=== PATIENT | female | born 1955 | race African-American/Black ===

== ENCOUNTER 2019-08-03 14:29 | Emergency (ER) | payer MEDICARE, OTHER ==
[~2019-08-03] VITALS: Ht 160 cm; Wt 99.8 kg
[2019-08-03] MEDS ORDERED: CARVEDILOL12.5 MG ORAL (14:48)
[2019-08-03] MEDS ORDERED: PRO-STAT LIQUID30 ML ORAL (14:48)
[2019-08-03] MEDS ORDERED: VITAMIN C500 M1 ORAL (14:48)
[2019-08-03] MEDS ORDERED: MULTIVITAMINS1 EAC2 ORAL (14:48)
[2019-08-03] MEDS ORDERED: LOSARTAN POTASS50 MG ORAL (14:48)
[2019-08-03] MEDS ORDERED: ATORVASTATIN CA40 MG ORAL (14:48)
[2019-08-03] MEDS ORDERED: CLONIDINE HCL0.2 MG PO (14:48)
[2019-08-03] MEDS ORDERED: NORCO 5-325 TA1 EACH ORAL (14:48)
[2019-08-03] MEDS ORDERED: ISOSORBIDE MONO20 MG PO (14:48)
[2019-08-03] MEDS ORDERED: ALLOPURINOL100 M1 ORAL (14:48)
[2019-08-03] MEDS ORDERED: ZINC SULFATE220 M1 ORAL (14:48)
--- NOTE | 2019-08-03 14:50 | NUR ---
ED Nurse Note: Pt JOSSELYN PEREIRA 60 from [facility] d/t [facility]. Pt awake, verbally responsive, oriented to self only. On room air, saturating 100% at this time. at bedside, states pt has history of stroke x3 months ago. Pt placed on hospital gown, manager monitoring, and cont. pulse ox. Pt vomiting, ERMD at bedside, aware. IV on left wrist and right FA noted. Blood glucose 238. EKG done.
--- NOTE | 2019-08-03 14:50 | Emergency Room Report ---
History of Present Illness General Chief Complaint: Altered Level of Consciousness Source: Family Member, Medical Record, EMS Present Illness HPI Disclaimer: Please note that this report is being documented using [employer] technology. This can lead to erroneous entry secondary to incorrect interpretation by the dictating instrument. HPI: 64-year-old female with history of multiple prior strokes, the last of which approximately 2.5 to 3 months ago, residual right-sided weakness, dementia , memory deficits, hypertension, hyperlipidemia, diabetes presents for evaluation of altered mental status. She was in her usual state of health with her family when she had sudden change in her mentation. Family says she lost consciousness and was unresponsive for several minutes. She awoke and was able to answer some questions but is not behaving normally according to family. EMS found her with systolic blood pressures in the 90s and blood sugar in the 350s. She is moving all extremities though has weakness on the right side. is here he states she had a stroke approximately 2.5 to 3 months ago but cannot recall whether he was ischemic or hemorrhagic. Does not believe she was given clot busting medications PMH: CVA, diabetes, hypertension, hyperlipidemia, memory deficits, weakness PSH: Right TMA Allergies: None listed Social Hx: None reported Allergies: Coded Allergies: No Known Allergies (Unverified , 08/03/19) Nursing Documentation-PMH Hx Hypertension: Yes Hx Diabetes: Yes - CKD Hx Cerebrovascular Accident: Yes Review of Systems All Other Systems: negative except mentioned in HPI Physical Exam Vital Signs Date Time Temp Pulse Resp B/P (MAP) Pulse Ox O2 Delivery O2 Flow Rate FiO2 08/03/19 14:29 97.9 88 18 149/60 (89) 98 Room Air General: Awake and alert, no acute distress HEENT: NC/AT. EOMI. PERRLA. Cannot assess visual sims. No nystagmus. Facial expressions are symmetrical. No facial droop. Cardiovascular: RRR. S1 and S2 normal. No murmur appreciated Resp: Normal work of breathing. No cough, wheezing or crackles appreciated Abdomen: Patient actively vomiting during exam. Abdomen is soft, nondistended. Nontender Skin: Intact. No abrasions, laceration or rash over the exposed skin MSK: Normal tone and bulk. Moving all extremities. No obvious deformity. No drift in the upper extremities. The left leg falls to the bed immediately as does the right leg. Some effort against gravity on both sides. Right TMA scar is intact, no surrounding erythema. Neuro: Awake and alert confused. Oriented to self only.. Facial expression symmetrical. No dysarthria. Cannot perform testing for ataxia. Sensation to light touch is intact over the upper and lower extremities. Fund of knowledge is very poor. Possible aphasia. NIH: 8 Procedures Critical Care Time Critical Care Time Total critical care time: Approximately 45 minutes Due to a high probability of clinically significant, life threatening deterioration, the patient required the highest level of preparedness to intervene emergently and I personally spent this critical care time directly and personally managing the patient. This critical care time included obtaining a history, examining the patient, pulse oximetry, ordering and reviewing studies , ordering treatments, evaluating response to treatment and updating management plan as needed, frequent reassessment and discussion with other providers as well as arranging for ultimate disposition. This critical to care time was performed to assess and manage the high probability of life-threatening deterioration that could result in multiorgan failure. This critical care time is separate from the separately billable procedures and treating other patients. Medical Decision Making Diagnostic Impression: Primary Impression: Altered level of consciousness Additional Impressions: Encephalopathy UTI (urinary tract infection) HEIDI (acute kidney injury) Hyperkalemia ER Course This 64-year-old female presenting with altered mental status, NIH of 8, actively vomiting with symptom onset approximately 30 minutes ago. She has a recent stroke within the past 2.5 to 3 months at [facility]. We will attempt to obtain records however at this time it appears that this would be a contraindication to thrombolytic therapy. Will send for stat CT scan of the head. Metabolic and infectious work-up initiated. Laboratory Tests Test 08/03/19 15:00 08/03/19 15:50 White Blood Count 7.1 K/UL (4.8-10.8) Red Blood Count 3.33 M/UL (4.20-5.40) L Hemoglobin 9.6 G/DL (12.0-16.0) L Hematocrit 29.1 % (37.0-47.0) L Mean Corpuscular Volume 87 FL (80-99) Mean Corpuscular Hemoglobin 28.9 PG (27.0-31.0) Mean Corpuscular Hemoglobin Concent 33.0 G/DL (32.0-36.0) Red Cell Distribution Width 17.4 % (11.6-14.8) H Platelet Count 177 K/UL (150-450) Mean Platelet Volume 9.4 FL (6.5-10.1) Neutrophils (%) (Auto) 48.9 % (45.0-75.0) Lymphocytes (%) (Auto) 39.0 % (20.0-45.0) Monocytes (%) (Auto) 7.0 % (1.0-10.0) Eosinophils (%) (Auto) 4.0 % (0.0-3.0) H Basophils (%) (Auto) 1.1 % (0.0-2.0) Prothrombin Time 10.1 SEC (9.30-11.50) Prothrombin Time INR 0.9 (0.9-1.1) PTT 23 SEC (23-33) Sodium Level 140 MMOL/L (136-145) Potassium Level 5.9 MMOL/L (3.5-5.1) H Chloride Level 106 MMOL/L (98-107) Carbon Dioxide Level 24 MMOL/L (21-32) Anion Gap 10 mmol/L (5-15) Blood Urea Nitrogen 53 mg/dL (7-18) H Creatinine 3.6 MG/DL (0.55-1.30) H Estimate Glomerular Filtration Rate 15.5 mL/min (>60) Glucose Level 237 MG/DL (74-106) H Calcium Level 10.0 MG/DL (8.5-10.1) Total Bilirubin 0.2 MG/DL (0.2-1.0) Aspartate Amino Transferase (AST) 17 U/L (15-37) Alanine Aminotransferase (ALT) 23 U/L (12-78) Alkaline Phosphatase 181 U/L (46-116) H Troponin I 0.006 ng/mL (0.000-0.056) Total Protein 8.0 G/DL (6.4-8.2) Albumin 2.3 G/DL (3.4-5.0) L Globulin 5.7 g/dL Albumin/Globulin Ratio 0.4 (1.0-2.7) L Triglycerides Level 63 MG/DL (30-150) Cholesterol Level 123 MG/DL (< 200) LDL Cholesterol 61 mg/dL (<100) HDL Cholesterol 51 MG/DL (40-60) Cholesterol/HDL Ratio 2.4 (3.3-4.4) L Lipase 1018 U/L (73-393) H Urine Color Pale yellow Urine Appearance Very cloudy Urine pH 7 (4.5-8.0) Urine Specific [place] 1.005 (1.005-1.035) Urine Protein 4+ (NEGATIVE) H Urine Glucose (UA) 2+ (NEGATIVE) H Urine Ketones Negative (NEGATIVE) Urine Blood 3+ (NEGATIVE) H Urine Nitrite Negative (NEGATIVE) Urine Bilirubin Negative (NEGATIVE) Urine Urobilinogen Normal MG/DL (0.0-1.0) Urine Leukocyte Esterase 3+ (NEGATIVE) H Urine RBC 2-4 /HPF (0 - 2) H Urine WBC Tntc /HPF (0 - 2) H Urine Squamous Epithelial Cells Few /LPF (NONE/OCC) Urine Bacteria Few /HPF (NONE) EKG Diagnostic Results EKG Time: 14:53 Rate: normal Rhythm: NSR ST Segments: no acute changes Other Impression Sinus rhythm, right axis deviation, inverted T waves in the precordial leads V3 through V6. No ST segment changes. Normal intervals. Rhythm Strip Diag. Results Rhythm Strip Time: 14:53 EP Interpretation: yes Rate: 70 Rhythm: NSR, no PVC's, no ectopy CT/MRI/US Diagnostic Results CT/MRI/US Diagnostic Results : Impression Preliminary Findings Only See Final Report For Complete Findings MRI HEAD Without Contrast: Possible 4 mm small lacunar infarct right of midline pericallosal body image 21 series 3 Chronic and involutional changes No midline shift Major intracranial flow voids appear within limits Radiologist: Larry Britt M.D. Study ready at 17:07 and initial results transmitted at 18:07 Reevaluation Time: 15:22 Last Vital Signs Date Time Temp Pulse Resp B/P (MAP) Pulse Ox O2 Delivery O2 Flow Rate FiO2 08/03/19 14:29 97.9 88 18 149/60 (89) 98 Room Air Reevaluation Impression CT scan does not show evidence of acute bleed but there is evidence of moderate brain atrophy as well as chronic small vessel disease involving white matter tracts. Patient symptoms are improving. She is now more conversant and can follow complex directions. Family states that she is near her baseline. She is no longer vomiting. Given the proximity of her last stroke and her rapidly improving symptoms we have chosen not to give thrombolytics at this time. Continue to watch closely and admit to the hospital for close monitoring. Labs are pending. 1740: Labs show mild hyperkalemia as well as an acute kidney injury with an elevated creatinine and BUN. There is also evidence of a significant urinary tract infection. The patient was given ceftriaxone. Mentation continues to improve but according to her she is still not returned to her baseline. 1914 MRI shows a questionable lacunar infarct. Unclear whether or not this is new and a final report will be dictated. Patient remained stable for transport. [facility] Condition: Stable Caleb Burgos MD Aug 03, 2019 14:50
--- NOTE | 2019-08-03 14:55 | NUR ---
ED Nurse Note: Pt picked up for CT.
[2019-08-03 15:30] VITALS: BP 142/52
--- NOTE | 2019-08-03 15:40 | Diagnostic Imaging Report ---
Indication: Altered mental status Technique: Contiguous 5 mm thick transaxial imaging of the head obtained in a Siemens Sensation [address] scanner. Soft tissue and bone windows generated. Automatic Exposure Control was utilized. Total Dose length Product (DLP): 1293.[address] Dose Index Volume (CTDIvol): 62.7 mGy Comparison: none Findings: There is moderate prominence of the ventricles, basal cisterns, and cerebral sulci consistent with atrophy. Moderate, nonspecific, white matter hypoattenuation is noted throughout the brain consistent with chronic small vessel disease. There is no midline shift, edema, acute hemorrhage, mass effect, or abnormal extra-axial fluid collections. Bones are unremarkable. Impression: No acute intracranial bleed, mass effect or edema. Moderate atrophy of the brain. Evidence of chronic small vessel disease involving white matter tracts. The CT scanner at [facility] is accredited by the [employer] and the scans are performed using dose optimization techniques as appropriate to a performed exam including Automatic Exposure control.
[2019-08-03 15:49] LABS: BASOPHILS % (AUTO) 1.1 % (0.0-2.0); HEMATOCRIT 29.1 % (37.0-47.0); HEMOGLOBIN 9.6 G/DL (12.0-16.0); MEAN CORPUSCULAR VOLUME 87 FL (80-99); NEUTROPHILS % (AUTO) 48.9 % (45.0-75.0); PLATELET COUNT 177 K/UL (150-450); RED BLOOD COUNT 3.33 M/UL (4.20-5.40); RED CELL DISTRIBUTION WIDTH 17.4 % (11.6-14.8); WHITE BLOOD COUNT 7.1 K/UL (4.8-10.8)
--- NOTE | 2019-08-03 15:50 | NUR ---
ED Nurse Note: Peña catheter inserted, 16Fr, patient tolerated procedure well. Urine sample collected and swabs for MRSA/VRE/CRE done, sent down to labs.
[2019-08-03 15:54] LABS: INR 0.9 (0.9-1.1)
--- NOTE | 2019-08-03 15:58 | NUR ---
ED Nurse Note: Patient picked up for MRI.
[2019-08-03 16:04] LABS: ANION GAP 10 mmol/L (5-15); BLOOD UREA NITROGEN 53 mg/dL (7-18); CARBON DIOXIDE 24 MMOL/L (21-32); CHLORIDE 106 MMOL/L (98-107); CREATININE 3.6 MG/DL (0.55-1.30); POTASSIUM 5.9 MMOL/L (3.5-5.1); SODIUM 140 MMOL/L (136-145)
[2019-08-03 16:10] LABS: ALANINE AMINOTRANSFERASE 23 U/L (12-78); ALBUMIN 2.3 G/DL (3.4-5.0); ALBUMIN/GLOBULIN RATIO 0.4 (1.0-2.7); ALKALINE PHOSPHATASE 181 U/L (46-116); ASPARTATE AMINO TRANSFERASE 17 U/L (15-37); BILIRUBIN,TOTAL 0.2 MG/DL (0.2-1.0); CHOLESTEROL 123 MG/DL (< 200); HDL CHOLESTEROL 51 MG/DL (40-60); TRIGLYCERIDES 63 MG/DL (30-150)
[2019-08-03 16:33] LABS: APPEARANCE,URINE VERY CLOUDY; BILIRUBIN, URINE NEGATIVE (NEGATIVE); COLOR,URINE PALE YELLOW; GLUCOSE, URINE (UA) 2+ (NEGATIVE); KETONES,URINE NEGATIVE (NEGATIVE); LEUKOCYTE ESTERASE ,URINE 3+ (NEGATIVE); NITRITE,URINE NEGATIVE (NEGATIVE); PH,URINE 7 (4.5-8.0); PROTEIN,URINE 4+ (NEGATIVE); UROBILINOGEN,URINE NORMAL MG/DL (0.0-1.0)
--- NOTE | 2019-08-03 16:42 | NUR ---
ED Nurse Note: Pt back from MRI. In stable condition
--- NOTE | 2019-08-03 17:10 | NUR ---
ED Nurse Note: Pt in bed, no c/o pain, no s/s distress. IV fluids started. Will continue to monitor.
[2019-08-03 17:45] VITALS: BP 177/76
--- NOTE | 2019-08-03 18:08 | Diagnostic Imaging Report ---
Indication: Altered mental status Technique: sagittal T1 fast spin echo, axial T1 FLAIR, axial T2 FLAIR, axial T2 FS PROPELLER, axial T2* GRE, axial diffusion weighted images. ADC and exponential ADC maps generated Comparison: none Findings: Motion artifact degrades the GRE sequence. There is small focus of restricted diffusion in the posterior right parasagittal frontal lobe just above the lateral ventricle. There is some faint abnormal diffusion signal in the left high parietal deep white matter. This is probably just T2 shine through artifact. No other abnormal foci of restricted diffusion are demonstrated.. No acute hemorrhage or edema. No mass effect nor midline shift. There is age-related enlargement of the ventricles and extra axial CSF spaces. There is fairly extensive periventricular deep white matter low-attenuation, consistent with chronic microvascular ischemic change. There is an old lacunar infarct in the left frontal deep white matter. There is asymmetric high T2 signal in the left posterior parietal deep white matter, may indicate a component of encephalomalacia. The vascular flow voids are preserved. There is evidence of prior bilateral cataract surgery.. Visualized orbits and sinuses are unremarkable. There is some high T2 signal in the bilateral mastoids, suggestive of effusion, although this is not corroborated on the earlier CT scan Impression: Positive for acute right periventricular deep white matter lacunar infarct Negative for acute intracranial bleed or mass effect Other chronic and age-related changes, as described. This agrees with the preliminary interpretation provided overnight by [facility].
--- NOTE | 2019-08-03 18:30 | NUR ---
ER DISCHARGE NOTE: Patient is cleared to be transferred per ERMD, pt is aox1, on room air. pt accompanied by 2 ambulance personnel from [facility]. No s/s pain/distres, remained in stable condition.
--- NOTE | 2019-08-03 18:30 | NUR ---
ED Nurse Note: Picked up by [facility] ambulance to transfer to [facility]. Patient in stable condition.
--- NOTE | 2019-08-03 18:36 | NUR ---
ED Nurse Note: Report given to ANDI Harding from [facility] via telephone.
[2019-08-03 18:54] VITALS: BP 170/71
--- NOTE | 2019-08-05 12:49 | Cardiology Report ---
APPROVED REPORT EKG Measurement Heart [id number] [id number] Normal sinus rhythm Right axis deviation T wave abnormality, consider anterolateral ischemia Abnormal ECG
== END 2019-08-03 18:30 | disposition short-term general hospital (02) ==
LOC: EDBD 14:29 → EMR 15:53
DX: I12.9 Hypertensive chronic kidney disease with stage 1 through stage 4 chronic kidney disease, or unspecified chronic kidney disease (principal); N18.9 Chronic kidney disease, unspecified; N17.9 Acute kidney failure, unspecified; R41.82 Altered mental status, unspecified; G93.40 Encephalopathy, unspecified; N39.0 Urinary tract infection, site not specified; E87.5 Hyperkalemia; I69.851 Hemiplegia and hemiparesis following other cerebrovascular disease affecting right dominant side; F03.90 Unspecified dementia, unspecified severity, without behavioral disturbance, psychotic disturbance, mood disturbance, and anxiety; E11.22 Type 2 diabetes mellitus with diabetic chronic kidney disease; E78.5 Hyperlipidemia, unspecified
CPT/HCPCS: 36415; 70450; 70551; 80053; 80061; 81003; 82962; 83690; 84484; 85025; 85610; 85730; 87040; 87081; 87086; 87181; 93005; 96361; 96374; J2405; Z7502; 99291; J7030

== ENCOUNTER 2019-10-29 18:02 | Inpatient (IN) | payer MEDICARE, OTHER ==
[~2019-10-29] VITALS: Ht 162.6 cm; Wt 96.2 kg
[~2019-10-29 18:02] MED LIST: ALLOPURINOL100 M1 ORAL; ATORVASTATIN CA40 MG ORAL; CARVEDILOL12.5 MG ORAL; CLONIDINE HCL0.2 MG PO; ISOSORBIDE MONO20 MG PO; LOSARTAN POTASS50 MG ORAL; MULTIVITAMINS1 EAC2 ORAL; NORCO 5-325 TA1 EACH ORAL; PRO-STAT LIQUID30 ML ORAL; VITAMIN C500 M1 ORAL; ZINC SULFATE220 M1 ORAL
[2019-10-29] MEDS ORDERED: Acetaminophen 650 MG SUPP RECTAL ONE (18:15)
[2019-10-29 20:00] VITALS: BP 173/68
--- NOTE | 2019-10-29 20:00 | NUR ---
ED Nurse Note: Pt brought into ED from [facility] by IRVIN VALLE for c/o fever and ALOC. Per IRVIN pt had a fever today at alf and at bedside states pt has been altered from baseline. Upon ED arrival pt has temp of 102F. Pt is alert and awake at this time and able to answer questions pertaining to person, place, purpose and time. Pt is breathing normal and unlabored, no cardiac distress noted. Pt placed on monitoring and evaluation advisor and into gown. 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 Will continue to monitor.
[2019-10-29 20:05] VITALS: BP 168/84
--- NOTE | 2019-10-29 20:05 | NUR ---
ED Nurse Note: Upon placing pt on child monitor, pt o2 saturation was in the high 80's. Pt placed on 2L oxygen via nc and patient maintaining oxygen sat at 97%.
[2019-10-29 20:36] LABS: HEMATOCRIT 19.1 % (37.0-47.0); INR 1.1 (0.9-1.1); MEAN CORPUSCULAR VOLUME 95 FL (80-99); PLATELET COUNT 163 K/UL (150-450); RED BLOOD COUNT 2.01 M/UL (4.20-5.40); RED CELL DISTRIBUTION WIDTH 17.9 % (11.6-14.8); WHITE BLOOD COUNT 7.5 K/UL (4.8-10.8)
[2019-10-29 20:39] LABS: HEMOGLOBIN 6.2 G/DL (12.0-16.0)
[2019-10-29 21:01] LABS: ALANINE AMINOTRANSFERASE 52 U/L (12-78); ALBUMIN 2.2 G/DL (3.4-5.0); ALBUMIN/GLOBULIN RATIO 0.4 (1.0-2.7); ALKALINE PHOSPHATASE 152 U/L (46-116); ANION GAP 13 mmol/L (5-15); ASPARTATE AMINO TRANSFERASE 86 U/L (15-37); BILIRUBIN,TOTAL 0.4 MG/DL (0.2-1.0); BLOOD UREA NITROGEN 84 mg/dL (7-18); CALCIUM 8.4 MG/DL (8.5-10.1); CARBON DIOXIDE 17 MMOL/L (21-32); CHLORIDE 111 MMOL/L (98-107); CKMB 1.5 NG/ML (0.0-3.6); CREATINE KINASE 203 U/L (26-308); SODIUM 141 MMOL/L (136-145)
--- NOTE | 2019-10-29 21:08 | Emergency Room Report ---
History of Present Illness General Chief Complaint: Altered Level of Consciousness Source: Family Member, EMS Present Illness HPI EMS was called to the patient's home by the because of altered level of consciousness. Apparently she had a fever also. The patient is unable to give medical history at this time. According to her she has had problems with her kidneys and received blood transfusions in the past. He denies vomiting or diarrhea. Patient seen July 2019. Transferred due to lacunar infarct. Reevaluation Impression CT scan does not show evidence of acute bleed but there is evidence of moderate brain atrophy as well as chronic small vessel disease involving white matter tracts. Patient symptoms are improving. She is now more conversant and can follow complex directions. Family states that she is near her baseline. She is no longer vomiting. Given the proximity of her last stroke and her rapidly improving symptoms we have chosen not to give thrombolytics at this time. Continue to watch closely and admit to the hospital for close monitoring. Labs are pending. 1740: Labs show mild hyperkalemia as well as an acute kidney injury with an elevated creatinine and BUN. There is also evidence of a significant urinary tract infection. The patient was given ceftriaxone. Mentation continues to improve but according to her she is still not returned to her baseline. 1914 MRI shows a questionable lacunar infarct. Unclear whether or not this is new and a final report will be dictated. Patient remained stable for transport. Disposition: [facility] Condition: Stable Allergies: Coded Allergies: No Known Allergies (Unverified , 08/03/19) Patient History Past Medical History: see triage record Social History: Denies: smoking, drug use Social History Narrative Reviewed Nursing Documentation: PMH: Agreed; PSxH: Agreed Nursing Documentation-PMH Hx Hypertension: Yes Hx Diabetes: Yes - CKD Hx Cerebrovascular Accident: Yes Review of Systems All Other Systems: limited Physical Exam Vital Signs Date Time Temp Pulse Resp B/P (MAP) Pulse Ox O2 Delivery O2 Flow Rate FiO2 10/29/19 17:59 102.0 96 18 173/68 (103) 98 Sp02 EP Interpretation: reviewed, normal General Appearance: no apparent distress, other - Confused but eyes open, Chronically Ill Head: normocephalic Eyes: bilateral eye normal inspection, bilateral eye PERRL, bilateral eye conjunctivae pale ENT: dry mucus membranes Neck: supple, no meningismus Respiratory: lungs clear, no respiratory distress, decreased breath sounds Cardiovascular #1: regular rate, rhythm, edema - Trace bilateral lower extremities Cardiovascular #2: 2+ radial (R) Gastrointestinal: normal inspection, non tender, no mass, non-distended, decreased bowel sounds, overweight Genitourinary: no CVA tenderness Musculoskeletal: back normal, no calf tenderness Neurologic: sensory intact, motor weakness - Diffuse, other Psychiatric: other - Lethargic Skin: no rash, pallor, other - Febrile Procedures Critical Care Time Critical Care Time Total Critical Care Time: 90 min bedside evaluation and treatment excludes procedures (EKG). Reason for critical care: Altered mentation, sepsis, renal failure, hyperkalemia , elevated troponin, hypertension, profound anemia Possible complications: hypotension, hypertension, IA, shock, arrhythmias, metabolic acidosis, end organ damage, respiratory failure. Interventions: Fluid bolus, antibiotics, repeat evaluation, blood transfusion, treatment of elevated troponin, treatment of hypertension, treatment of hyperkalemia Course: Patient presented with fever and altered mentation. Immediate evaluation for sepsis. Also sepsis resuscitation and antibiotic administration. Profound anemia with ordering of blood. Elevated troponin call. Aspirin and nitrates administered. Hyperkalemia treated. Arias evaluation with improvement. Discussed with family members. Blood transfusion consent. Hypertension treated with metoprolol. Arias evaluation and hypotension again treated with hydralazine. Patient improved but still critical. Consultations: nursing staff, EMS, family, admitting physician Performed by: Dr. Randolph Tolerated well condition = critical Medical Decision Making Diagnostic Impression: Primary Impression: Altered level of consciousness Additional Impressions: Sepsis Qualified Codes: A41.9 - Sepsis, unspecified organism; R65.20 - Severe sepsis without septic shock; N17.9 - Acute kidney failure, unspecified Renal failure Qualified Codes: N17.9 - Acute kidney failure, unspecified; N18.4 - Chronic kidney disease, stage 4 (severe) Elevated troponin Profound anemia Qualified Codes: D64.9 - Anemia, unspecified Hyperkalemia Elevated brain natriuretic peptide (BNP) level Hypertension Qualified Codes: I10 - Essential (primary) hypertension UTI (urinary tract infection) Qualified Codes: N39.0 - Urinary tract infection, site not specified ER Course Patient presents with altered level of consciousness with fever. Differential includes sepsis, acute myocardial infarction, electrolyte abnormality, hepatic encephalopathy, occult infection amongst others. Evaluation with EKG, chest x- ray and labs initial fluid bolus and Tylenol ordered. Placed on a school health assistant. SEPSIS RE-EVALUATION: Called with low hemoglobin, elevated troponin and potassium. Clinically the patient appears to be septic however this suggests that she might be in renal failure also. We need to be judicious about fluid administration. Blood transfusion ordered, treatment of hyperkalemia, aspirin and nitrates ordered. Antibiotics also will be ordered. IBk MD, Performed the Sepsis Re-evaluation at 21:07. Discussed blood transfusion with and patient. She has had blood transfusions in the past. They are in agreement. Discussed other findings also. EKG without injury. Chest x-ray with unusual color lesion right upper lobe increase foley suggesting some pulmonary hypertension No obvious pulmonary edema. White count normal with left shift. Elevated potassium. BUN and creatinine elevated prior. Patient with improved mentation. The patient initially refused rectal Tylenol however agreed after importance was explained to them. Denies pain. Blood pressure high. Metoprolol administered. Blood begun in the emergency department. This is emergent as she demonstrates cardiac injury. Blood pressure remains high. Hydralazine administered. Patient improved but still critical. Admitted to stepdown unit. Patient is oliguric she might require renal dialysis. Laboratory Tests Test 10/29/19 19:35 10/29/19 21:20 10/30/19 01:09 White Blood Count 7.5 K/UL (4.8-10.8) Red Blood Count 2.01 M/UL (4.20-5.40) L Hemoglobin 6.2 G/DL (12.0-16.0) *L Hematocrit 19.1 % (37.0-47.0) L Mean Corpuscular Volume 95 FL (80-99) Mean Corpuscular Hemoglobin 30.8 PG (27.0-31.0) Mean Corpuscular Hemoglobin Concent 32.4 G/DL (32.0-36.0) Red Cell Distribution Width 17.9 % (11.6-14.8) H Platelet Count 163 K/UL (150-450) Mean Platelet Volume 7.9 FL (6.5-10.1) Neutrophils (%) (Auto) % (45.0-75.0) Lymphocytes (%) (Auto) % (20.0-45.0) Monocytes (%) (Auto) % (1.0-10.0) Eosinophils (%) (Auto) % (0.0-3.0) Basophils (%) (Auto) % (0.0-2.0) Differential Total Cells Counted 100 Neutrophils % (Manual) 83 % (45-75) H Lymphocytes % (Manual) 12 % (20-45) L Monocytes % (Manual) 5 % (1-10) Eosinophils % (Manual) 0 % (0-3) Basophils % (Manual) 0 % (0-2) Band Neutrophils 0 % (0-8) Platelet Estimate Adequate Platelet Morphology Normal Prothrombin Time 11.6 SEC (9.30-11.50) H Prothrombin Time INR 1.1 (0.9-1.1) Activated Partial Thromboplast Time 32 SEC (23-33) Sodium Level 141 MMOL/L (136-145) Potassium Level 6.0 MMOL/L (3.5-5.1) *H Chloride Level 111 MMOL/L (98-107) H Carbon Dioxide Level 17 MMOL/L (21-32) L Anion Gap 13 mmol/L (5-15) Blood Urea Nitrogen 84 mg/dL (7-18) H Creatinine 5.0 MG/DL (0.55-1.30) H Estimate Glomerular Filtration Rate 10.7 mL/min (>60) Glucose Level 198 MG/DL (74-106) H Lactic Acid Level 1.50 mmol/L (0.4-2.0) Calcium Level 8.4 MG/DL (8.5-10.1) L Magnesium Level 1.8 MG/DL (1.8-2.4) Total Bilirubin 0.4 MG/DL (0.2-1.0) Aspartate Amino Transferase (AST) 86 U/L (15-37) H Alanine Aminotransferase (ALT) 52 U/L (12-78) Alkaline Phosphatase 152 U/L (46-116) H Ammonia 24 umol/L (11-32) Total Creatine Kinase 203 U/L (26-308) Creatine Kinase MB 1.5 NG/ML (0.0-3.6) Creatine Kinase MB Relative Index 0.7 Troponin I 3.385 ng/mL (0.000-0.056) Pro-B-Type Natriuretic Peptide > 66479 pg/mL (0-125) H Total Protein 7.2 G/DL (6.4-8.2) Albumin 2.2 G/DL (3.4-5.0) L Globulin 5.0 g/dL Albumin/Globulin Ratio 0.4 (1.0-2.7) L Lipase 243 U/L (73-393) Urine Color Pale yellow Urine Appearance Cloudy Urine pH 5 (4.5-8.0) Urine Specific [place] 1.015 (1.005-1.035) Urine Protein 4+ (NEGATIVE) H Urine Glucose (UA) 1+ (NEGATIVE) H Urine Ketones Negative (NEGATIVE) Urine Blood 4+ (NEGATIVE) H Urine Nitrite Negative (NEGATIVE) Urine Bilirubin Negative (NEGATIVE) Urine Urobilinogen Normal MG/DL (0.0-1.0) Urine Leukocyte Esterase 3+ (NEGATIVE) H Urine RBC Tntc /HPF (0 - 2) H Urine WBC Tntc /HPF (0 - 2) H Urine Squamous Epithelial Cells Moderate /LPF (NONE/OCC) H Urine Amorphous Sediment Many /LPF (NONE) H Urine Bacteria Many /HPF (NONE) H Urine Random Sodium Pending Urine Creatinine Pending Microbiology Date/Time Source Procedure Growth Status 10/29/19 19:40 Nasal Nares - Final Complete 10/29/19 19:40 Nasal Nares - Final Complete EKG Diagnostic Results Rate: normal Rhythm: NSR ST Segments: no acute changes - Nonspecific ST-T wave changes no STEMI no peak T waves Rhythm Strip Diag. Results EP Interpretation: yes Rhythm: NSR, no PVC's, no ectopy Chest X-Ray Diagnostic Results Chest X-Ray Diagnostic Results : Chest X-Ray Ordered: Yes # of Views/Limited/Complete: 1 View Indication: Other EP Interpretation: Yes Interpretation: no effusion, no pneumothorax, other - Possible right upper lobe infiltrate versus reversal of flow Impression: Other Electronically Signed by: Electronically signed by Bk Randolph MD Last Vital Signs Date Time Temp Pulse Resp B/P (MAP) Pulse Ox O2 Delivery O2 Flow Rate FiO2 10/30/19 01:15 185/61 10/29/19 23:40 98.0 67 14 10/29/19 22:35 97 Nasal Cannula 2.0 Hydralazine administered after he is vital signs. Status: improved Disposition: ADMITTED INPATIENT Condition: Critical Referrals: Jake Alvarado MD (PCP) Bk Randolph MD Oct 29, 2019 21:08
[2019-10-29] MEDS ORDERED: Aspirin Baby 81mg ORAL ONE (21:15)
[2019-10-29] MEDS ORDERED: Sodium Polystyrene Sulfonate 15gm Powder ORAL ONE (21:15)
[2019-10-29] MEDS ORDERED: Calcium Gluconate 1gm/10ml vial IVP ONE (21:15)
[2019-10-29] MEDS ORDERED: Sodium Bicarbonate 50ml Carp IV ONE (21:15)
[2019-10-29] MEDS ORDERED: Nitroglycerin 2% oint pkt TOPIC ONE (21:15)
[2019-10-29 22:01] LABS: APPEARANCE,URINE CLOUDY; BILIRUBIN, URINE NEGATIVE (NEGATIVE); COLOR,URINE PALE YELLOW; GLUCOSE, URINE (UA) 1+ (NEGATIVE); KETONES,URINE NEGATIVE (NEGATIVE); LEUKOCYTE ESTERASE ,URINE 3+ (NEGATIVE); NITRITE,URINE NEGATIVE (NEGATIVE); PH,URINE 5 (4.5-8.0); PROTEIN,URINE 4+ (NEGATIVE); UROBILINOGEN,URINE NORMAL MG/DL (0.0-1.0)
[2019-10-29 22:35] VITALS: BP 180/62
--- NOTE | 2019-10-29 22:35 | NUR ---
ED Nurse Note: EJ vega aware of pt elevated BP.
[2019-10-29] MEDS ORDERED: Metoprolol Tartrate 5mg/5ml Inj IVP STA (22:41)
[2019-10-30] VITALS (7 sets, daily range): BP systolic 145–185; BP diastolic 60–84
--- NOTE | 2019-10-30 00:30 | NUR ---
ED Nurse Note: Pt refused rectal swab for cre/vre.
--- NOTE | 2019-10-30 00:45 | NUR ---
ED Nurse Note: Report given to ANDI Senior.
--- NOTE | 2019-10-30 00:55 | NUR ---
NURSE NOTES: received report from Georgina ESCAMILLA. awaiting Pt arrival.
--- NOTE | 2019-10-30 01:30 | NUR ---
ED Nurse Note: Pt is stable for transfer to SDU unit. Charge nurse aware of pt BP of 164/66, ERMD aware as well. Pt is aaox4, no cardiac or respiratory distress noted. Pt connected to air sampling and monitoring, PRBCs infusing at this time. Pt taken to unit via gurney by RN and tech. No acute distress noted.
--- NOTE | 2019-10-30 02:00 | NUR ---
NURSE NOTES: Pt was brought up with RN Georgina and data collection technician. pt remains stable. pt is alert and oriented times 3, able to follow commands. pt is on 2 L NC sating at 99%, no resp distress noted. pt is dredge mate showing NSR, no acute cardiac distress. pt bed low, locked, armed, call light within reach, bed rails up times 3. will establish plan of care. family at bed side, pt remains stable.
--- NOTE | 2019-10-30 02:24 | NUR ---
NURSE NOTES: Spoke with MD Alvarado, reported pts current vital signs, pts condition, and all lab work. RN requested admitting orders. MD stated to continue all home meds and all ER order until further assessed. additionally, stated he wants to order regular diet. SCD and venous duplex for DVT prophylaxis. MD does not want protonics for GI.
[2019-10-30] MEDS ORDERED: HYDROcodone/Acetamin 5/325 tab ORAL PRN (02:30)
--- NOTE | 2019-10-30 03:25 | NUR ---
NURSE NOTES: Spoke with the NURSE at [facility]. asked for PT info to obtain for admission. RN stated she does not know the pt. asked family DOROTHY member about vaccinations. he stats she is up to date with all vaccinations, pt refused flu, and unk for PNEUMONIA . .
--- NOTE | 2019-10-30 04:40 | NUR ---
NURSE NOTES: Pt 1st PRBC picked up by Chrissy ESCAMILLA. Addendum: 10/30/19 at 0458 by AIDA DEAN RN NURSE NOTES: Pt 2nd unit PRBC picked up by Chrissy ESCAMILLA.
--- NOTE | 2019-10-30 04:50 | NUR ---
NURSE NOTES: Pt 1st unit PRBC returned to Lab. pt remains stable.
--- NOTE | 2019-10-30 07:30 | NUR ---
HAND-OFF: Report given to ZHEN Locke RN. Pt remains stable.
--- NOTE | 2019-10-30 07:30 | NUR ---
NURSE NOTES: report received from Parrish Desir RN.Pt awake,alert sitting up high on bed eating breakfast noted no resp distress denies any c/o pain or discomfort,S-R on the monitor,skin warm and dry IV site intact,SR up x2 call light within reach bed lock in lowest position,spouse at bedside, will continue with plans of care.
--- NOTE | 2019-10-30 07:40 | NUR ---
NURSE NOTES: Ongoing blood transfusion completed,V/S monitored,stable no transfusion reaction presented.
[2019-10-30] MEDS: Carvedilol 12.5mg tab ORAL SCH ×2 (08:38→21:02)
[2019-10-30] MEDS: Allopurinol 100mg Tab ORAL SCH (08:38)
[2019-10-30] MEDS: Zinc Sulfate 220mg cap ORAL SCH (08:38)
[2019-10-30] MEDS: cloNIDine 0.2mg Tab ORAL SCH ×2 (08:39→18:55)
[2019-10-30] MEDS: Ascorbic Acid 500mg tab ORAL SCH (08:39)
[2019-10-30] MEDS ORDERED: Losartan 50mg tab ORAL SCH (09:00)
--- NOTE | 2019-10-30 11:57 | NUR ---
NURSE NOTES: Venous Duplex done,negative for DVT.
--- NOTE | 2019-10-30 13:37 | Diagnostic Imaging Report ---
Indication: Dyspnea Comparison: None A single view chest radiograph was obtained. Findings: There is a vague somewhat nodular appearing density projected over the right upper lobe. This may be pneumonia but the follow-up is recommended as the differential includes a underlying mass. Please correlate clinically as well. The heart is enlarged. Bones are osteopenic. IMPRESSION: Infiltrate versus mass in the right upper lobe. Follow-up chest x-ray and/or CT recommended. Findings conveyed to the emergency department at 11:54 AM, 10/30/2019
--- NOTE | 2019-10-30 15:56 | NUR ---
CASE MANAGEMENT:INITIAL REVIEW 64 YR OLD FEMALE BIBA FROM [facility] CC; ALTERED LEVEL OF CONSCIOUSNESS SI;SEPSIS. ELEVATED BNP. ELEVATED TROPONIN. ALOC. RENAL FAILURE. 102.0 96 18 185/61 97% 2L NC H/H 6.2/19.1 K+ 6.0 CL 111 BUN 84 CREAT 5.0 BG 198 CA 8.4 AST 86 TROP 1 3.385 BNP >59010 IS;IVF NS X1 ACETAMINOPHEN SUPP RECTAL X1 ADMITTED TO SDU SDU STATUS DCP;FROM [facility]
--- NOTE | 2019-10-30 16:00 | NUR ---
NURSE NOTES: Dr Wood at bedside,updated re pt's status,orders given.
--- NOTE | 2019-10-30 17:07 | GI Initial Consult Note ---
History of Present Illness General Date patient seen: Oct 30, 2019 Time patient seen: 17:07 Reason for Hospitalization: Altered Level of Consciousness Referring physician: JACKIE Reason for Consultation: ANEMIA Present Illness HPI This is a 64-year-old female patient that presented from home for altered level of consciousness. At the time of evaluation, the patient is unable to provide any medical history. According to the the patient has history of kidney disease and has had blood transfusions in the past. Patient was last seen here at [facility] in July 2019 was transferred due to lacunar infarct. GI consulted for anemia with low hemoglobin of 6.2, hematocrit 19.1. Labs reviewed most notable with hyperkalemia, elevated creatinine levels, elevated troponin levels, elevated alkaline phosphatase. Noted that ammonia levels and lipase levels are within normal limits. Unknown history of endoscopic or colonoscopy. Home Meds Reported Medications Zinc Sulfate (ZINC SULFATE*) 220 Mg Capsule, 220 MG ORAL DAILY, CAP 0 Refills 08/03/19 Isosorbide Mononitrate (ISOSORBIDE MONONITRATE) 20 Mg Tablet, 20 MG PO, TAB 08/03/19 Clonidine Hcl (CLONIDINE HCL) 0.2 Mg Tablet, 0.2 MG PO, TAB 08/03/19 Carvedilol* (CARVEDILOL*) 12.5 Mg Tablet, 12.5 MG ORAL EVERY 12 HOURS, TAB 08/03/19 Atorvastatin Calcium* (ATORVASTATIN CALCIUM*) 40 Mg Tablet, 40 MG ORAL BEDTIME, TAB 08/03/19 Allopurinol* (ALLOPURINOL*) 100 Mg Tablet, 100 MG ORAL DAILY, TAB 08/03/19 Ascorbic Acid* (VITAMIN C*) 500 Mg Tablet, 500 MG ORAL DAILY, #30 TAB 0 Refills 08/03/19 Amino Acids/Protein Hydrolys (PRO-STAT LIQUID) 30 Ml Liquid.pkt, 30 ML ORAL TWICE A DAY, ML 08/03/19 Hydrocodone Bit/Acetaminophen 5-325* (NORCO 5-325*) 1 Each Tablet, 1 TAB ORAL Q6H PRN for For Pain, #10 TAB 0 Refills 08/03/19 Multivitamins* (MULTIVITAMINS*) 1 Each Tablet, 1 TAB ORAL DAILY, TAB 0 Refills 08/03/19 Losartan Potassium* (LOSARTAN POTASSIUM*) 50 Mg Tablet, 50 MG ORAL DAILY, TAB 08/03/19 Med list reviewed/reconciled: Yes Allergies: Coded Allergies: No Known Allergies (Unverified , 08/03/19) Patient History Limited by: medical condition History Provided By: Family Member, Medical Record PMH Narrative Past Medical History: see triage record Social History: Denies: smoking, drug use Social History Narrative Reviewed Nursing Documentation: PMH: Agreed; PSxH: Agreed Nursing Documentation-PMH Hx Hypertension: Yes Hx Diabetes: Yes - CKD Hx Cerebrovascular Accident: Yes Social History: Denies: smoking, alcohol use, drug use, other Review of Systems All Other Systems: limited Physical Exam Vital Signs Date Time Temp Pulse Resp B/P (MAP) Pulse Ox O2 Delivery O2 Flow Rate FiO2 10/29/19 17:59 102.0 96 18 173/68 (103) 98 10/29/19 20:00 Room Air 10/29/19 20:05 2.0 Sp02 EP Interpretation: reviewed Labs Laboratory Tests Test 10/29/19 19:35 10/29/19 21:20 10/30/19 01:09 White Blood Count 7.5 K/UL (4.8-10.8) Red Blood Count 2.01 M/UL (4.20-5.40) L Hemoglobin 6.2 G/DL (12.0-16.0) *L Hematocrit 19.1 % (37.0-47.0) L Mean Corpuscular Volume 95 FL (80-99) Mean Corpuscular Hemoglobin 30.8 PG (27.0-31.0) Mean Corpuscular Hemoglobin Concent 32.4 G/DL (32.0-36.0) Red Cell Distribution Width 17.9 % (11.6-14.8) H Platelet Count 163 K/UL (150-450) Mean Platelet Volume 7.9 FL (6.5-10.1) Neutrophils (%) (Auto) % (45.0-75.0) Lymphocytes (%) (Auto) % (20.0-45.0) Monocytes (%) (Auto) % (1.0-10.0) Eosinophils (%) (Auto) % (0.0-3.0) Basophils (%) (Auto) % (0.0-2.0) Differential Total Cells Counted 100 Neutrophils % (Manual) 83 % (45-75) H Lymphocytes % (Manual) 12 % (20-45) L Monocytes % (Manual) 5 % (1-10) Eosinophils % (Manual) 0 % (0-3) Basophils % (Manual) 0 % (0-2) Band Neutrophils 0 % (0-8) Platelet Estimate Adequate Platelet Morphology Normal Prothrombin Time 11.6 SEC (9.30-11.50) H Prothromb Time International Ratio 1.1 (0.9-1.1) Activated Partial Thromboplast Time 32 SEC (23-33) Sodium Level 141 MMOL/L (136-145) Potassium Level 6.0 MMOL/L (3.5-5.1) *H Chloride Level 111 MMOL/L (98-107) H Carbon Dioxide Level 17 MMOL/L (21-32) L Anion Gap 13 mmol/L (5-15) Blood Urea Nitrogen 84 mg/dL (7-18) H Creatinine 5.0 MG/DL (0.55-1.30) H Estimat Glomerular Filtration Rate 10.7 mL/min (>60) Glucose Level 198 MG/DL (74-106) H Lactic Acid Level 1.50 mmol/L (0.4-2.0) Calcium Level 8.4 MG/DL (8.5-10.1) L Magnesium Level 1.8 MG/DL (1.8-2.4) Total Bilirubin 0.4 MG/DL (0.2-1.0) Aspartate Amino Transf (AST/SGOT) 86 U/L (15-37) H Alanine Aminotransferase (ALT/SGPT) 52 U/L (12-78) Alkaline Phosphatase 152 U/L (46-116) H Ammonia 24 umol/L (11-32) Total Creatine Kinase 203 U/L (26-308) Creatine Kinase MB 1.5 NG/ML (0.0-3.6) Creatine Kinase MB Relative Index 0.7 Troponin I 3.385 ng/mL (0.000-0.056) Pro-B-Type Natriuretic Peptide > 61880 pg/mL (0-125) H Total Protein 7.2 G/DL (6.4-8.2) Albumin 2.2 G/DL (3.4-5.0) L Globulin 5.0 g/dL Albumin/Globulin Ratio 0.4 (1.0-2.7) L Lipase 243 U/L (73-393) Urine Color Pale yellow Urine Appearance Cloudy Urine pH 5 (4.5-8.0) Urine Specific [place] 1.015 (1.005-1.035) Urine Protein 4+ (NEGATIVE) H Urine Glucose (UA) 1+ (NEGATIVE) H Urine Ketones Negative (NEGATIVE) Urine Blood 4+ (NEGATIVE) H Urine Nitrite Negative (NEGATIVE) Urine Bilirubin Negative (NEGATIVE) Urine Urobilinogen Normal MG/DL (0.0-1.0) Urine Leukocyte Esterase 3+ (NEGATIVE) H Urine RBC Tntc /HPF (0 - 2) H Urine WBC Tntc /HPF (0 - 2) H Urine Squamous Epithelial Cells Moderate /LPF (NONE/OCC) H Urine Amorphous Sediment Many /LPF (NONE) H Urine Bacteria Many /HPF (NONE) H Urine Random Sodium 26 mmol/L (20-110) Urine Creatinine 72.3 MG/DL (30.0-125.0) General Appearance: well appearing, no apparent distress, alert Head: normocephalic EENT: normal ENT inspection Neck: supple Respiratory: normal breath sounds Gastrointestinal: soft Skin: normal inspection, normal color, no rash, warm/dry Lymphatic: normal inspection, no adenopathy Current Medications Current Medications Medications (Trade) Dose Ordered Sig/Cb Route PRN Reason Start Time Stop Time Status Last Admin Dose Admin Acetaminophen/ Hydrocodone Bitart ([place] 5/325) 1 tab Q6H PRN ORAL For Pain 10/30/19 02:30 11/06/19 02:29 Allopurinol (Zyloprim) 100 mg DAILY ORAL 10/30/19 09:00 11/29/19 08:59 10/30/19 08:38 Ascorbic Acid (Vitamin C) 500 mg DAILY ORAL 10/30/19 09:00 11/29/19 08:59 10/30/19 08:39 Atorvastatin Calcium (Lipitor) 40 mg BEDTIME ORAL 10/30/19 21:00 11/29/19 20:59 Carvedilol (Coreg) 12.5 mg EVERY 12 HOURS ORAL 10/30/19 09:00 11/29/19 08:59 10/30/19 08:38 Clonidine HCl (Catapres tab) 0.2 mg BID ORAL 10/30/19 09:00 11/29/19 08:59 10/30/19 08:39 Levetiracetam (Keppra) 500 mg Q12HR ORAL 10/30/19 21:00 11/29/19 20:59 Losartan Potassium (Cozaar) 100 mg DAILY ORAL 10/31/19 09:00 11/30/19 08:59 Multivitamins (Multivitamins) 1 tab DAILY ORAL 10/30/19 09:00 11/29/19 08:59 10/30/19 08:39 Zinc Sulfate (Zinc Sulfate) 220 mg DAILY ORAL 10/30/19 09:00 11/29/19 08:59 10/30/19 08:38 GI: Plan Problems: (1) Elevated troponin (2) Profound anemia (3) Altered level of consciousness Plan Patient will need endoscopy and colonoscopy to evaluate anemia at some point, but will require cardiac clearance given elevated troponin levels. Monitor H&H, as needed transfusions >> patient status post 2 units of packed RBCs Will need post stat CBC and BMP Occult blood stool to evaluate GI bleed Anemia work-up We will need cardiology given elevated troponin levels Nephrology consultation given elevated creatinine levels Electrolyte correction PPI we will follow along on a daily basis with any additional recommendations Discussed with Dr. Toribio. Thank you for this patient referral, we will follow. The patient was seen and examined at bedside and all new and available data was reviewed in the patients chart. I agree with the above findings, impression and plan. (Patient seen earlier today. Signature stamp does not reflect patient encounter time.). - MD Nevaeh GraceCopper Springs HospitalJoan GATES Oct 30, 2019 17:07
--- NOTE | 2019-10-30 18:15 | NUR ---
NURSE NOTES:WOUND CARE NOTES:Pt presented on admission with full thickness sacral pressure injury Base of wound is beefy red with macerated borders further extending into cleft of buttocks.Small amt sanguineous exudate.Periwound is excoriated.(L)3.5cm x (W)5cm x (D)0.2cm. Partial thickness wound noted to medial upper L thigh. Base of wound is moist and viable. Edges adherent and flat with an extended elongated black border without induration or fluctuance that extends to posterior L upper thigh(L)0.5cm x (W)2.5cm. Unstageable pressure injury R heel. Base of wound is 100% soft necrosis.(L)2cm x (W)4.3cm. Non-blanching erythema with fluctuance. TMA R foot. Open surgical incision which extends well into plantar aspect is open. Base of wound has 90% slough,10% alyssa with rolled edges.(L)2cm x (W)13.5cm. Second full thickness ulcer Plantar R foot that is in close proximity to surgical wound . Base of wound has 100% yellow slough . Borders are macerated. Small amt purulent exudate noted. Tx.Plan: Cleanse Sacral wound with Saline. Apply Moisture Barrier Paste.Cover with Optifoam drsg. Change every 3 days and prn. Please follow-up with PCP regarding wound consult and wound care orders for R foot. Reposition at least every 2hours or as tolerated. Off-load heels with pillow. APM/CHRISTELLE mattress overlay.
[2019-10-30 19:05] LABS: HEMATOCRIT 28.7 % (37.0-47.0); HEMOGLOBIN 9.5 G/DL (12.0-16.0); MEAN CORPUSCULAR VOLUME 92 FL (80-99); PLATELET COUNT 155 K/UL (150-450); RED BLOOD COUNT 3.11 M/UL (4.20-5.40); RED CELL DISTRIBUTION WIDTH 17.1 % (11.6-14.8); WHITE BLOOD COUNT 9.2 K/UL (4.8-10.8)
--- NOTE | 2019-10-30 19:30 | NUR ---
NURSE NOTES: Received pt from Raheem Krishna RN. patient is observed in bed, eyes open, able to respond to verbal commands, denies pain at this time. pt's spouse is at bedside. pt is on 4 L O2 via NC, saturating at 92%. HOB elevated. fondant cooker shows SR at this time, with HR of 82. no acute cardiac distress noted. skin alterations noted. RAC 20 g IV site is patent and intact, asymptomatic. bed in lowest position and locked, siderails up X3, call light within reach. will continue to monitor.
--- NOTE | 2019-10-30 19:30 | History and Physical Report ---
DATE OF ADMISSION: 10/29/2019 HISTORY OF PRESENT ILLNESS: This is an elderly 64-year-old female came to the emergency room for having recurrent seizure, urinary tract infection, acute renal failure, hyperkalemia, sepsis, profound anemia, hypertension, elevated troponin, altered level of consciousness. MEDICATIONS: Allopurinol, vitamin C, Lipitor, carvedilol, clonidine, hydrochlorothiazide, hydrocodone, losartan, multivitamin, and zinc. ALLERGIES: NKA. FAMILY HISTORY: Noncontributory. SOCIAL HISTORY: Generalized weakness, had a seizure before coming to hospital. REVIEW OF SYSTEMS: The patient is feeling generalized weakness, tired, fatigue. PHYSICAL EXAMINATION: VITAL SIGNS: Blood pressure 170/70, pulse 78, no fever, respirations 18. HEENT: AT/NC. EOMI. PERRLA. NECK: Supple. No JVD. CHEST: Bilaterally clear CARDIOVASCULAR: Regular rhythm. ABDOMEN: Soft. Positive bowel sounds. EXTREMITIES: CCE. NEUROLOGICAL: The patient has generalized weakness. LABORATORY DATA: White count 7.5, hemoglobin 6.3, hematocrit 19, platelets are 163. Chemistry panel sodium 141, potassium 6, BUN 84, creatinine 5, glucose 198. Urine has positive blood TNTC, leukocyte esterase and wbc's. ASSESSMENT: 1. ALTERED MENTAL STATUS: 2. Possible seizure. 3. Chronic renal failure. 4. Anemia. 5. Hypertension. PLAN: 1. We will increase the losartan. 2. Consider Nephrology consult. 3. Continue medical treatment. 4. Increase losartan. 5. PT and OT. Mike Alvarado M.D. DR: Francisco JOB#: [id number] CC:
[2019-10-30 19:32] LABS: ANION GAP 13 mmol/L (5-15); BLOOD UREA NITROGEN 82 mg/dL (7-18); CALCIUM 8.4 MG/DL (8.5-10.1); CARBON DIOXIDE 18 MMOL/L (21-32); CHLORIDE 110 MMOL/L (98-107); CREATININE 4.8 MG/DL (0.55-1.30); POTASSIUM 4.3 MMOL/L (3.5-5.1); SODIUM 141 MMOL/L (136-145)
--- NOTE | 2019-10-30 19:32 | NUR ---
HAND-OFF: Report given to Alona Sierra RN,pt stable no dsistress presented during the shift spouse at bedside..
[2019-10-30] MEDS: Albuterol/Ipratropium 3ml neb HHN PRN (20:32)
--- NOTE | 2019-10-30 20:34 | NUR ---
NURSE NOTES: left message for Dr. Alvarado regarding pt's temp of 101.0. awaiting call back.
--- NOTE | 2019-10-30 20:35 | NUR ---
NURSE NOTES: Received call back from Dr. Alvarado regarding pt's elevated temp. will carry out new orders.
--- NOTE | 2019-10-30 20:40 | NUR ---
NURSE NOTES: called and left message for Dr. Miller regarding pt's elevated temp as per Dr. Alvarado's order. awaiting call back.
--- NOTE | 2019-10-30 20:47 | NUR ---
NURSE NOTES: Received call back from Dr. Miller. will carry out new orders.
[2019-10-30] MEDS: Atorvastatin 20mg tab ORAL SCH (21:02)
[2019-10-30] MEDS ORDERED: Piperacillin/Tazobactam 3.375 GM in NS 110 ML IVPB SCH (22:00)
[2019-10-30] MEDS: Piperacillin/Tazobactam 3.375 GM in NS 110 ML IVPB SCH (22:32)
[2019-10-31] VITALS: BP 153/65
[2019-10-31] MEDS: Albuterol/Ipratropium 3ml neb HHN PRN (01:19)
[2019-10-31 04:00] VITALS: BP 160/65
[2019-10-31 05:46] LABS: HEMATOCRIT 26.7 % (37.0-47.0); HEMOGLOBIN 8.9 G/DL (12.0-16.0); MEAN CORPUSCULAR VOLUME 93 FL (80-99); PLATELET COUNT 148 K/UL (150-450); RED BLOOD COUNT 2.88 M/UL (4.20-5.40); RED CELL DISTRIBUTION WIDTH 17.4 % (11.6-14.8); WHITE BLOOD COUNT 6.6 K/UL (4.8-10.8)
[2019-10-31 05:56] LABS: INR 1.1 (0.9-1.1)
[2019-10-31 06:49] LABS: ALANINE AMINOTRANSFERASE 820 U/L (12-78); ALBUMIN 1.9 G/DL (3.4-5.0); ALBUMIN/GLOBULIN RATIO 0.4 (1.0-2.7); ALKALINE PHOSPHATASE 212 U/L (46-116); ANION GAP 13 mmol/L (5-15); ASPARTATE AMINO TRANSFERASE 1100 U/L (15-37); BILIRUBIN,TOTAL 0.3 MG/DL (0.2-1.0); BLOOD UREA NITROGEN 81 mg/dL (7-18); CARBON DIOXIDE 17 MMOL/L (21-32); CHLORIDE 112 MMOL/L (98-107); CREATININE 4.8 MG/DL (0.55-1.30); FERRITIN 662 NG/ML (8-388); PHOSPHORUS 5.2 MG/DL (2.5-4.9); POTASSIUM 4.1 MMOL/L (3.5-5.1); SODIUM 142 MMOL/L (136-145)
[2019-10-31] MEDS ORDERED: Heparin1,000 units/500ml Premix(Conc:2 units/ml) ONE (07:00)
[2019-10-31] MEDS ORDERED: Lidocaine 1% Plain 30 ml INJ ONE (07:00)
--- NOTE | 2019-10-31 07:06 | NUR ---
NURSE NOTES: Received bedside report from Alona ESCAMILLA. Pt. in bed, sleeping but arousable. On venturi mask 12LPM at 15% Fi O2. Saturation at 90%. No grimacing noted. IV at right AC #20g. in placed SL. at bedside for support. Bed in low position, locked. Call light within reach. Will cont. to monitor.
[2019-10-31 07:49] LABS: % IRON SATURATION 17 % (15-50); IRON 17 ug/dL (50-175); TOTAL IRON BINDING CAPACITY 101 ug/dL (250-450)
--- NOTE | 2019-10-31 07:50 | NUR ---
HAND-OFF: Report given to ANDI Glover. pt is in stable condition.
[2019-10-31 08:00] VITALS: BP 154/69
--- NOTE | 2019-10-31 09:17 | NUR ---
NURSE NOTES: Called and spoke with Dr. Alvarado regarding pt. low O2 sat 86% on venturi mask 12L Fi O2 15%. RT switch pt. to non-rebreather mask at 100% at 15% and O2 sat went to 96-99%. Received order for STAT CXR and MD consult for Dr. Bower (pulmo) and Dr. Alvarado told RN pt. needs HD. Informed Dr. Alvarado that Dr. Guajardo (nephro) on board. Will cont. to monitor.
[2019-10-31] MEDS: Zinc Sulfate 220mg cap ORAL SCH (10:07)
[2019-10-31] MEDS: Ascorbic Acid 500mg tab ORAL SCH (10:07)
[2019-10-31] MEDS: Allopurinol 100mg Tab ORAL SCH (10:08)
[2019-10-31] MEDS: cloNIDine 0.2mg Tab ORAL SCH ×2 (10:08→18:00)
[2019-10-31] MEDS: Carvedilol 12.5mg tab ORAL SCH ×2 (10:09→21:30)
[2019-10-31] MEDS: Losartan 50mg tab ORAL SCH (10:09)
--- NOTE | 2019-10-31 11:16 | Cardiac Electrophysiology PN ---
Subjective Subjective [id number] Objective Last 24 Hour Vital Signs Date Time Temp Pulse Resp B/P (MAP) Pulse Ox O2 Delivery O2 Flow Rate FiO2 10/31/19 10:09 154/69 10/31/19 10:09 81 154/69 10/31/19 10:08 154/69 10/31/19 04:00 Nasal Cannula 4.0 10/31/19 04:00 99.2 72 24 160/65 (96) 92 10/31/19 04:00 74 10/31/19 01:19 75 17 97 Nasal Cannula 3.0 32 71 18 87 10/31/19 00:00 Nasal Cannula 4.0 10/31/19 00:00 100.8 72 24 153/65 (94) 97 10/30/19 21:02 81 183/73 10/30/19 20:38 96 Nasal Cannula 3.0 32 10/30/19 20:38 81 21 100 Nasal Cannula 3.0 32 78 22 97 10/30/19 20:37 79 23 99 Nasal Cannula 3.0 32 10/30/19 20:00 Nasal Cannula 4.0 10/30/19 20:00 83 10/30/19 20:00 101.0 82 24 183/73 (109) 92 10/30/19 18:55 168/69 10/30/19 16:09 99.4 78 20 168/69 (102) 92 10/30/19 16:00 75 10/30/19 16:00 Nasal Cannula 3.0 10/30/19 12:00 71 10/30/19 12:00 Nasal Cannula 3.0 10/30/19 11:50 98.7 72 20 170/84 (112) 92 Intake and Output 10/30/19 10/31/19 19:00 07:00 Intake Total 720 ml 650.0000 ml Balance 720 ml 650.0000 ml Intake Oral 720 ml 240 ml IV Total 410.0000 ml # Voids 3 1 # Bowel Movements 2 Laboratory Tests Test 10/30/19 19:00 10/31/19 04:20 10/31/19 10:20 White Blood Count 9.2 K/UL (4.8-10.8) 6.6 K/UL (4.8-10.8) Red Blood Count 3.11 M/UL (4.20-5.40) L 2.88 M/UL (4.20-5.40) L Hemoglobin 9.5 G/DL (12.0-16.0) #L 8.9 G/DL (12.0-16.0) L Hematocrit 28.7 % (37.0-47.0) #L 26.7 % (37.0-47.0) L Mean Corpuscular Volume 92 FL (80-99) 93 FL (80-99) Mean Corpuscular Hemoglobin 30.6 PG (27.0-31.0) 30.9 PG (27.0-31.0) Mean Corpuscular Hemoglobin Concent 33.2 G/DL (32.0-36.0) 33.3 G/DL (32.0-36.0) Red Cell Distribution Width 17.1 % (11.6-14.8) H 17.4 % (11.6-14.8) H Platelet Count 155 K/UL (150-450) 148 K/UL (150-450) L Mean Platelet Volume 8.2 FL (6.5-10.1) 7.7 FL (6.5-10.1) Neutrophils (%) (Auto) % (45.0-75.0) % (45.0-75.0) Lymphocytes (%) (Auto) % (20.0-45.0) % (20.0-45.0) Monocytes (%) (Auto) % (1.0-10.0) % (1.0-10.0) Eosinophils (%) (Auto) % (0.0-3.0) % (0.0-3.0) Basophils (%) (Auto) % (0.0-2.0) % (0.0-2.0) Differential Total Cells Counted 100 100 Neutrophils % (Manual) 88 % (45-75) H 82 % (45-75) H Lymphocytes % (Manual) 8 % (20-45) L 10 % (20-45) L Monocytes % (Manual) 4 % (1-10) 5 % (1-10) Eosinophils % (Manual) 0 % (0-3) 3 % (0-3) Basophils % (Manual) 0 % (0-2) 0 % (0-2) Band Neutrophils 0 % (0-8) 0 % (0-8) Platelet Estimate Adequate Decreased L Platelet Morphology Normal Normal Hypochromasia 1+ 2+ Anisocytosis 1+ 1+ Sodium Level 141 MMOL/L (136-145) 142 MMOL/L (136-145) Potassium Level 4.3 MMOL/L (3.5-5.1) 4.1 MMOL/L (3.5-5.1) Chloride Level 110 MMOL/L (98-107) H 112 MMOL/L (98-107) H Carbon Dioxide Level 18 MMOL/L (21-32) L 17 MMOL/L (21-32) L Anion Gap 13 mmol/L (5-15) 13 mmol/L (5-15) Blood Urea Nitrogen 82 mg/dL (7-18) H 81 mg/dL (7-18) H Creatinine 4.8 MG/DL (0.55-1.30) H 4.8 MG/DL (0.55-1.30) H Estimat Glomerular Filtration Rate 11.2 mL/min (>60) 11.2 mL/min (>60) Glucose Level 311 MG/DL (74-106) #H 244 MG/DL (74-106) H Calcium Level 8.4 MG/DL (8.5-10.1) L 8.0 MG/DL (8.5-10.1) L Spherocytes 1+ Reticulocyte Count 2.0 % (0.5-2.0) Prothrombin Time 11.6 SEC (9.30-11.50) H Prothromb Time International Ratio 1.1 (0.9-1.1) Activated Partial Thromboplast Time 37 SEC (23-33) H Phosphorus Level 5.2 MG/DL (2.5-4.9) H Magnesium Level 1.7 MG/DL (1.8-2.4) L Iron Level 17 ug/dL (50-175) L Total Iron Binding Capacity 101 ug/dL (250-450) L Percent Iron Saturation 17 % (15-50) Unsaturated Iron Binding 84 ug/dL (112-346) L Ferritin 662 NG/ML (8-388) H Total Bilirubin 0.3 MG/DL (0.2-1.0) Aspartate Amino Transf (AST/SGOT) 1100 U/L (15-37) H Alanine Aminotransferase (ALT/SGPT) 820 U/L (12-78) H Alkaline Phosphatase 212 U/L (46-116) H Total Protein 6.7 G/DL (6.4-8.2) Albumin 1.9 G/DL (3.4-5.0) L Globulin 4.8 g/dL Albumin/Globulin Ratio 0.4 (1.0-2.7) L Vitamin B12 Level > 2000 PG/ML (193-986) H Folate 22.8 NG/ML (8.6-58.9) Thyroid Stimulating Hormone (TSH) 1.272 uiU/mL (0.358-3.740) Free Thyroxine 1.04 NG/DL (0.76-1.46) Arterial Blood pH 7.281 (7.350-7.450) Arterial Blood Partial Pressure CO2 38.8 mmHg (35.0-45.0) Arterial Blood Partial Pressure O2 75.4 mmHg (75.0-100.0) Arterial Blood HCO3 17.9 mmol/L (22.0-26.0) *L Arterial Blood Oxygen Saturation 94.1 % (95-100) L Arterial Blood Base Excess -8.2 (-2-2) L Karan Test Positive Microbiology Date/Time Source Procedure Growth Status 10/29/19 19:50 Blood Blood Culture - Preliminary NO GROWTH AFTER 24 HOURS Resulted 10/29/19 19:35 Blood Blood Culture - Preliminary NO GROWTH AFTER 24 HOURS Resulted 10/29/19 19:40 Nasal Nares - Final Complete 10/29/19 19:40 Nasal Nares - Final Complete 10/29/19 21:20 Urine,Clean Catch Urine Culture - Preliminary Gram Negative Bacillus 1 Resulted Henry Fuentes MD Oct 31, 2019 11:16
[2019-10-31] MEDS: Piperacillin/Tazobactam 3.375 GM in NS 110 ML IVPB SCH ×2 (11:40→23:07)
--- NOTE | 2019-10-31 11:42 | NUR ---
RADIOLOGY DEPT., CHEST X-RAY DONE.-P.DYE
--- NOTE | 2019-10-31 11:55 | NUR ---
NURSE NOTES: Called and left message to Dr. Fuentes regarding Troponin result of 2.227 awaiting for response.
[2019-10-31 12:00] VITALS: BP 158/71
--- NOTE | 2019-10-31 12:10 | NUR ---
NURSE NOTES: Dr. Fuentes called back with NNO since its trending down from Troponin 3.385 now at 2.227.
--- NOTE | 2019-10-31 13:12 | GI Progress Note ---
Assessment/Plan Problems: (1) Shock liver ICD Codes: K72.00 - Acute and subacute hepatic failure without coma SNOMED: 636782314 (2) Elevated troponin ICD Codes: R79.89 - Other specified abnormal findings of blood chemistry SNOMED: 272952638, 232122787, 975529795 (3) Profound anemia ICD Codes: D64.9 - Anemia, unspecified SNOMED: 434392763, 528775055, 668850678 Qualifiers: Qualified Codes: D64.9 - Anemia, unspecified Status: unchanged Status Narrative Discussed with Dr. Toribio. Assessment/Plan Patient will need endoscopy and colonoscopy to evaluate anemia at some point, but will require cardiac clearance given elevated troponin levels. Monitor H&H, as needed transfusions >> patient status post 2 units of packed RBCs sudden spike in LFTs most likely 2/2 to shock liver, trend LFTs Occult blood stool to evaluate GI bleed Anemia work-up fu cardio and nephro recommendations Electrolyte correction PPI we will follow along on a daily basis with any additional recommendations The patient was seen and examined at bedside and all new and available data was reviewed in the patients chart. I agree with the above findings, impression and plan. (Patient seen earlier today. Signature stamp does not reflect patient encounter time.). - Davi Toribio MD Subjective Subjective limited Objective Last 24 Hour Vital Signs Date Time Temp Pulse Resp B/P (MAP) Pulse Ox O2 Delivery O2 Flow Rate FiO2 10/31/19 10:09 154/69 10/31/19 10:09 81 154/69 10/31/19 10:08 154/69 10/31/19 08:00 100.4 81 23 154/69 (97) 96 10/31/19 08:00 Nasal Cannula 4.0 10/31/19 07:44 72 10/31/19 04:00 Nasal Cannula 4.0 10/31/19 04:00 99.2 72 24 160/65 (96) 92 10/31/19 04:00 74 10/31/19 01:19 75 17 97 Nasal Cannula 3.0 32 71 18 87 10/31/19 00:00 Nasal Cannula 4.0 10/31/19 00:00 100.8 72 24 153/65 (94) 97 10/30/19 21:02 81 183/73 1/27/20 20:38 96 Nasal Cannula 3.0 32 10/30/19 20:38 81 21 100 Nasal Cannula 3.0 32 78 22 97 10/30/19 20:37 79 23 99 Nasal Cannula 3.0 32 10/30/19 20:00 Nasal Cannula 4.0 10/30/19 20:00 83 10/30/19 20:00 101.0 82 24 183/73 (109) 92 10/30/19 18:55 168/69 10/30/19 16:09 99.4 78 20 168/69 (102) 92 10/30/19 16:00 75 10/30/19 16:00 Nasal Cannula 3.0 Intake and Output 10/30/19 10/31/19 19:00 07:00 Intake Total 720 ml 650.0000 ml Balance 720 ml 650.0000 ml Intake Oral 720 ml 240 ml IV Total 410.0000 ml # Voids 3 1 # Bowel Movements 2 Laboratory Tests Test 10/30/19 19:00 10/31/19 04:20 10/31/19 10:20 White Blood Count 9.2 K/UL (4.8-10.8) 6.6 K/UL (4.8-10.8) Red Blood Count 3.11 M/UL (4.20-5.40) L 2.88 M/UL (4.20-5.40) L Hemoglobin 9.5 G/DL (12.0-16.0) #L 8.9 G/DL (12.0-16.0) L Hematocrit 28.7 % (37.0-47.0) #L 26.7 % (37.0-47.0) L Mean Corpuscular Volume 92 FL (80-99) 93 FL (80-99) Mean Corpuscular Hemoglobin 30.6 PG (27.0-31.0) 30.9 PG (27.0-31.0) Mean Corpuscular Hemoglobin Concent 33.2 G/DL (32.0-36.0) 33.3 G/DL (32.0-36.0) Red Cell Distribution Width 17.1 % (11.6-14.8) H 17.4 % (11.6-14.8) H Platelet Count 155 K/UL (150-450) 148 K/UL (150-450) L Mean Platelet Volume 8.2 FL (6.5-10.1) 7.7 FL (6.5-10.1) Neutrophils (%) (Auto) % (45.0-75.0) % (45.0-75.0) Lymphocytes (%) (Auto) % (20.0-45.0) % (20.0-45.0) Monocytes (%) (Auto) % (1.0-10.0) % (1.0-10.0) Eosinophils (%) (Auto) % (0.0-3.0) % (0.0-3.0) Basophils (%) (Auto) % (0.0-2.0) % (0.0-2.0) Differential Total Cells Counted 100 100 Neutrophils % (Manual) 88 % (45-75) H 82 % (45-75) H Lymphocytes % (Manual) 8 % (20-45) L 10 % (20-45) L Monocytes % (Manual) 4 % (1-10) 5 % (1-10) Eosinophils % (Manual) 0 % (0-3) 3 % (0-3) Basophils % (Manual) 0 % (0-2) 0 % (0-2) Band Neutrophils 0 % (0-8) 0 % (0-8) Platelet Estimate Adequate Decreased L Platelet Morphology Normal Normal Hypochromasia 1+ 2+ Anisocytosis 1+ 1+ Sodium Level 141 MMOL/L (136-145) 142 MMOL/L (136-145) Potassium Level 4.3 MMOL/L (3.5-5.1) 4.1 MMOL/L (3.5-5.1) Chloride Level 110 MMOL/L (98-107) H 112 MMOL/L (98-107) H Carbon Dioxide Level 18 MMOL/L (21-32) L 17 MMOL/L (21-32) L Anion Gap 13 mmol/L (5-15) 13 mmol/L (5-15) Blood Urea Nitrogen 82 mg/dL (7-18) H 81 mg/dL (7-18) H Creatinine 4.8 MG/DL (0.55-1.30) H 4.8 MG/DL (0.55-1.30) H Estimat Glomerular Filtration Rate 11.2 mL/min (>60) 11.2 mL/min (>60) Glucose Level 311 MG/DL (74-106) #H 244 MG/DL (74-106) H Calcium Level 8.4 MG/DL (8.5-10.1) L 8.0 MG/DL (8.5-10.1) L Spherocytes 1+ Reticulocyte Count 2.0 % (0.5-2.0) Prothrombin Time 11.6 SEC (9.30-11.50) H Prothromb Time International Ratio 1.1 (0.9-1.1) Activated Partial Thromboplast Time 37 SEC (23-33) H Phosphorus Level 5.2 MG/DL (2.5-4.9) H Magnesium Level 1.7 MG/DL (1.8-2.4) L Iron Level 17 ug/dL (50-175) L Total Iron Binding Capacity 101 ug/dL (250-450) L Percent Iron Saturation 17 % (15-50) Unsaturated Iron Binding 84 ug/dL (112-346) L Ferritin 662 NG/ML (8-388) H Total Bilirubin 0.3 MG/DL (0.2-1.0) Aspartate Amino Transf (AST/SGOT) 1100 U/L (15-37) H Alanine Aminotransferase (ALT/SGPT) 820 U/L (12-78) H Alkaline Phosphatase 212 U/L (46-116) H Troponin I 2.227 ng/mL (0.000-0.056) Total Protein 6.7 G/DL (6.4-8.2) Albumin 1.9 G/DL (3.4-5.0) L Globulin 4.8 g/dL Albumin/Globulin Ratio 0.4 (1.0-2.7) L Vitamin B12 Level > 2000 PG/ML (193-986) H Folate 22.8 NG/ML (8.6-58.9) Thyroid Stimulating Hormone (TSH) 1.272 uiU/mL (0.358-3.740) Free Thyroxine 1.04 NG/DL (0.76-1.46) Arterial Blood pH 7.281 (7.350-7.450) Arterial Blood Partial Pressure CO2 38.8 mmHg (35.0-45.0) Arterial Blood Partial Pressure O2 75.4 mmHg (75.0-100.0) Arterial Blood HCO3 17.9 mmol/L (22.0-26.0) *L Arterial Blood Oxygen Saturation 94.1 % (95-100) L Arterial Blood Base Excess -8.2 (-2-2) L Karan Test Positive Height (Feet): 5 Height (Inches): 4.00 Weight (Pounds): 175 General Appearance: WD/WN, no apparent distress, alert Cardiovascular: normal rate Respiratory/Chest: normal breath sounds, no respiratory distress Abdominal Exam: normal bowel sounds, non tender, soft Extremities: non-tender Gato Herring NP Oct 31, 2019 13:12
--- NOTE | 2019-10-31 13:25 | Diagnostic Imaging Report ---
Indication: Dyspnea Technique: One view of the chest Comparison: 10/29/2019 Findings: Interim marked worsening of bilateral interstitial and mostly airspace infiltrates versus edema. There is probably some fluid within the minor fissure on the right versus perihilar atelectasis. Granulomas calcified lymph nodes are seen in the right hilum and right paratracheal region.. The heart remains enlarged. Impression: Interim marked worsening of bilateral airspace and interstitial infiltrates versus edema, over 2 days Possible fluid within the minor fissure versus perihilar atelectasis Evidence of old granulomatous disease
--- NOTE | 2019-10-31 14:10 | NUR ---
NURSE NOTES: Seen by Dr. Guajardo and order stat dialysis cath non-tunnel placement. Called radiology and spoke with Russell regarding stat order.
--- NOTE | 2019-10-31 14:26 | General Progress Note ---
Progress Note Progress Note [id number] full note dictated Waleska Pyle MD Oct 31, 2019 14:26
[2019-10-31 16:00] VITALS: BP 151/71
--- NOTE | 2019-10-31 16:06 | NUR ---
NURSE NOTES: S/P dialysis catheter placement at right side of neck. No bleeding noted at the site. Will cont. to monitor.
--- NOTE | 2019-10-31 16:18 | NUR ---
RADIOLOGY NOTE: RIJ NON-TUNNELED DIALYSIS CATHETER PLACEMENT BY DR. KULWINDER CANDELARIA. FA
--- NOTE | 2019-10-31 16:35 | Diagnostic Imaging Report ---
Indication: Acute renal failure Technique: Procedure performed at bedside. Procedural timeout performed. Total sterile technique, including sterile probe cover and sterile gel, sterile gloves, hand hygiene, hat, mask, sterile gown, large sterile drape, and preparation with 2% chlorhexidine utilized. Local anesthesia with 1% lidocaine. Under real-time ultrasound guidance, puncture right internal jugular vein using 21-gauge needle, passage 0.018 guidewire, insertion 4 Tristanian micropuncture introducer, passage 0.035 guidewire, over which was passed serial dilators and then a 13 Tristanian 15 cm triple-lumen temporary dialysis catheter. Guidewire was removed. Catheter ports were aspirated and flushed. The catheter was fixed to the skin. Patient tolerated procedure well. A chest x-ray was obtained, documents catheter tip position at the cavoatrial junction. Comparison: none Findings: As above. No postprocedure pneumothorax demonstrated Impression: Successful bedside placement of right transjugular temporary dialysis catheter, as described.
[2019-10-31] MEDS: Renvela 800mg Pkt ORAL SCH (18:00)
--- NOTE | 2019-10-31 18:00 | Consultation ---
DATE OF CONSULTATION: 10/31/2019 PULMONARY CONSULTATION CONSULTING PHYSICIAN: Faraz Bower M.D. REFERRING PHYSICIAN: Jake Alvarado M.D. HISTORY OF PRESENT ILLNESS: This is a 64-year-old female, who was brought to the hospital with a history of altered mental status. She also was running a fever, the patient history. In the ER, she was seen to have acute renal failure and metabolic acidosis. She has also been hypoxic and currently is on non-rebreather mask. The patient underwent a CT of the brain, which showed chronic small vessel disease. She was found to have hyperkalemia as well as UTI, she is on antibiotics. MRI of brain showed a questionable lacunar infarct, this was obtained previously. PAST MEDICAL HISTORY: Notable for CKD, hypertension, diabetes mellitus, previous CVA. SOCIAL HISTORY: Lives at home with family. History of alcohol and tobacco usage. REVIEW OF SYSTEMS: Unreliable. PHYSICAL EXAMINATION: GENERAL: Reveals a obese female. VITAL SIGNS: Blood pressure is 150/60, heart rate 84, respirations 20, she is afebrile, O2 saturation 92% on non-rebreather mask. HEENT: Unremarkable. CHEST: Shows bilateral rhonchi. ABDOMEN: Soft. EXTREMITIES: There is 1+ edema. LABORATORY DATA: Lab testing shows hemoglobin 8.9, platelet count is normal. Chemistry is notable for creatinine 4.8, BUN 81, bicarb of 17. AST is 1100, ALT is 820, alkaline phosphatase 212. Coags, INR 1.1. Urinalysis shows too numerous to count wbc's. IMPRESSION: 1. Pulmonary edema with infiltrate/mass in the right upper lobe. 2. UTI. 3. Acute renal failure. 4. Hypoxemia. 5. Respiratory failure. 6. Anemia. DISCUSSION: The patient is critically ill. Agree with need for dialysis. Agree with diuretics, Peña, and broad-spectrum antibiotics. Home medications to be continued. 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 on BiPAP. Faraz Bower M.D. DR: SAROJ JOB#: [id number] CC:
--- NOTE | 2019-10-31 18:00 | Consultation ---
DATE OF CONSULTATION: 10/31/2019 CARDIOLOGY CONSULTATION CONSULTING PHYSICIAN: Henry Fuentes M.D. REFERRING PHYSICIAN: Jake Alvarado M.D. REASON FOR CONSULTATION: Management of hypertension. HISTORY OF PRESENT ILLNESS: The patient is a 64-year-old lady with history of hypertension, peripheral vascular disease who was brought to the hospital from [facility] for altered level of consciousness. The patient also has had history of anemia and received blood transfusion in the past. The patient had lacunar infarct in July 2019 at [facility]. The patient also was found to have hemoglobin only 6.2 and was evaluated by GI. At the time of my evaluation, the patient denies any chest pain or shortness of breath. REVIEW OF SYSTEMS: Negative other than what is mentioned in the history of present illness. PAST MEDICAL HISTORY: As mentioned above. FAMILY HISTORY: Noncontributory. SOCIAL HISTORY: She lives in [facility]. Does not smoke or drink alcohol. MEDICATIONS: Per reconciliation. PHYSICAL EXAMINATION: VITAL SIGNS: Show blood pressure of 183/76, currently 124/69, pulse 81, respirations 18, temperature 100.8. HEAD AND NECK: Showed no JVD. LUNGS: Clear. CARDIOVASCULAR: Regular S1 and S2 with no gallop or murmur. ABDOMEN: Soft. EXTREMITIES: No pitting edema. Status post right toe amputation. LABORATORY AND DIAGNOSTIC DATA: EKG showed sinus rhythm with no acute ST-T wave abnormality. ischemia. Labs show white count of 6.6, hemoglobin was 6.2 decreased to 8.9, hematocrit of 26.7, platelet count 148. Sodium 142, potassium 4.1, BUN of 82, creatinine of 4.8, and glucose of 311. Troponin is elevated at 3.385. BNP of more than 35,000. ASSESSMENT AND PLAN: 1. Non-ST elevation myocardial infarction with elevated troponin of 3.38. The patient however has renal failure. The EKG also showed inferolateral T-wave inversion. The patient however does not have any chest pain. Continue Coreg at 12.5 mg b.i.d. and Lipitor 40 mg daily. Add Imdur 20 mg daily. Repeat the troponin and echocardiogram in the morning for further evaluation. 2. Hypertension. The patient is also on Lasix 40 mg IV daily as well as Cozaar 100 mg daily in addition to Coreg 12.5 mg b.i.d. and clonidine 0.2 b.i.d. 3. Chronic kidney disease. 4. Severe anemia with hemoglobin of 6.5. The patient will need EGD and colonoscopy; however, she should stabilize from cardiac perspective first. Repeat the EKG and echocardiogram for further evaluation. Thank you very much for allowing me to participate in the care of this patient. Please do not hesitate to contact me for any questions regarding my evaluation. Henry Fuentes M.D. DR: MERLYN JOB#: [id number] CC:
--- NOTE | 2019-10-31 19:10 | NUR ---
NURSE NOTES: Received pt from ANDI Glover. pt is observed resting in bed, currently receiving HD. pt is AO X3, denies pain at this time. F/C is patent and intact, draining to gravity. no s/sx of respiratory distress noted. engine monitor shows SR with HR of 80; no acute cardiac distress noted. skin alterations noted. RAC 20 g is patent and intact, asymptomatic. non-tunneled double lumen catheter noted for HD access. bed in lowest position and locked, siderails up X3, call light within reach. will continue to monitor.
--- NOTE | 2019-10-31 19:37 | NUR ---
HAND-OFF: Report given to Alona ESCAMILLA. Pt. remain stable.
[2019-10-31 20:00] VITALS: BP 173/54
--- NOTE | 2019-10-31 20:45 | Progress Note ---
DATE: 10/31/2019 SUBJECTIVE: This is elderly female, who came to the emergency room for UTI, fever, chills, and was found to have possible aspiration pneumonia. The patient has been short of breath since yesterday, was found to have fluid overload and BUN and creatinine went up. The patient denies any fever or chills. States she is on non-rebreathing mask 15 L. is at bedside and recommended hemodialysis, he has been talking to and going to decide in 10 to 15 minutes. OBJECTIVE: VITAL SIGNS: Blood pressure is 158/71, pulse 75, respirations 20, temp is 98.6. HEENT: Eyes are open. NECK: Supple. CHEST: Bilateral few crackles. CARDIOVASCULAR: Regular rhythm. No gallop. No murmur. ABDOMEN: Soft. Positive bowel sounds. Nontender. EXTREMITIES: Trace edema. GENITOURINARY: Deferred. LABORATORY DATA: White count 6.6, hemoglobin 8.9, hematocrit 27, platelets are 148,000. Chemistry panel, BUN 81, creatinine 4.8, glucose 244, and troponin is 2.327. ASSESSMENT: 1. Anemia, is improved after transfusion. 2. Acute renal failure. 3. Fluid overload. 4. CHF. PLAN: The patient needs dialysis. Continue to discussed with who was on bedside. Also, given dose of Lasix to increase urine output. The patient continue losartan. Continue Lipitor. Continue Keppra. Continue Zosyn. Discontinue IV fluid and continue oxygen and bronchodilator treatment. Pulmonary, Nephro is on consult. Consider Cardiology consult. Mike Alvarado M.D. DR: NICHO JOB#: [id number] CC:
[2019-10-31] MEDS ORDERED: Iron Sucrose 100 MG in NS 55 ML IV SCH (21:00)
--- NOTE | 2019-10-31 21:15 | Consultation ---
DATE OF CONSULTATION: 10/31/2019 NEPHROLOGY CONSULTATION CONSULTING PHYSICIAN: Waleska Pyle M.D. REFERRING PHYSICIAN: Jake Alvarado M.D. REASON FOR CONSULTATION: Fluid overload, end-stage renal disease, and need for dialysis. HISTORY OF PRESENT ILLNESS: The patient is an unfortunate 64-year-old female with past medical history significant for history of chronic kidney disease, diabetes, hypertension, peripheral vascular disease, history of dyslipidemia, history of hypertension who was brought in for altered mental status. Apparently, the patient had 2 episodes of seizure at intermediate. She was brought in, in the ER found to have an acute renal failure, fluid overload, acidotic, and respiratory distress. She was placed on nonrebreather mask. The patient found to have a hemoglobin of 6 and hematocrit of 19. BUN and creatinine also found to be 81 and 4.5. The patient consequently admitted in the hospital. I was called for management of renal disease and electrolyte imbalance. PAST MEDICAL HISTORY: 1. History of hypertension. 2. History of dyslipidemia. 3. History of chronic kidney disease, baseline creatinine is unknown. 4. History of gout. 5. History of dyslipidemia. 6. History of peripheral vascular disease, status post right toe amputation. HOME MEDICATIONS: Includin. Zinc sulfide 220 mg daily. 2. Clonidine 0.2 mg p.r.n. blood pressure more than 160. 3. Carvedilol 12.5 mg daily. 4. Atorvastatin 40 mg daily. 5. Allopurinol 100 mg daily. 6. Ascorbic acid 500 mg daily. 7. Vicodin 1 tablet p.o. p.r.n. 8. MVI 1 tablet p.o. daily. 9. Losartan 50 mg daily. ALLERGIES: No known drug allergies. REVIEW OF SYSTEMS: The patient is at this on non-rebreather mask and seems to be altered, but the is sitting next to the bed and basically providing all the history for me including history of chronic kidney disease, seizure, and all the other symptoms that is mentioned in history of present illness.GENERAL: He said that the patient is being more weak than her normal. There was no fever or chills. PULMONARY: Shortness of breath. No cough. No sputum. CARDIOVASCULAR: Has orthopnea, PND, and leg swelling. GASTROINTESTINAL: Has decreased appetite. GENITOURINARY: No dysuria. No frequency. No hematuria. MUSCULOSKELETAL: No weakness or numbness. SOCIAL HISTORY: There is no current history of tobacco, alcohol, or drug use. PHYSICAL EXAMINATION: VITAL SIGNS: The patient had temperature of 102, blood pressure 173/63, pulse rate of 93, respiratory rate of 18. HEAD AND NECK: No JVP. No LAD. No thyromegaly. Extraocular movements intact. Pupils are reactive to light and accommodation. LUNGS: Bilateral crackles and diffuse wheezing. CARDIAC: Regular rate and rhythm. S1-S2 tachy. No murmur. No rub. ABDOMEN: Soft, nontender, nondistended. EXTREMITIES: Status post toe amputation and has 2+ edema. No clubbing. No cyanosis. LABORATORY VALUES: The patient had WBC count of 6.6, hemoglobin of 8.9, hematocrit of 26, and platelet count of 148. Chemistry revealed sodium of 142, potassium 4.2, chloride 112, bicarb 17, BUN is 82, creatinine is 4.8, glucose of 244, calcium of 8, phosphorus of 5.2, magnesium of 1.7. Iron of 17 and saturation of 17. AST 1100, ALT of 820, alkaline phosphatase of 212. Troponin is 2.227. Total protein of 6.7, albumin of 1.7. UA revealed specific gravity of 1.015, protein 4+, glucose 1+ wbc too many to count, rbc too many to count. ASSESSMENT: 1. Acute on chronic renal failure and acute acidosis. 2. Respiratory failure. 3. Shock liver. 4. Hypomagnesemia. 5. Hyperphosphatemia. 6. Hypocalcemia. 7. Non ST-elevation [place]. 8. Fluid overload. PLAN: Plan for the patient to obtain a random urine protein creatinine ratio to calculate the proteinuria. Start the patient on Lasix, Peña catheter. Spoke to the and the family member in detail regarding the urgent need of dialysis. Rescheduled the patient for dialysis. IV iron. Start the patient on Renagel for hyperphosphatemia. Cardiology consultation. Consider GI consult for shock liver. Again, I would like to thank Dr. Alvarado for allowing me to participate in the care of this patient. Waleska Pyle M.D. DR: LIOR JOB#: [id number] CC:
[2019-10-31] MEDS: Atorvastatin 20mg tab ORAL SCH (21:31)
--- NOTE | 2019-10-31 21:50 | NUR ---
NURSE NOTES: pt began to exhibit s/sx of confusion. HD nurse stopped HD at this time. will continue to monitor pt.
--- NOTE | 2019-10-31 22:32 | Infectious Diseases Prog Note ---
Assessment/Plan Assessment/Plan Full consult dictated: A) 1) sepsis, gram neg uti/pyelonephritis, right foot wound - ? infected, ? osteomyelitis, elevated lft's, sob, renal failure, fevers 2) pmh noted 3) allergies - nkda P) 1) zosyn and zyvox 2) check cultures, x-rays, us, labs 3) consider podiatry evaluation of right foot 4) GI and pulmonary f/u 5) thank you Subjective Allergies: Coded Allergies: No Known Allergies (Unverified , 08/03/19) Objective Vital Signs Last 24 Hour Vital Signs Date Time Temp Pulse Resp B/P (MAP) Pulse Ox O2 Delivery O2 Flow Rate FiO2 10/31/19 21:30 79 173/54 10/31/19 20:14 96 Nasal Cannula 3.0 32 10/31/19 20:14 79 22 96 Nasal Cannula 3.0 32 10/31/19 20:00 99.1 78 24 173/54 (93) 96 10/31/19 20:00 76 10/31/19 18:00 151/71 10/31/19 16:00 Nasal Cannula 4.0 10/31/19 16:00 98.2 72 25 151/71 (97) 93 10/31/19 15:28 71 10/31/19 12:00 Nasal Cannula 4.0 10/31/19 12:00 98.6 75 24 158/71 (100) 96 10/31/19 11:46 74 10/31/19 10:09 154/69 10/31/19 10:09 81 154/69 10/31/19 10:08 154/69 10/31/19 08:00 100.4 81 23 154/69 (97) 96 10/31/19 08:00 Nasal Cannula 4.0 10/31/19 07:44 72 10/31/19 04:00 Nasal Cannula 4.0 10/31/19 04:00 99.2 72 24 160/65 (96) 92 10/31/19 04:00 74 10/31/19 01:19 75 17 97 Nasal Cannula 3.0 32 71 18 87 10/31/19 00:00 Nasal Cannula 4.0 10/31/19 00:00 100.8 72 24 153/65 (94) 97 Height (Feet): 5 Height (Inches): 4.00 Weight (Pounds): 175 Microbiology Date/Time Source Procedure Growth Status 10/29/19 19:50 Blood Blood Culture - Preliminary NO GROWTH AFTER 24 HOURS Resulted 10/29/19 19:35 Blood Blood Culture - Preliminary NO GROWTH AFTER 24 HOURS Resulted 10/29/19 19:40 Nasal Nares - Final Complete 10/29/19 19:40 Nasal Nares - Final Complete 10/29/19 21:20 Urine,Clean Catch Urine Culture - Preliminary Gram Negative Bacillus 1 Resulted Laboratory Tests Test 10/31/19 04:20 10/31/19 10:20 10/31/19 18:45 White Blood Count 6.6 K/UL (4.8-10.8) Red Blood Count 2.88 M/UL (4.20-5.40) L Hemoglobin 8.9 G/DL (12.0-16.0) L Hematocrit 26.7 % (37.0-47.0) L Mean Corpuscular Volume 93 FL (80-99) Mean Corpuscular Hemoglobin 30.9 PG (27.0-31.0) Mean Corpuscular Hemoglobin Concent 33.3 G/DL (32.0-36.0) Red Cell Distribution Width 17.4 % (11.6-14.8) H Platelet Count 148 K/UL (150-450) L Mean Platelet Volume 7.7 FL (6.5-10.1) Neutrophils (%) (Auto) % (45.0-75.0) Lymphocytes (%) (Auto) % (20.0-45.0) Monocytes (%) (Auto) % (1.0-10.0) Eosinophils (%) (Auto) % (0.0-3.0) Basophils (%) (Auto) % (0.0-2.0) Differential Total Cells Counted 100 Neutrophils % (Manual) 82 % (45-75) H Lymphocytes % (Manual) 10 % (20-45) L Monocytes % (Manual) 5 % (1-10) Eosinophils % (Manual) 3 % (0-3) Basophils % (Manual) 0 % (0-2) Band Neutrophils 0 % (0-8) Platelet Estimate Decreased L Platelet Morphology Normal Hypochromasia 2+ Anisocytosis 1+ Spherocytes 1+ Reticulocyte Count 2.0 % (0.5-2.0) Prothrombin Time 11.6 SEC (9.30-11.50) H Prothromb Time International Ratio 1.1 (0.9-1.1) Activated Partial Thromboplast Time 37 SEC (23-33) H Sodium Level 142 MMOL/L (136-145) Potassium Level 4.1 MMOL/L (3.5-5.1) Chloride Level 112 MMOL/L (98-107) H Carbon Dioxide Level 17 MMOL/L (21-32) L Anion Gap 13 mmol/L (5-15) Blood Urea Nitrogen 81 mg/dL (7-18) H Creatinine 4.8 MG/DL (0.55-1.30) H Estimat Glomerular Filtration Rate 11.2 mL/min (>60) Glucose Level 244 MG/DL (74-106) H Calcium Level 8.0 MG/DL (8.5-10.1) L Phosphorus Level 5.2 MG/DL (2.5-4.9) H Magnesium Level 1.7 MG/DL (1.8-2.4) L Iron Level 17 ug/dL (50-175) L Total Iron Binding Capacity 101 ug/dL (250-450) L Percent Iron Saturation 17 % (15-50) Unsaturated Iron Binding 84 ug/dL (112-346) L Ferritin 662 NG/ML (8-388) H Total Bilirubin 0.3 MG/DL (0.2-1.0) Aspartate Amino Transf (AST/SGOT) 1100 U/L (15-37) H Alanine Aminotransferase (ALT/SGPT) 820 U/L (12-78) H Alkaline Phosphatase 212 U/L (46-116) H Troponin I 2.227 ng/mL (0.000-0.056) 1.811 ng/mL (0.000-0.056) Total Protein 6.7 G/DL (6.4-8.2) Albumin 1.9 G/DL (3.4-5.0) L Globulin 4.8 g/dL Albumin/Globulin Ratio 0.4 (1.0-2.7) L Vitamin B12 Level > 2000 PG/ML (193-986) H Folate 22.8 NG/ML (8.6-58.9) Thyroid Stimulating Hormone (TSH) 1.272 uiU/mL (0.358-3.740) Free Thyroxine 1.04 NG/DL (0.76-1.46) Arterial Blood pH 7.281 (7.350-7.450) Arterial Blood Partial Pressure CO2 38.8 mmHg (35.0-45.0) Arterial Blood Partial Pressure O2 75.4 mmHg (75.0-100.0) Arterial Blood HCO3 17.9 mmol/L (22.0-26.0) *L Arterial Blood Oxygen Saturation 94.1 % (95-100) L Arterial Blood Base Excess -8.2 (-2-2) L Karan Test Positive Hepatitis B Surface Antigen Pending Current Medications Medications (Trade) Dose Ordered Sig/Cb Route PRN Reason Start Time Stop Time Status Last Admin Dose Admin Acetaminophen/ Hydrocodone Bitart ([place] 5/325) 1 tab Q6H PRN ORAL For Pain 10/30/19 02:30 11/06/19 02:29 10/30/19 23:09 Albuterol/ Ipratropium (Albuterol/ Ipratropium) 3 ml Q4HRT PRN HHN Shortness of Breath 10/30/19 18:45 11/04/19 18:44 10/31/19 01:19 Allopurinol (Zyloprim) 100 mg DAILY ORAL 10/30/19 09:00 11/29/19 08:59 10/31/19 10:08 Ascorbic Acid (Vitamin C) 500 mg DAILY ORAL 10/30/19 09:00 11/29/19 08:59 10/31/19 10:07 Atorvastatin Calcium (Lipitor) 40 mg BEDTIME ORAL 10/30/19 21:00 11/29/19 20:59 10/31/19 21:31 Carvedilol (Coreg) 12.5 mg EVERY 12 HOURS ORAL 10/30/19 09:00 11/29/19 08:59 10/31/19 21:30 Clonidine HCl (Catapres tab) 0.2 mg BID ORAL 10/30/19 09:00 11/29/19 08:59 10/31/19 10:08 Epoetin Julio (Epoetin Julio(ESRD on dialysis)) 10,000 unit WED-WED-WED SUBQ 11/01/19 21:00 12/01/19 20:59 Iron Sucrose 100 mg/Sodium Chloride 60 ml @ 240 mls/hr BEDTIME IV 10/31/19 21:00 11/04/19 21:14 10/31/19 22:14 Levetiracetam (Keppra) 500 mg Q12HR ORAL 10/30/19 21:00 11/29/19 20:59 10/31/19 21:30 Linezolid 300 ml @ 300 mls/hr Q12HR IVPB 10/30/19 21:00 11/06/19 20:59 10/31/19 22:14 Losartan Potassium (Cozaar) 100 mg DAILY ORAL 10/31/19 09:00 11/30/19 08:59 10/31/19 10:09 Multivitamins (Multivitamins) 1 tab DAILY ORAL 10/30/19 09:00 11/29/19 08:59 10/30/19 08:39 Piperacillin Sod/ Tazobactam Sod 3.375 gm/Sodium Chloride 110 ml @ 27.5 mls/hr Q12H IVPB 10/30/19 22:00 11/06/19 21:59 10/31/19 11:40 Sevelamer Carbonate (Renvela) 800 mg THREE TIMES A DAY ORAL 10/31/19 18:00 11/30/19 17:59 Zinc Sulfate (Zinc Sulfate) 220 mg DAILY ORAL 10/30/19 09:00 11/29/19 08:59 10/31/19 10:07 Brijesh Miller MD Oct 31, 2019 22:32
[2019-11-01] VITALS (21 sets, daily range): BP systolic 107–158; BP diastolic 44–108
--- NOTE | 2019-11-01 01:06 | NUR ---
NURSE NOTES: called and left message for Dr. Miller regarding pt's elevated temp of 102.9. awaiting call back. cooling bath and ice packs applied to patient. will continue to monitor.
--- NOTE | 2019-11-01 01:25 | NUR ---
NURSE NOTES: received call back from Dr. Miller. per MD, cooling measures only at this time.
--- NOTE | 2019-11-01 01:30 | NUR ---
NURSE NOTES: fan applied to pt in addition to cooling measures. will continue to monitor.
--- NOTE | 2019-11-01 02:30 | NUR ---
NURSE NOTES: pt's current temp is 100.5. will continue to monitor.
--- NOTE | 2019-11-01 04:05 | NUR ---
NURSE NOTES: pt's temp is 99.3 orally and 98.4 axillary. will continue to monitor.
--- NOTE | 2019-11-01 04:15 | Consultation ---
DATE OF CONSULTATION: 10/31/2019 INFECTIOUS DISEASE CONSULTATION CONSULTING PHYSICIAN: Brijesh Miller M.D. ATTENDING PHYSICIAN: Jake Alvarado M.D. REFERRING PHYSICIAN: Jake Alvarado M.D. REASON FOR CONSULTATION: Gram-negative UTI, pyelonephritis, sepsis, fevers. The patient also has possible right foot infected wound, possible pneumonia, shortness of breath, renal failure, elevated LFTs, sepsis. CHIEF COMPLAINT: The patient's chief complaint coming into the hospital is sepsis, shortness of breath, fevers, UTI. HISTORY OF PRESENT ILLNESS: This is a 64-year-old female who comes to [facility]. The patient is febrile at 102. The patient has renal failure, now is short of breath, likely has pulmonary edema, but also could have pneumonia. The patient has a partial amputation of the right foot and could have an infected wound, rule out osteo. Because of the Gram-negative UTI, pyelonephritis, and sepsis, Infectious Diseases consultation requested. I started the patient yesterday on Zosyn and Zyvox. Cultures have been ordered. Blood cultures negative today. Imaging was noted also. Case was discussed with the patient and the patient's and the RN at the bedside, and urine culture has Gram-negative bacilli, thus has Gram-negative UTI and pyelonephritis. We will continue Zosyn and Zyvox for now. The patient is short of breath right now and breathing mask she just had dialysis. The patient is in the [facility]. MAR was noted. Orders were noted. Notes were reviewed. REVIEW OF SYSTEMS: CONSTITUTIONAL: She has generalized fatigue. She does have a Peña. She just got hemodialysis. She came with fever and chills, temperature as high as 102. She has generalized fatigue and weakness. No new focal weakness. HEAD AND NECK: No headache, neck stiffness, dysphagia, or thrush. CARDIAC: No chest pain. GASTROINTESTINAL: No nausea, vomiting, abdominal pain, or diarrhea. GENITOURINARY: She has hemodialysis. She has a Peña. No CVA tenderness. PULMONARY: She is short of breath, cough. No secretions. SKIN: No rash. EXTREMITIES: No pain. NEUROLOGIC: No seizures. She has right foot partial amputation. Generalized fatigue. No new focal weakness. No rashes or seizure activity. PAST MEDICAL HISTORY: The patient's past medical history includes history of following. The patient has a past medical history of renal failure. The patient has a past medical history of UTI. She has a past medical history of seizures, renal failure, hyperkalemia. She has history of anemia. She has a past medical history of hypertension, elevated troponin, and altered level of consciousness. She has a past medical history of partial amputation of the right foot. She has a past medical history of chronic kidney disease as I mentioned, hypertension, looks like also history of CVA per the records, past medical history of diabetes. Other past history includes dyslipidemia, history of gout, and also peripheral vascular disease, again looks like partial foot amputation. ALLERGIES: She has no known drug allergies. No antibiotic allergies. SOCIAL HISTORY: Negative for smoking, alcohol, or drug use currently. FAMILY HISTORY: Noncontributory. Negative for exposure to tuberculosis or cancer. MEDICATIONS: Upon reviewing the MAR, she is on the following medications. She is on Epogen, Renvela, Zosyn, Zyvox, atorvastatin, Lipitor, Cozaar, Keppra, breathing treatments, allopurinol, ascorbic acid, carvedilol, clonidine, multivitamin, zinc sulfate, and hydrocodone. Outside medications were noted and reconciliated. PHYSICAL EXAMINATION: VITAL SIGNS: Temperature is 99.1, pulse rate 79, respiratory rate 22, blood pressure 173/54, saturation 93%. She is on a breathing mask when I saw her. T-max 102, pulse rate as high as 96 on admission. GENERAL: Short of breath on a breathing mask, responsive, alert. HEAD AND NECK: Oral exam, no thrush. Eye exam, no icterus. Normocephalic. Neck is supple. No JVD. HEART: Regular. No obvious gallop or murmur. No friction rub. ABDOMEN: Soft. Positive bowel sounds. Does not seem to be tender. LUNGS: Bilateral rhonchi, rales, and crackles. SKIN: No rash. MUSCULOSKELETAL: No effusion. Legs are without cellulitis. PERIPHERAL VASCULAR: Right foot amputation site, there looks like some possible wound dehiscence and drainage, no cellulitis. GENITOURINARY: She has a Peña. Urine is slightly cloudy. LINE SITES: Without phlebitis. NEUROLOGIC: Generalized weakness. Alert, responsive. Nonfocal. LABORATORY AND DIAGNOSTIC DATA: Laboratory data as follows, white count 6.6, hemoglobin 8.9, and platelet count 148. Creatinine is 4.8. LFTs, AST 1100, ALT 820, alkaline phosphatase 212. UA had too many to count white blood cells, many bacteria. Cultures, blood cultures negative. Urine culture with Gram-negative bacilli, it is preliminary. Blood cultures negative. Chest x-ray shows increased airspace disease, edema versus infiltrates. Initial chest x-ray showed infiltrate versus mass in the right upper lobe. ASSESSMENT AND PLAN: 1. The patient has Gram-negative UTI, pyelonephritis, positive UA with sepsis, fevers, SIRS criteria. It is unclear if the patient has pneumonia versus CHF. She is certainly at risk for both community-acquired and aspiration pneumonia. The patient does come from home. The patient also has a right foot wound dehiscence, possible infected wound, rule out osteo. The patient has elevated LFTs, rule out cholecystitis, viral hepatitis versus sepsis as the cause of the elevated LFTs. At this time, we will continue Zosyn and Zyvox for Gram-negative anaerobic and Gram-positive coverage including MRSA. Continue Zosyn and Zyvox for Gram-negative UTI, pyelonephritis, sepsis, possible infected right foot wound, osteo, possible pneumonia. Check cultures including sputum culture, wound culture, blood cultures, urine culture. Check followup laboratories, check x-ray of the right foot. Check abdominal ultrasound. Check viral hepatitis panel. I think this is being done by GI. Continue Zosyn and Zyvox pending cultures, labs, chest x-ray, and imaging studies. I would also consider Podiatry evaluation for the right foot. I will get an x-ray. I will also get wound culture. 2. The patient has shortness of breath. The patient is being followed by Renal Medicine for possible edema and CHF and also by Pulmonary Medicine. 3. Renal failure, on hemodialysis. 4. Anemia. 5. Diabetes. 6. Hypertension. 7. Blood sugar and blood pressure treatment for diabetes and hypertension per primary care team. 8. Dyslipidemia. 9. Gout. 10. Chronic renal failure. 11. Peripheral vascular disease. 12. Right partial foot amputation. 13. Looks like history of possible CVA. 14. Skin care protocol. 15. Continue treatment per primary consultants. 16. No known allergies. 17. Social history is negative. 18. Family history is noncontributory. 19. MAR is noted. 20. Case was discussed with RN. Case was discussed with the patient, the patient's , and the RN at bedside also. Brijesh Miller M.D. DR: LIBERTAD JOB#: [id number] CC: [place]
[2019-11-01 05:54] LABS: HEMATOCRIT 26.9 % (37.0-47.0); MEAN CORPUSCULAR VOLUME 93 FL (80-99); PLATELET COUNT 121 K/UL (150-450); RED CELL DISTRIBUTION WIDTH 17.5 % (11.6-14.8)
[2019-11-01 06:10] LABS: ANION GAP 14 mmol/L (5-15); BLOOD UREA NITROGEN 52 mg/dL (7-18); CALCIUM 8.5 MG/DL (8.5-10.1); CARBON DIOXIDE 21 MMOL/L (21-32); CHLORIDE 108 MMOL/L (98-107); CREATININE 3.8 MG/DL (0.55-1.30); POTASSIUM 4.1 MMOL/L (3.5-5.1); SODIUM 143 MMOL/L (136-145)
--- NOTE | 2019-11-01 07:45 | NUR ---
HAND-OFF: Report given to Raheem Kauffman. endorsed plan of care to incoming RN. Addendum: 11/01/19 at 0746 by QUOC GUILLORY RN RN Report given to Raheem Kauffman RN.
--- NOTE | 2019-11-01 08:44 | Nephrology Progress Note ---
Assessment/Plan Assessment 1.HEIDI 2.CKD 3.Respiratory failure 4.fever 5.NSTEMI Plan 1.DIALYSIS today 2.monitoring renal function 3.avoid NSIAD 4.HTN Subjective ROS Limited/Unobtainable: Yes Subjective she had dialysis last night 2 litter out overnight she continue to be on NRM and developed fever Objective Objective Last 24 Hour Vital Signs Date Time Temp Pulse Resp B/P (MAP) Pulse Ox O2 Delivery O2 Flow Rate FiO2 11/01/19 08:00 75 11/01/19 04:00 Non-Rebreather 11/01/19 04:00 98.4 87 24 107/69 (82) 93 11/01/19 04:00 84 11/01/19 00:00 85 11/01/19 00:00 Non-Rebreather 11/01/19 00:00 102.9 87 24 151/74 (99) 95 10/31/19 21:30 79 173/54 10/31/19 20:14 96 Nasal Cannula 3.0 32 10/31/19 20:14 79 22 96 Nasal Cannula 3.0 32 10/31/19 20:00 99.1 78 24 173/54 (93) 96 10/31/19 20:00 76 10/31/19 20:00 Non-Rebreather 10/31/19 18:00 151/71 10/31/19 16:00 Nasal Cannula 4.0 10/31/19 16:00 98.2 72 25 151/71 (97) 93 10/31/19 15:28 71 10/31/19 12:00 Nasal Cannula 4.0 10/31/19 12:00 98.6 75 24 158/71 (100) 96 10/31/19 11:46 74 10/31/19 10:09 154/69 10/31/19 10:09 81 154/69 10/31/19 10:08 154/69 Intake and Output 10/31/19 11/01/19 19:00 07:00 Intake Total 250 ml 240 ml Output Total 475 ml 2400 ml Balance -225 ml -2160 ml Intake Oral 250 ml 240 ml Output Urine Total 475 ml 400 ml Hemodialysis UF 2000 ml Laboratory Tests 10/31/19 10:20: Arterial Blood pH 7.281L, Arterial Blood Partial Pressure CO2 38.8, Arterial Blood Partial Pressure O2 75.4, Arterial Blood HCO3 17.9*L, Arterial Blood Oxygen Saturation 94.1L, Arterial Blood Base Excess -8.2L, Karan Test Positive 10/31/19 18:45: Troponin I 1.811H, Hepatitis B Surface Antigen Negative 11/01/19 03:11: Troponin I 1.583H, White Blood Count 8.0, Red Blood Count 2.90L, Hemoglobin 9.0L , Hematocrit 26.9L, Mean Corpuscular Volume 93, Mean Corpuscular Hemoglobin 31.0 , Mean Corpuscular Hemoglobin Concent 33.4, Red Cell Distribution Width 17.5H, Platelet Count 121L, Mean Platelet Volume 7.4, Neutrophils (%) (Auto) , Lymphocytes (%) (Auto) , Monocytes (%) (Auto) , Eosinophils (%) (Auto) , Basophils (%) (Auto) , Neutrophils % (Manual) [Pending], Lymphocytes % (Manual) [Pending], Platelet Estimate [Pending], Platelet Morphology [Pending], Sodium Level 143, Potassium Level 4.1, Chloride Level 108H, Carbon Dioxide Level 21, Anion Gap 14, Blood Urea Nitrogen 52H, Creatinine 3.8H, Estimat Glomerular Filtration Rate 14.5, Glucose Level 218H, Calcium Level 8.5, Pro-B-Type Natriuretic Peptide > 71111B Height (Feet): 5 Height (Inches): 4.00 Weight (Pounds): 193 Objective HEAD AND NECK: No JVP. No LAD. No thyromegaly. Extraocular movements intact. Pupils are reactive to light and accommodation. LUNGS: Bilateral crackles and diffuse wheezing. CARDIAC: Regular rate and rhythm. S1-S2 tachy. No murmur. No rub. ABDOMEN: Soft, nontender, nondistended. EXTREMITIES: Status post toe amputation and has 2+ edema. No clubbing. No cyanosis. Waleska Pyle MD Nov 01, 2019 08:44
--- NOTE | 2019-11-01 08:50 | NUR ---
NURSE NOTES: Dr. Pyle at nurse station, patient will have another hemodialysis today. Noted. Will continue to monitor patient.
[2019-11-01] MEDS: cloNIDine 0.2mg Tab ORAL SCH ×2 (08:55→18:00)
[2019-11-01] MEDS: Carvedilol 12.5mg tab ORAL SCH (08:55)
[2019-11-01] MEDS: Losartan 50mg tab ORAL SCH (08:55)
[2019-11-01] MEDS: Renvela 800mg Pkt ORAL SCH ×3 (09:13→18:00)
[2019-11-01] MEDS: Allopurinol 100mg Tab ORAL SCH (09:13)
[2019-11-01] MEDS: Ascorbic Acid 500mg tab ORAL SCH (09:14)
[2019-11-01] MEDS: Zinc Sulfate 220mg cap ORAL SCH (09:14)
--- NOTE | 2019-11-01 09:16 | Pulmonology Progress Note ---
Assessment/Plan Assessment/Plan IMPRESSION: 1. Pulmonary edema with infiltrate/mass in the right upper lobe. 2. UTI. 3. Acute renal failure. 4. Hypoxemia. 5. Respiratory failure. 6. Anemia. DISCUSSION: Agree with need for dialysis. Agree with diuretics, Peña, and broad-spectrum antibiotics. Home medications to be continued. I will follow as surgical product sales consultant. Continue NRBM; may need BiPAP. Faraz Bower M.D. Subjective Interval Events: Seen by renal; remains on NRBM Constitutional: Reports: no symptoms HEENT: Repors: no symptoms Respiratory: Reports: shortness of breath Cardiovascular: Reports: no symptoms Gastrointestinal/Abdominal: Reports: no symptoms Genitourinary: Reports: no symptoms Allergies: Coded Allergies: No Known Allergies (Unverified , 08/03/19) Objective Last 24 Hour Vital Signs Date Time Temp Pulse Resp B/P (MAP) Pulse Ox O2 Delivery O2 Flow Rate FiO2 11/01/19 08:00 75 11/01/19 04:00 Non-Rebreather 11/01/19 04:00 98.4 87 24 107/69 (82) 93 11/01/19 04:00 84 11/01/19 00:00 85 11/01/19 00:00 Non-Rebreather 11/01/19 00:00 102.9 87 24 151/74 (99) 95 10/31/19 21:30 79 173/54 10/31/19 20:14 96 Nasal Cannula 3.0 32 10/31/19 20:14 79 22 96 Nasal Cannula 3.0 32 10/31/19 20:00 99.1 78 24 173/54 (93) 96 10/31/19 20:00 76 10/31/19 20:00 Non-Rebreather 10/31/19 18:00 151/71 10/31/19 16:00 Nasal Cannula 4.0 10/31/19 16:00 98.2 72 25 151/71 (97) 93 10/31/19 15:28 71 10/31/19 12:00 Nasal Cannula 4.0 10/31/19 12:00 98.6 75 24 158/71 (100) 96 10/31/19 11:46 74 10/31/19 10:09 154/69 10/31/19 10:09 81 154/69 10/31/19 10:08 154/69 Intake and Output 10/31/19 11/01/19 19:00 07:00 Intake Total 250 ml 240 ml Output Total 475 ml 2400 ml Balance -225 ml -2160 ml Intake Oral 250 ml 240 ml Output Urine Total 475 ml 400 ml Hemodialysis UF 2000 ml General Appearance: no acute distress HEENT: normocephalic Respiratory/Chest: chest wall non-tender, decreased breath sounds, crackles/ rales Cardiovascular: normal peripheral pulses Abdomen: normal bowel sounds Microbiology Date/Time Source Procedure Growth Status 10/30/19 21:00 Blood Blood Culture - Preliminary NO GROWTH AFTER 24 HOURS Resulted 10/30/19 20:50 Blood Blood Culture - Preliminary NO GROWTH AFTER 24 HOURS Resulted 10/29/19 19:50 Blood Blood Culture - Preliminary NO GROWTH AFTER 48 HOURS Resulted 10/29/19 19:35 Blood Blood Culture - Preliminary NO GROWTH AFTER 48 HOURS Resulted 10/30/19 00:00 Nasal Nares MRSA Culture - Final NO METHICILLIN RESISTANT STAPH AUREUS... Complete 10/29/19 19:40 Nasal Nares - Final Complete 10/29/19 19:40 Nasal Nares - Final Complete 10/29/19 21:20 Urine,Clean Catch Urine Culture - Final Proteus Mirabilis Complete Laboratory Tests 10/31/19 10:20: Arterial Blood pH 7.281L, Arterial Blood Partial Pressure CO2 38.8, Arterial Blood Partial Pressure O2 75.4, Arterial Blood HCO3 17.9*L, Arterial Blood Oxygen Saturation 94.1L, Arterial Blood Base Excess -8.2L, Karan Test Positive 10/31/19 18:45: Troponin I 1.811H, Hepatitis B Surface Antigen Negative 11/01/19 03:11: Troponin I 1.583H, White Blood Count 8.0, Red Blood Count 2.90L, Hemoglobin 9.0L , Hematocrit 26.9L, Mean Corpuscular Volume 93, Mean Corpuscular Hemoglobin 31.0 , Mean Corpuscular Hemoglobin Concent 33.4, Red Cell Distribution Width 17.5H, Platelet Count 121L, Mean Platelet Volume 7.4, Neutrophils (%) (Auto) , Lymphocytes (%) (Auto) , Monocytes (%) (Auto) , Eosinophils (%) (Auto) , Basophils (%) (Auto) , Neutrophils % (Manual) [Pending], Lymphocytes % (Manual) [Pending], Platelet Estimate [Pending], Platelet Morphology [Pending], Sodium Level 143, Potassium Level 4.1, Chloride Level 108H, Carbon Dioxide Level 21, Anion Gap 14, Blood Urea Nitrogen 52H, Creatinine 3.8H, Estimat Glomerular Filtration Rate 14.5, Glucose Level 218H, Calcium Level 8.5, Pro-B-Type Natriuretic Peptide > 06883V Current Medications Medications (Trade) Dose Ordered Sig/Cb Route PRN Reason Start Time Stop Time Status Last Admin Dose Admin Acetaminophen/ Hydrocodone Bitart ([place] 5/325) 1 tab Q6H PRN ORAL For Pain 10/30/19 02:30 11/06/19 02:29 10/30/19 23:09 Albuterol/ Ipratropium (Albuterol/ Ipratropium) 3 ml Q4HRT PRN HHN Shortness of Breath 10/30/19 18:45 11/04/19 18:44 10/31/19 01:19 Allopurinol (Zyloprim) 100 mg DAILY ORAL 10/30/19 09:00 11/29/19 08:59 10/31/19 10:08 Ascorbic Acid (Vitamin C) 500 mg DAILY ORAL 10/30/19 09:00 11/29/19 08:59 10/31/19 10:07 Atorvastatin Calcium (Lipitor) 40 mg BEDTIME ORAL 10/30/19 21:00 11/29/19 20:59 10/31/19 21:31 Carvedilol (Coreg) 12.5 mg EVERY 12 HOURS ORAL 10/30/19 09:00 11/29/19 08:59 10/31/19 21:30 Clonidine HCl (Catapres tab) 0.2 mg BID ORAL 10/30/19 09:00 11/29/19 08:59 10/31/19 10:08 Epoetin Julio (Epoetin Julio(ESRD on dialysis)) 10,000 unit WED-WED-WED SUBQ 11/01/19 21:00 12/01/19 20:59 Iron Sucrose 100 mg/Sodium Chloride 60 ml @ 240 mls/hr BEDTIME IV 10/31/19 21:00 11/04/19 21:14 10/31/19 22:14 Levetiracetam (Keppra) 500 mg Q12HR ORAL 10/30/19 21:00 11/29/19 20:59 10/31/19 21:30 Linezolid 300 ml @ 300 mls/hr Q12HR IVPB 10/30/19 21:00 11/06/19 20:59 10/31/19 22:14 Losartan Potassium (Cozaar) 100 mg DAILY ORAL 10/31/19 09:00 11/30/19 08:59 10/31/19 10:09 Multivitamins (Multivitamins) 1 tab DAILY ORAL 10/30/19 09:00 11/29/19 08:59 10/30/19 08:39 Piperacillin Sod/ Tazobactam Sod 3.375 gm/Sodium Chloride 110 ml @ 27.5 mls/hr Q12H IVPB 10/30/19 22:00 11/06/19 21:59 10/31/19 23:07 Sevelamer Carbonate (Renvela) 800 mg THREE TIMES A DAY ORAL 10/31/19 18:00 11/30/19 17:59 Zinc Sulfate (Zinc Sulfate) 220 mg DAILY ORAL 10/30/19 09:00 11/29/19 08:59 10/31/19 10:07 Faraz Bower MD Nov 01, 2019 09:16
--- NOTE | 2019-11-01 09:51 | General Progress Note ---
Assessment/Plan Status: unchanged Assessment/Plan: Problems: (1) Shock liver ICD Codes: K72.00 - Acute and subacute hepatic failure without coma SNOMED: 259500196 (2) Elevated troponin ICD Codes: R79.89 - Other specified abnormal findings of blood chemistry SNOMED: 823622377, 372338695, 727676344 (3) Profound anemia (4) UTI Assessment/Plan Patient will need endoscopy and colonoscopy to evaluate anemia at some point, but will require cardiac clearance given elevated troponin levels. Monitor H&H, as needed transfusions >> patient status post 2 units of packed RBCs sudden spike in LFTs most likely 2/2 to shock liver, trend LFTs Occult blood stool to evaluate GI bleed Anemia work-up fu cardio and nephro recommendations Electrolyte correction PPI abx per ID we will follow along on a daily basis with any additional recommendations Subjective Allergies: Coded Allergies: No Known Allergies (Unverified , 08/03/19) Objective Last 24 Hour Vital Signs Date Time Temp Pulse Resp B/P (MAP) Pulse Ox O2 Delivery O2 Flow Rate FiO2 11/01/19 08:00 75 11/01/19 04:00 Non-Rebreather 11/01/19 04:00 98.4 87 24 107/69 (82) 93 11/01/19 04:00 84 11/01/19 00:00 85 11/01/19 00:00 Non-Rebreather 11/01/19 00:00 102.9 87 24 151/74 (99) 95 10/31/19 21:30 79 173/54 10/31/19 20:14 96 Nasal Cannula 3.0 32 10/31/19 20:14 79 22 96 Nasal Cannula 3.0 32 10/31/19 20:00 99.1 78 24 173/54 (93) 96 10/31/19 20:00 76 10/31/19 20:00 Non-Rebreather 10/31/19 18:00 151/71 10/31/19 16:00 Nasal Cannula 4.0 10/31/19 16:00 98.2 72 25 151/71 (97) 93 10/31/19 15:28 71 10/31/19 12:00 Nasal Cannula 4.0 10/31/19 12:00 98.6 75 24 158/71 (100) 96 10/31/19 11:46 74 10/31/19 10:09 154/69 10/31/19 10:09 81 154/69 10/31/19 10:08 154/69 Intake and Output 10/31/19 11/01/19 19:00 07:00 Intake Total 250 ml 240 ml Output Total 475 ml 2400 ml Balance -225 ml -2160 ml Intake Oral 250 ml 240 ml Output Urine Total 475 ml 400 ml Hemodialysis UF 2000 ml Laboratory Tests 10/31/19 10:20: Arterial Blood pH 7.281L, Arterial Blood Partial Pressure CO2 38.8, Arterial Blood Partial Pressure O2 75.4, Arterial Blood HCO3 17.9*L, Arterial Blood Oxygen Saturation 94.1L, Arterial Blood Base Excess -8.2L, Karan Test Positive 10/31/19 18:45: Troponin I 1.811H, Hepatitis B Surface Antigen Negative 11/01/19 03:11: Troponin I 1.583H, White Blood Count 8.0, Red Blood Count 2.90L, Hemoglobin 9.0L , Hematocrit 26.9L, Mean Corpuscular Volume 93, Mean Corpuscular Hemoglobin 31.0 , Mean Corpuscular Hemoglobin Concent 33.4, Red Cell Distribution Width 17.5H, Platelet Count 121L, Mean Platelet Volume 7.4, Neutrophils (%) (Auto) , Lymphocytes (%) (Auto) , Monocytes (%) (Auto) , Eosinophils (%) (Auto) , Basophils (%) (Auto) , Neutrophils % (Manual) [Pending], Lymphocytes % (Manual) [Pending], Platelet Estimate [Pending], Platelet Morphology [Pending], Sodium Level 143, Potassium Level 4.1, Chloride Level 108H, Carbon Dioxide Level 21, Anion Gap 14, Blood Urea Nitrogen 52H, Creatinine 3.8H, Estimat Glomerular Filtration Rate 14.5, Glucose Level 218H, Calcium Level 8.5, Pro-B-Type Natriuretic Peptide > 47691P Height (Feet): 5 Height (Inches): 4.00 Weight (Pounds): 193 General Appearance: no apparent distress EENT: normal ENT inspection Neck: supple Cardiovascular: normal rate Respiratory/Chest: decreased breath sounds Abdomen: normal bowel sounds, non tender, soft Extremities: non-tender Davi Toribio MD Nov 01, 2019 09:51
--- NOTE | 2019-11-01 10:50 | Diagnostic Imaging Report ---
Indication: Postoperative, foot pain Technique: 2 views right foot Comparison: none Findings: Patient is status post transmetatarsal amputation. Amputation margins appear clean. No radiopaque foreign body is demonstrated. There are vascular calcifications. Impression: Postoperative right foot, status post transmetatarsal amputation. No unusual features
[2019-11-01] MEDS: Piperacillin/Tazobactam 3.375 GM in NS 110 ML IVPB SCH (11:04)
--- NOTE | 2019-11-01 11:10 | NUR ---
RD ASSESSMENT & RECOMMENDATIONS SEE CARE ACTIVITY FOR COMPLETE ASSESSMENT DAILY ESTIMATED NEEDS: Needs based on HEIDI + HD, Wounds/ 62.8kg abw 25-30 kcals/kg 9492-8210 total kcals 1.25-1.8 g protein/kg 78-113 g total protein Fluids per MD NUTRITION DIAGNOSIS: * Increased kcal/prot needs R/T wound healing, on HD as evidenced by admitted w/ multiple wounds including full thickness wounds @ sacrum and plantar R foot, partial thickness wound @ medial upper L thigh, unstageable wound @ R heel, admitted w/ HEIDI, s/p urgent HD. * Altered nutrition related lab values R/T h/o DM and HEIDI as evidenced by elev BGs ([phone]), elev creat (5.0 -> 3.8), elev K (6.0 -> wnl), elev phos (5.2), elev BNP >83997. CURRENT DIET:Regular PO DIET RECOMMENDATIONS: RENAL, CCHO MED/ texture as tolerated ADDITIONAL RECOMMENDATIONS: * Calibrated bedscale wt- w/ added P200 mattress + pump * Monitor for continuity of HD (first HD on 10/31) * Rec NISS- h/o DM, w/ hyperglycemia * Wound healing: Add Denilson 1pkt BID Continue MVI / Vit C per Nephro MD * Add Nepro BID w/ continued variable PO intake (425kcal/19g prot per steve) * Monitor tolerance to current texture, need to downgrade or PIZZA DELIVERY eval
--- NOTE | 2019-11-01 12:44 | Infectious Diseases Prog Note ---
Assessment/Plan Assessment/Plan A) 1) sepsis, proteus uti/pyelonephritis, right foot wound - ? infected, ? osteomyelitis, elevated lft's, sob, renal failure, fevers 2) pmh noted 3) allergies - nkda P) 1) zosyn and zyvox 2) check cultures, x-rays, us, labs 3) consider podiatry evaluation of right foot 4) GI and pulmonary f/u 5) thank you Subjective Constitutional: Reports: fever HEENT: Reports: congestion Respiratory: Reports: shortness of breath Cardiovascular: Denies: chest pain Gastrointestinal/Abdominal: Denies: nausea, vomiting, diarrhea Allergies: Coded Allergies: No Known Allergies (Unverified , 08/03/19) Objective Vital Signs Last 24 Hour Vital Signs Date Time Temp Pulse Resp B/P (MAP) Pulse Ox O2 Delivery O2 Flow Rate FiO2 11/01/19 12:00 Non-Rebreather 11/01/19 08:00 97.4 95 20 127/64 (85) 94 11/01/19 08:00 75 11/01/19 08:00 Non-Rebreather 11/01/19 04:00 Non-Rebreather 11/01/19 04:00 98.4 87 24 107/69 (82) 93 11/01/19 04:00 84 11/01/19 00:00 85 11/01/19 00:00 Non-Rebreather 11/01/19 00:00 102.9 87 24 151/74 (99) 95 10/31/19 21:30 79 173/54 10/31/19 20:14 96 Nasal Cannula 3.0 32 10/31/19 20:14 79 22 96 Nasal Cannula 3.0 32 10/31/19 20:00 99.1 78 24 173/54 (93) 96 10/31/19 20:00 76 10/31/19 20:00 Non-Rebreather 10/31/19 18:00 151/71 10/31/19 16:00 Nasal Cannula 4.0 10/31/19 16:00 98.2 72 25 151/71 (97) 93 10/31/19 15:28 71 Height (Feet): 5 Height (Inches): 4.00 Weight (Pounds): 193 General Appearance: no acute distress HEENT: normocephalic Respiratory/Chest: crackles/rales, rhonchi - bilaterally Cardiovascular: normal rate, regular rhythm Abdomen: normal bowel sounds, soft, non tender, no organomegaly Extremities: other - right foot covered Microbiology Date/Time Source Procedure Growth Status 10/30/19 21:00 Blood Blood Culture - Preliminary NO GROWTH AFTER 24 HOURS Resulted 10/30/19 20:50 Blood Blood Culture - Preliminary NO GROWTH AFTER 24 HOURS Resulted 10/29/19 19:50 Blood Blood Culture - Preliminary NO GROWTH AFTER 48 HOURS Resulted 10/29/19 19:35 Blood Blood Culture - Preliminary NO GROWTH AFTER 48 HOURS Resulted 10/30/19 00:00 Nasal Nares MRSA Culture - Final NO METHICILLIN RESISTANT STAPH AUREUS... Complete 10/29/19 19:40 Nasal Nares - Final Complete 10/29/19 19:40 Nasal Nares - Final Complete 10/29/19 21:20 Urine,Clean Catch Urine Culture - Final Proteus Mirabilis Complete Laboratory Tests Test 10/31/19 18:45 11/01/19 03:11 Troponin I 1.811 ng/mL (0.000-0.056) 1.583 ng/mL (0.000-0.056) Hepatitis B Surface Antigen Negative (NEGATIVE) White Blood Count 8.0 K/UL (4.8-10.8) Red Blood Count 2.90 M/UL (4.20-5.40) L Hemoglobin 9.0 G/DL (12.0-16.0) L Hematocrit 26.9 % (37.0-47.0) L Mean Corpuscular Volume 93 FL (80-99) Mean Corpuscular Hemoglobin 31.0 PG (27.0-31.0) Mean Corpuscular Hemoglobin Concent 33.4 G/DL (32.0-36.0) Red Cell Distribution Width 17.5 % (11.6-14.8) H Platelet Count 121 K/UL (150-450) L Mean Platelet Volume 7.4 FL (6.5-10.1) Neutrophils (%) (Auto) % (45.0-75.0) Lymphocytes (%) (Auto) % (20.0-45.0) Monocytes (%) (Auto) % (1.0-10.0) Eosinophils (%) (Auto) % (0.0-3.0) Basophils (%) (Auto) % (0.0-2.0) Differential Total Cells Counted 100 Neutrophils % (Manual) 95 % (45-75) H Lymphocytes % (Manual) 4 % (20-45) L Monocytes % (Manual) 1 % (1-10) Eosinophils % (Manual) 0 % (0-3) Basophils % (Manual) 0 % (0-2) Band Neutrophils 0 % (0-8) Platelet Estimate Decreased L Platelet Morphology Normal Anisocytosis 1+ Sodium Level 143 MMOL/L (136-145) Potassium Level 4.1 MMOL/L (3.5-5.1) Chloride Level 108 MMOL/L (98-107) H Carbon Dioxide Level 21 MMOL/L (21-32) Anion Gap 14 mmol/L (5-15) Blood Urea Nitrogen 52 mg/dL (7-18) H Creatinine 3.8 MG/DL (0.55-1.30) H Estimat Glomerular Filtration Rate 14.5 mL/min (>60) Glucose Level 218 MG/DL (74-106) H Calcium Level 8.5 MG/DL (8.5-10.1) Pro-B-Type Natriuretic Peptide > 84069 pg/mL (0-125) H Current Medications Medications (Trade) Dose Ordered Sig/Cb Route PRN Reason Start Time Stop Time Status Last Admin Dose Admin Acetaminophen/ Hydrocodone Bitart ([place] 5/325) 1 tab Q6H PRN ORAL For Pain 10/30/19 02:30 11/06/19 02:29 10/30/19 23:09 Albuterol/ Ipratropium (Albuterol/ Ipratropium) 3 ml Q4HRT PRN HHN Shortness of Breath 10/30/19 18:45 11/04/19 18:44 10/31/19 01:19 Allopurinol (Zyloprim) 100 mg DAILY ORAL 10/30/19 09:00 11/29/19 08:59 11/01/19 09:13 Ascorbic Acid (Vitamin C) 500 mg DAILY ORAL 10/30/19 09:00 11/29/19 08:59 11/01/19 09:14 Atorvastatin Calcium (Lipitor) 40 mg BEDTIME ORAL 10/30/19 21:00 11/29/19 20:59 10/31/19 21:31 Carvedilol (Coreg) 12.5 mg EVERY 12 HOURS ORAL 10/30/19 09:00 11/29/19 08:59 10/31/19 21:30 Clonidine HCl (Catapres tab) 0.2 mg BID ORAL 10/30/19 09:00 11/29/19 08:59 10/31/19 10:08 Epoetin Julio (Epoetin Julio(ESRD on dialysis)) 10,000 unit SUBQ 11/01/19 21:00 12/01/19 20:59 Iron Sucrose 100 mg/Sodium Chloride 60 ml @ 240 mls/hr BEDTIME IV 10/31/19 21:00 11/04/19 21:14 10/31/19 22:14 Levetiracetam (Keppra) 500 mg Q12HR ORAL 10/30/19 21:00 11/29/19 20:59 11/01/19 09:13 Linezolid 300 ml @ 300 mls/hr Q12HR IVPB 10/30/19 21:00 11/06/19 20:59 11/01/19 09:13 Losartan Potassium (Cozaar) 100 mg DAILY ORAL 10/31/19 09:00 11/30/19 08:59 10/31/19 10:09 Multivitamins (Multivitamins) 1 tab DAILY ORAL 10/30/19 09:00 11/29/19 08:59 11/01/19 09:14 Piperacillin Sod/ Tazobactam Sod 3.375 gm/Sodium Chloride 110 ml @ 27.5 mls/hr Q12H IVPB 10/30/19 22:00 11/06/19 21:59 11/01/19 11:04 Sevelamer Carbonate (Renvela) 800 mg THREE TIMES A DAY ORAL 10/31/19 18:00 11/30/19 17:59 11/01/19 09:13 Zinc Sulfate (Zinc Sulfate) 220 mg DAILY ORAL 10/30/19 09:00 11/29/19 08:59 11/01/19 09:14 Brijesh Miller MD Nov 01, 2019 12:44
--- NOTE | 2019-11-01 14:11 | NUR ---
NURSE NOTES: Called patient's , Mr. Narvaez, , and informed that patient has been transferred to ICU. Noted.
[2019-11-01] MEDS ORDERED: Albuterol/Ipratropium 3ml neb HHN PRN ×3 (14:15→15:00)
--- NOTE | 2019-11-01 14:15 | NUR ---
NURSE NOTES: Report received from ANDI Senior. Pt is non-responsive to pain. Pupils fixed +3-4. Sinus rhythm on conveyor monitor. Orally intubated during code blue. ETT 7.5/24cm at mid lip line. AC 18, TV 450, P 5, FiO2 100%. O2 sat 92-93%. Temp 98.[address]ña in [address] draining scant amount of urine. IV to right AC G20 patent and asymptomatic. Right IJ Haile with pigtail for HD noted. Bed in lowest position. Side rails up x3. Will resume plan of care.
--- NOTE | 2019-11-01 14:15 | NUR ---
TRANSFER TO FLOOR: Patient transferred to ICU [id number], per Dr. Alvarado. Report given to Rosangela Bey RN. Belongings and medications given to Rosangela Bey RN. Family informed of transfer.
[2019-11-01 14:21] LABS: ANION GAP 15 mmol/L (5-15); BLOOD UREA NITROGEN 54 mg/dL (7-18); CALCIUM 7.8 MG/DL (8.5-10.1); CARBON DIOXIDE 21 MMOL/L (21-32); CHLORIDE 107 MMOL/L (98-107); CREATININE 4.3 MG/DL (0.55-1.30); POTASSIUM 3.9 MMOL/L (3.5-5.1); SODIUM 143 MMOL/L (136-145)
--- NOTE | 2019-11-01 14:32 | Cardiac Electrophysiology PN ---
Assessment/Plan Assessment/Plan 1. Non-ST elevation myocardial infarction with elevated troponin of 3.38.Down to 2 to 1. The patient however has renal failure. The EKG also showed inferolateral T-wave inversion. The patient however does not have any chest pain. DC Coreg for bradycardia.Continue Lipitor 40 mg daily and Imdur 20 mg daily. EF 65% 2. Bradycardia, likley due to respiratory failur. No further yocasta since intubation. 3. Respiratory failure, Intubated on the Vent 4. Hypertension. On Cozaar 100 mg daily, HD and clonidine 0.2 b.i.d. DC Coreg 5. Chronic kidney disease. 6. Severe anemia with hemoglobin of 6.5. S/P 3 units of PRBC. Hold off on EGD and colonoscopy DW ICU team Subjective Subjective Had rapid response for bradycardia and respiratory failure, coded and was intubated and now in ICU on the Vent. Had HD yesterday Objective Last 24 Hour Vital Signs Date Time Temp Pulse Resp B/P (MAP) Pulse Ox O2 Delivery O2 Flow Rate FiO2 11/01/19 12:00 Non-Rebreather 11/01/19 08:00 97.4 95 20 127/64 (85) 94 11/01/19 08:00 75 11/01/19 08:00 Non-Rebreather 11/01/19 04:00 Non-Rebreather 11/01/19 04:00 98.4 87 24 107/69 (82) 93 11/01/19 04:00 84 11/01/19 00:00 85 11/01/19 00:00 Non-Rebreather 11/01/19 00:00 102.9 87 24 151/74 (99) 95 10/31/19 21:30 79 173/54 10/31/19 20:14 96 Nasal Cannula 3.0 32 10/31/19 20:14 79 22 96 Nasal Cannula 3.0 32 10/31/19 20:00 99.1 78 24 173/54 (93) 96 10/31/19 20:00 76 10/31/19 20:00 Non-Rebreather 10/31/19 18:00 151/71 10/31/19 16:00 Nasal Cannula 4.0 10/31/19 16:00 98.2 72 25 151/71 (97) 93 10/31/19 15:28 71 Intake and Output 10/31/19 11/01/19 19:00 07:00 Intake Total 250 ml 240 ml Output Total 475 ml 2400 ml Balance -225 ml -2160 ml Intake Oral 250 ml 240 ml Output Urine Total 475 ml 400 ml Hemodialysis UF 2000 ml Laboratory Tests Test 10/31/19 18:45 11/01/19 03:11 11/01/19 13:50 Troponin I 1.811 ng/mL (0.000-0.056) 1.583 ng/mL (0.000-0.056) Hepatitis B Surface Antigen Negative (NEGATIVE) White Blood Count 8.0 K/UL (4.8-10.8) Red Blood Count 2.90 M/UL (4.20-5.40) L Hemoglobin 9.0 G/DL (12.0-16.0) L Hematocrit 26.9 % (37.0-47.0) L Mean Corpuscular Volume 93 FL (80-99) Mean Corpuscular Hemoglobin 31.0 PG (27.0-31.0) Mean Corpuscular Hemoglobin Concent 33.4 G/DL (32.0-36.0) Red Cell Distribution Width 17.5 % (11.6-14.8) H Platelet Count 121 K/UL (150-450) L Mean Platelet Volume 7.4 FL (6.5-10.1) Neutrophils (%) (Auto) % (45.0-75.0) Lymphocytes (%) (Auto) % (20.0-45.0) Monocytes (%) (Auto) % (1.0-10.0) Eosinophils (%) (Auto) % (0.0-3.0) Basophils (%) (Auto) % (0.0-2.0) Differential Total Cells Counted 100 Neutrophils % (Manual) 95 % (45-75) H Lymphocytes % (Manual) 4 % (20-45) L Monocytes % (Manual) 1 % (1-10) Eosinophils % (Manual) 0 % (0-3) Basophils % (Manual) 0 % (0-2) Band Neutrophils 0 % (0-8) Platelet Estimate Decreased L Platelet Morphology Normal Anisocytosis 1+ Sodium Level 143 MMOL/L (136-145) 143 MMOL/L (136-145) Potassium Level 4.1 MMOL/L (3.5-5.1) 3.9 MMOL/L (3.5-5.1) Chloride Level 108 MMOL/L (98-107) H 107 MMOL/L (98-107) Carbon Dioxide Level 21 MMOL/L (21-32) 21 MMOL/L (21-32) Anion Gap 14 mmol/L (5-15) 15 mmol/L (5-15) Blood Urea Nitrogen 52 mg/dL (7-18) H 54 mg/dL (7-18) H Creatinine 3.8 MG/DL (0.55-1.30) H 4.3 MG/DL (0.55-1.30) H Estimat Glomerular Filtration Rate 14.5 mL/min (>60) 12.7 mL/min (>60) Glucose Level 218 MG/DL (74-106) H 302 MG/DL (74-106) H Calcium Level 8.5 MG/DL (8.5-10.1) 7.8 MG/DL (8.5-10.1) L Pro-B-Type Natriuretic Peptide > 32378 pg/mL (0-125) H Microbiology Date/Time Source Procedure Growth Status 10/30/19 21:00 Blood Blood Culture - Preliminary NO GROWTH AFTER 24 HOURS Resulted 10/30/19 20:50 Blood Blood Culture - Preliminary NO GROWTH AFTER 24 HOURS Resulted 10/29/19 19:50 Blood Blood Culture - Preliminary NO GROWTH AFTER 48 HOURS Resulted 10/29/19 19:35 Blood Blood Culture - Preliminary NO GROWTH AFTER 48 HOURS Resulted 10/30/19 00:00 Nasal Nares MRSA Culture - Final NO METHICILLIN RESISTANT STAPH AUREUS... Complete 10/29/19 19:40 Nasal Nares - Final Complete 10/29/19 19:40 Nasal Nares - Final Complete 10/29/19 21:20 Urine,Clean Catch Urine Culture - Final Proteus Mirabilis Complete Objective HEAD AND NECK: No JVD.Orally intubated. Right IJ Haile in place LUNGS: Clear. CARDIOVASCULAR: Regular S1 and S2 with no gallop or murmur. ABDOMEN: Soft. EXTREMITIES: No pitting edema. Status post right toe amputation. Henry Fuentes MD Nov 01, 2019 14:32
--- NOTE | 2019-11-01 14:34 | NUR ---
PI[employer] SI; RESP FAILURE S/P CODE JJ Espinosa 102.9 HR 85 RR 24 B/P 151/74 BUN 54 CR 4.3 NRM FIO2 100% IS: ZYVOX IV ZOSYN IV PROTONIX IV TRANSFERRED TO ICU ICU STATUS
[2019-11-01] MEDS ORDERED: HYDROcodone/Acetamin 5/325 tab ORAL PRN (14:37)
--- NOTE | 2019-11-01 14:46 | NUR ---
NURSE NOTES: Called Dr Alvarado to verify Vanco order. Order to keep Vanco and discontinue Zyvox received, noted, and carried out. Notified pharmacy.
--- NOTE | 2019-11-01 15:14 | Diagnostic Imaging Report ---
Indication: Chest pain, shortness of breath, status post intubation Technique: One view of the chest Comparison: 10/31/2019 Findings: Interim endotracheal intubation, endotracheal tube tip projecting approximately 2 cm above the melvin. Interim placement of right jugular central venous catheter, tip of which projects at the level of the high right atrium. Bilateral interstitial and airspace infiltrates versus edema persists. There are overlying defibrillator paddles present. Impression: Slightly low position of endotracheal tube; per technologist this was corrected after images obtained. Satisfactory right jugular central venous catheter placement, no radiographically evident complication Other stable findings as described
--- NOTE | 2019-11-01 15:59 | Emergency Room Report ---
History of Present Illness General Chief Complaint: Altered Level of Consciousness Source: Family Member, Medical Record Present Illness Allergies: Coded Allergies: No Known Allergies (Unverified , 08/03/19) Nursing Documentation-[facility] Past Medical History: No History, Except For Hx Cardiac Problems: Yes - HTN Hx Hypertension: Yes Hx Diabetes: Yes Hx Gastrointestinal Problems: Yes - GASTROINTESTINAL HEMORRAGE, UNSP Hx Cerebrovascular Accident: Yes Physical Exam Vital Signs Date Time Temp Pulse Resp B/P (MAP) Pulse Ox O2 Delivery O2 Flow Rate FiO2 10/29/19 17:59 102.0 96 18 173/68 (103) 98 10/29/19 20:00 Room Air 10/29/19 20:05 2.0 10/30/19 20:37 32 Procedures CPR/Code Blue CPR/Code Blue Narrative See narrative and the MDM section of this note Intubation Intubation : Consent: Emergent Intubation Method: orotracheal Tube Size (cm): 7.5 Medications: Etomidate - 20mg, Rocuronium - 100mg Breath Sounds after Intubation: equal Intubation Complications: no complications Post Intubation Xray: Yes Progress/Xray Impression: Endotracheal tube tip projects above the melvin Attempts: One Patient Tolerated: Well Complications: None Medical Decision Making Diagnostic Impression: Primary Impression: Altered level of consciousness Additional Impressions: Elevated brain natriuretic peptide (BNP) level Renal failure Qualified Codes: N17.9 - Acute kidney failure, unspecified; N18.4 - Chronic kidney disease, stage 4 (severe) Elevated troponin Sepsis Qualified Codes: A41.9 - Sepsis, unspecified organism; R65.20 - Severe sepsis without septic shock; N17.9 - Acute kidney failure, unspecified UTI (urinary tract infection) Qualified Codes: N39.0 - Urinary tract infection, site not specified Profound anemia Qualified Codes: D64.9 - Anemia, unspecified Hypertension Qualified Codes: I10 - Essential (primary) hypertension Hyperkalemia ER Course Called to patient's room on a CODE BLUE. Briefly, this is a 64-year-old female with history of ESRD admitted for seizures and anemia. Reportedly the patient had been going bradycardic and then went into asystole. No palpable pulse was detected. A code was called. She was given epinephrine, bicarb and atropine prior to my arrival. On my arrival in the room compressions were ongoing. At the first pulse check the patient had palpable femoral and carotid pulses that were bounding. Pressures were adequate. She had agonal breathing and was intubated under direct visualization with a 7.5 endotracheal tube. Tip was projecting just above the melvin. Satisfactory aeration bilaterally. Confirmed by x-ray. Patient was transferred to the ICU for further monitoring and treatment. Admitting team was notified. Last Vital Signs Date Time Temp Pulse Resp B/P (MAP) Pulse Ox O2 Delivery O2 Flow Rate FiO2 11/01/19 15:00 78 18 153/53 (86) 95 11/01/19 14:44 Mechanical Ventilator 100 11/01/19 14:15 98.1 10/31/19 20:14 3.0 Disposition: ADMITTED INPATIENT Condition: Critical Referrals: Jake Alvarado MD (PCP) Caleb Burgos MD Nov 01, 2019 15:59
--- NOTE | 2019-11-01 16:02 | NUR ---
NURSE NOTES: Called and left a message to Dr Pyle regarding dialysis ordered for today. Awaiting call back for new orders.
--- NOTE | 2019-11-01 16:14 | NUR ---
NURSE NOTES: Notified Dr Bower regarding ABG result. Order for vent setting received, noted, and carried out.
--- NOTE | 2019-11-01 16:15 | NUR ---
NURSE NOTES: Dr Pyle called back and ordered to do Dilaysis today. Notified dialysis nurse.
[2019-11-01] MEDS ORDERED: NovoLOG Insulin Flexpen SUBQ SCH (16:30)
[2019-11-01 16:31] LABS: HEMOGLOBIN 8.5 G/DL (12.0-16.0); MEAN CORPUSCULAR VOLUME 92 FL (80-99); PLATELET COUNT 112 K/UL (150-450); RED BLOOD COUNT 2.82 M/UL (4.20-5.40); RED CELL DISTRIBUTION WIDTH 17.4 % (11.6-14.8); WHITE BLOOD COUNT 7.9 K/UL (4.8-10.8)
[2019-11-01 16:50] LABS: ANION GAP 16 mmol/L (5-15); BLOOD UREA NITROGEN 58 mg/dL (7-18); CARBON DIOXIDE 20 MMOL/L (21-32); CHLORIDE 107 MMOL/L (98-107); CREATININE 4.3 MG/DL (0.55-1.30); POTASSIUM 3.8 MMOL/L (3.5-5.1); SODIUM 143 MMOL/L (136-145)
[2019-11-01 16:51] LABS: CALCIUM 8.2 MG/DL (8.5-10.1)
--- NOTE | 2019-11-01 16:52 | Diagnostic Imaging Report ---
Indication: Abnormal liver function tests and abnormal renal function tests Technique: Kyle-scale and duplex images of the upper abdomen were obtained Comparison: none Findings: Gallbladder is unremarkable, without stones, wall thickening, nor pericholecystic fluid. Sonographic Kang's sign is negative. Common bile duct measures 7 mm in diameter. No intrahepatic biliary ductal dilatation. Liver demonstrates normal echogenicity, no focal abnormality. Portal vein and hepatic veins are patent. Pancreas is unremarkable. Spleen is unremarkable. Left kidney measures 10.5 cm in length. Right kidney measures 9.8 cm length. Both kidneys demonstrate slightly increased echogenicity. There are bilateral cysts in the kidneys. There is no hydronephrosis. There is trace right pleural fluid. Abdominal aorta is partially obscured by bowel gas, visualized portions are non-aneurysmal . Impression: Negative for gallstones Minimally dilated common bile duct. Downstream obstruction not completely excludable. Correlate with liver function tests, consider MRCP for further evaluation if clinically indicated Slightly increased renal echogenicity bilaterally. Negative for hydronephrosis Trace right pleural fluid Note nonvisualization of portions of the abdominal aorta
[2019-11-01 16:55] LABS: ALANINE AMINOTRANSFERASE 462 U/L (12-78); ALBUMIN 1.8 G/DL (3.4-5.0); ALBUMIN/GLOBULIN RATIO 0.4 (1.0-2.7); ALKALINE PHOSPHATASE 191 U/L (46-116); ASPARTATE AMINO TRANSFERASE 335 U/L (15-37); BILIRUBIN,TOTAL 0.7 MG/DL (0.2-1.0)
--- NOTE | 2019-11-01 17:22 | Consultation ---
History of Present Illness General Date patient seen: Nov 01, 2019 Chief Complaint: Altered Level of Consciousness Referring physician: JACKIE Reason for Consultation: lft's Present Illness HPI This is a 64-year-old female with multiple medical comorbidities who presented from home to [facility] ED for evaluation of altered level of consciousness. At the time of evaluation the patient is unable to provide any medical history and is in the ICU sedated on support. pre report, according to the the patient has history of kidney disease and has had blood transfusions in the past. Patient was last seen here at [facility] in July 2019 was transferred due to lacunar infarct. Surgery called to evaluate for abnormal LFT 's. Labs reviewed most notable with hyperkalemia, elevated creatinine levels, elevated troponin levels, elevated alkaline phosphatase. Noted that ammonia levels and lipase levels are within normal limits. Decubitus ulcers requiring care. Allergies: Coded Allergies: No Known Allergies (Unverified , 08/03/19) Medication History Scheduled Allopurinol* (Allopurinol*), 100 MG ORAL DAILY, (Reported) Amino Acids/Protein Hydrolys (Pro-Stat Liquid), 30 ML ORAL TWICE A DAY, ( Reported) Ascorbic Acid* (Vitamin C*), 500 MG ORAL DAILY, (Reported) Atorvastatin Calcium* (Atorvastatin Calcium*), 40 MG ORAL BEDTIME, (Reported) Carvedilol* (Carvedilol*), 12.5 MG ORAL EVERY 12 HOURS, (Reported) Losartan Potassium* (Losartan Potassium*), 50 MG ORAL DAILY, (Reported) Multivitamins* (Multivitamins*), 1 TAB ORAL DAILY, (Reported) Zinc Sulfate (Zinc Sulfate*), 220 MG ORAL DAILY, (Reported) Scheduled PRN Hydrocodone Bit/Acetaminophen 5-325* (Leverett 5-325*), 1 TAB ORAL Q6H PRN for For Pain, (Reported) Miscellaneous Medications Clonidine Hcl (Clonidine Hcl), 0.2 MG PO, (Reported) Isosorbide Mononitrate (Isosorbide Mononitrate), 20 MG PO, (Reported) Patient History Limited by: medical condition History Provided By: Medical Record, PMD Healthcare decision maker PT. REFER TO FACE SHEET. Resuscitation status Full Code Advanced Directive on File No Past Medical/Surgical History Past Medical/Surgical History: (1) Shock liver (2) Hyperkalemia (3) Renal failure (4) Sepsis (5) UTI (urinary tract infection) (6) Profound anemia (7) Hypertension (8) Altered level of consciousness (9) Elevated troponin (10) Elevated brain natriuretic peptide (BNP) level Review of Systems ROS Narrative cannot obtain given medical condition Physical Exam General Appearance: no apparent distress Lines, tubes and drains: peripheral HEENT: mucous membranes moist Neck: normal inspection Respiratory/Chest: on vent Cardiovascular/Chest: normal peripheral pulses, normal rate, regular rhythm Abdomen: soft, no organomegaly, no mass Extremities: normal inspection, no calf tenderness Skin Exam: warm/dry Neurologic: unresponsiveness Last 24 Hour Vital Signs Date Time Temp Pulse Resp B/P (MAP) Pulse Ox O2 Delivery O2 Flow Rate FiO2 11/01/19 17:07 70 18 100 11/01/19 16:13 100 11/01/19 15:00 78 18 153/53 (86) 95 11/01/19 14:44 94 Mechanical Ventilator 100 11/01/19 14:15 98.1 79 18 158/57 (90) 90 11/01/19 14:00 100 11/01/19 14:00 78 18 100 11/01/19 14:00 76 18 94 Mechanical Ventilator 100 11/01/19 12:00 Non-Rebreather 11/01/19 08:00 97.4 95 20 127/64 (85) 94 11/01/19 08:00 75 11/01/19 08:00 Non-Rebreather 11/01/19 04:00 Non-Rebreather 11/01/19 04:00 98.4 87 24 107/69 (82) 93 11/01/19 04:00 84 11/01/19 00:00 85 11/01/19 00:00 Non-Rebreather 11/01/19 00:00 102.9 87 24 151/74 (99) 95 10/31/19 21:30 79 173/54 10/31/19 20:14 96 Nasal Cannula 3.0 32 10/31/19 20:14 79 22 96 Nasal Cannula 3.0 32 10/31/19 20:00 99.1 78 24 173/54 (93) 96 10/31/19 20:00 76 10/31/19 20:00 Non-Rebreather 10/31/19 18:00 151/71 Intake and Output 10/31/19 11/01/19 19:00 07:00 Intake Total 250 ml 240 ml Output Total 475 ml 2400 ml Balance -225 ml -2160 ml Intake Oral 250 ml 240 ml Output Urine Total 475 ml 400 ml Hemodialysis UF 2000 ml Laboratory Tests Test 10/31/19 18:45 11/01/19 03:11 11/01/19 13:50 11/01/19 14:05 Troponin I 1.811 ng/mL (0.000-0.056) 1.583 ng/mL (0.000-0.056) Hepatitis B Surface Antigen Negative (NEGATIVE) White Blood Count 8.0 K/UL (4.8-10.8) Red Blood Count 2.90 M/UL (4.20-5.40) L Hemoglobin 9.0 G/DL (12.0-16.0) L Hematocrit 26.9 % (37.0-47.0) L Mean Corpuscular Volume 93 FL (80-99) Mean Corpuscular Hemoglobin 31.0 PG (27.0-31.0) Mean Corpuscular Hemoglobin Concent 33.4 G/DL (32.0-36.0) Red Cell Distribution Width 17.5 % (11.6-14.8) H Platelet Count 121 K/UL (150-450) L Mean Platelet Volume 7.4 FL (6.5-10.1) Neutrophils (%) (Auto) % (45.0-75.0) Lymphocytes (%) (Auto) % (20.0-45.0) Monocytes (%) (Auto) % (1.0-10.0) Eosinophils (%) (Auto) % (0.0-3.0) Basophils (%) (Auto) % (0.0-2.0) Differential Total Cells Counted 100 Neutrophils % (Manual) 95 % (45-75) H Lymphocytes % (Manual) 4 % (20-45) L Monocytes % (Manual) 1 % (1-10) Eosinophils % (Manual) 0 % (0-3) Basophils % (Manual) 0 % (0-2) Band Neutrophils 0 % (0-8) Platelet Estimate Decreased L Platelet Morphology Normal Anisocytosis 1+ Sodium Level 143 MMOL/L (136-145) 143 MMOL/L (136-145) Potassium Level 4.1 MMOL/L (3.5-5.1) 3.9 MMOL/L (3.5-5.1) Chloride Level 108 MMOL/L (98-107) H 107 MMOL/L (98-107) Carbon Dioxide Level 21 MMOL/L (21-32) 21 MMOL/L (21-32) Anion Gap 14 mmol/L (5-15) 15 mmol/L (5-15) Blood Urea Nitrogen 52 mg/dL (7-18) H 54 mg/dL (7-18) H Creatinine 3.8 MG/DL (0.55-1.30) H 4.3 MG/DL (0.55-1.30) H Estimat Glomerular Filtration Rate 14.5 mL/min (>60) 12.7 mL/min (>60) Glucose Level 218 MG/DL (74-106) H 302 MG/DL (74-106) H Calcium Level 8.5 MG/DL (8.5-10.1) 7.8 MG/DL (8.5-10.1) L Pro-B-Type Natriuretic Peptide > 75722 pg/mL (0-125) H Arterial Blood pH 7.282 (7.350-7.450) Arterial Blood Partial Pressure CO2 40.6 mmHg (35.0-45.0) Arterial Blood Partial Pressure O2 58.9 mmHg (75.0-100.0) L Arterial Blood HCO3 18.7 mmol/L (22.0-26.0) L Arterial Blood Oxygen Saturation 89.2 % (95-100) *L Arterial Blood Base Excess -7.4 (-2-2) L Karan Test Positive Test 11/01/19 15:50 White Blood Count 7.9 K/UL (4.8-10.8) Red Blood Count 2.82 M/UL (4.20-5.40) L Hemoglobin 8.5 G/DL (12.0-16.0) L Hematocrit 26.0 % (37.0-47.0) L Mean Corpuscular Volume 92 FL (80-99) Mean Corpuscular Hemoglobin 30.3 PG (27.0-31.0) Mean Corpuscular Hemoglobin Concent 32.8 G/DL (32.0-36.0) Red Cell Distribution Width 17.4 % (11.6-14.8) H Platelet Count 112 K/UL (150-450) L Mean Platelet Volume 8.9 FL (6.5-10.1) Neutrophils (%) (Auto) % (45.0-75.0) Lymphocytes (%) (Auto) % (20.0-45.0) Monocytes (%) (Auto) % (1.0-10.0) Eosinophils (%) (Auto) % (0.0-3.0) Basophils (%) (Auto) % (0.0-2.0) Neutrophils % (Manual) Pending Lymphocytes % (Manual) Pending Platelet Estimate Pending Platelet Morphology Pending Sodium Level 143 MMOL/L (136-145) Potassium Level 3.8 MMOL/L (3.5-5.1) Chloride Level 107 MMOL/L (98-107) Carbon Dioxide Level 20 MMOL/L (21-32) L Anion Gap 16 mmol/L (5-15) H Blood Urea Nitrogen 58 mg/dL (7-18) H Creatinine 4.3 MG/DL (0.55-1.30) H Estimat Glomerular Filtration Rate 12.7 mL/min (>60) Glucose Level 299 MG/DL (74-106) H Calcium Level 8.2 MG/DL (8.5-10.1) L Total Bilirubin 0.7 MG/DL (0.2-1.0) Aspartate Amino Transf (AST/SGOT) 335 U/L (15-37) H Alanine Aminotransferase (ALT/SGPT) 462 U/L (12-78) H Alkaline Phosphatase 191 U/L (46-116) H Total Protein 6.6 G/DL (6.4-8.2) Albumin 1.8 G/DL (3.4-5.0) L Globulin 4.8 g/dL Albumin/Globulin Ratio 0.4 (1.0-2.7) L Microbiology Date/Time Source Procedure Growth Status 10/31/19 22:15 Foot Right Gram Stain - Final Resulted 10/31/19 22:15 Foot Right Wound Culture Pending Resulted Height (Feet): 5 Height (Inches): 4.00 Weight (Pounds): 193 Medications Current Medications Medications (Trade) Dose Ordered Sig/Cb Route PRN Reason Start Time Stop Time Status Last Admin Dose Admin Acetaminophen/ Hydrocodone Bitart (Leverett 5/325) 1 tab Q6H PRN ORAL For Pain 11/01/19 14:37 11/08/19 14:36 Albuterol/ Ipratropium (Albuterol/ Ipratropium) 3 ml Q4H PRN HHN Shortness of Breath 11/01/19 14:36 11/06/19 14:35 Allopurinol (Zyloprim) 100 mg DAILY ORAL 11/02/19 09:00 11/29/19 08:59 Ascorbic Acid (Vitamin C) 500 mg DAILY ORAL 11/02/19 09:00 11/29/19 08:59 Atorvastatin Calcium (Lipitor) 40 mg BEDTIME ORAL 11/01/19 21:00 11/29/19 20:59 Clonidine HCl (Catapres tab) 0.2 mg BID ORAL 11/01/19 18:00 11/29/19 08:59 Dextrose (Dextrose 50%) 25 ml Q30M PRN IV Hypoglycemia 11/01/19 14:45 12/01/19 13:14 Dextrose (Dextrose 50%) 50 ml Q30M PRN IV Hypoglycemia 11/01/19 14:45 12/01/19 13:14 Epoetin Julio (Epoetin Julio(ESRD on dialysis)) 10,000 unit WED-WED-WED SUBQ 11/01/19 21:00 12/01/19 20:59 Insulin Aspart (NovoLOG) BEFORE MEALS AND HS SUBQ 11/01/19 16:30 12/01/19 16:29 Iron Sucrose 100 mg/Sodium Chloride 60 ml @ 240 mls/hr BEDTIME IV 11/01/19 21:00 11/04/19 21:14 Levetiracetam (Keppra) 500 mg Q12HR ORAL 11/01/19 21:00 11/29/19 20:59 Losartan Potassium (Cozaar) 100 mg DAILY ORAL 11/02/19 09:00 11/30/19 08:59 Multivitamins (Multivitamins) 1 tab DAILY ORAL 11/02/19 09:00 11/29/19 08:59 Norepinephrine Bitartrate 4 mg/ Dextrose 250 ml @ 0 mls/hr Q24H IV 11/01/19 14:32 12/01/19 14:31 Pantoprazole (Protonix) 40 mg DAILY IVP 11/02/19 09:00 12/02/19 08:59 Piperacillin Sod/ Tazobactam Sod 2.25 gm/Dextrose 55 ml @ 110 mls/hr Q8HR IVPB 11/01/19 22:00 11/06/19 21:59 Sevelamer Carbonate (Renvela) 800 mg THREE TIMES A DAY ORAL 11/01/19 18:00 11/30/19 17:59 Vancomycin HCl (Vanco rx to dose) 1 ea DAILY PRN MISC Per rx protocol 11/02/19 09:00 12/01/19 14:14 Vancomycin/Sodium Chloride 275 ml @ 183.333 mls/hr ONCE IVPB 11/01/19 18:00 11/01/19 20:00 Zinc Sulfate (Zinc Sulfate) 220 mg DAILY ORAL 11/02/19 09:00 11/29/19 08:59 Assessment/Plan Problem List: (1) Shock liver Assessment & Plan: Findings: Gallbladder is unremarkable, without stones, wall thickening, nor pericholecystic fluid. Sonographic Kang's sign is negative. Common bile duct measures 7 mm in diameter. No intrahepatic biliary ductal dilatation. Liver demonstrates normal echogenicity, no focal abnormality. Portal vein and hepatic veins are patent. Pancreas is unremarkable. Spleen is unremarkable. Left kidney measures 10.5 cm in length. Right kidney measures 9.8 cm length. Both kidneys demonstrate slightly increased echogenicity. There are bilateral cysts in the kidneys. There is no hydronephrosis. There is trace right pleural fluid. Abdominal aorta is partially obscured by bowel gas, visualized portions are non- aneurysmal . Impression: Negative for gallstones Minimally dilated common bile duct. Downstream obstruction not completely excludable. Correlate with liver function tests, consider MRCP for further evaluation if clinically indicated Slightly increased renal echogenicity bilaterally. Negative for hydronephrosis Trace right pleural fluid No acute surgical intervention planned resuscitate fluids trend labs ICD Codes: K72.00 - Acute and subacute hepatic failure without coma SNOMED: 003287675 (2) Sepsis Assessment & Plan: 64-year-old female multiple comorbidities altered level consciousness now in the intensive care unit on ventilator support. Liver functions noted likely related shock liver Ultrasound reviewed Abdominal exam benign Continue resuscitation HD as per nephrology KUB ordered Labs ordered Trend labs We will follow the recommendations thank you ICD Codes: A41.9 - Sepsis, unspecified organism SNOMED: 76320058, 890160552, [id number] Qualifiers: Qualified Codes: A41.9 - Sepsis, unspecified organism; R65.20 - Severe sepsis without septic shock; N17.9 - Acute kidney failure, unspecified (3) Decubitus skin ulcer Assessment & Plan: Pt presented on admission with full thickness stage 4 sacral pressure injury Base of wound is beefy red with macerated borders further extending into cleft of buttocks.Small amt sanguineous exudate.Periwound is excoriated.(L)3.5cm x (W)5cm x (D)0.2cm. Partial thickness stage 2 wound noted to medial upper L thigh. Base of wound is moist and viable. Edges adherent and flat with an extended elongated black border without induration or fluctuance that extends to posterior L upper thigh( L)0.5cm x (W)2.5cm. Unstageable pressure injury R heel. Base of wound is 100% soft necrosis.(L)2cm x (W)4.3cm. Non-blanching erythema with fluctuance. TMA R foot. Open surgical incision which extends well into plantar aspect is open. Base of wound has 90% slough,10% alyssa with rolled edges.(L)2cm x (W) 13.5cm. Second full thickness ulcer Plantar R foot that is in close proximity to surgical wound . Base of wound has 100% yellow slough . Borders are macerated. Small amt purulent exudate noted. Tx.Plan: Cleanse Sacral wound with Saline. Apply Moisture Barrier Paste.Cover with Optifoam drsg. Change every 3 days and prn. Wash Right foot with NS daily. Apply dakins 1/4 % gauze and dressings BID Reposition at least every 2hours or as tolerated. Off-load heels with pillow. APM/CHRISTELLE mattress overlay. ICD Codes: L89.90 - Pressure ulcer of unspecified site, unspecified stage SNOMED: 709303958 Thony Powers Nov 01, 2019 17:22
[2019-11-01] MEDS: NovoLOG Insulin Flexpen SUBQ SCH ×2 (17:39→21:00)
--- NOTE | 2019-11-01 17:50 | Diagnostic Imaging Report ---
Indication: Post nasogastric tube placement Technique: Supine view of the abdomen Comparison: none Findings: . There is a nasogastric tube, tip projected at the level gastric body, proximal port beyond the gastroesophageal junction. Bowel gas pattern is demonstrate prominent gas-filled small bowel loops, otherwise unremarkable. Large pelvic calcification probably represents a large old degenerated fibroid. There is a Peña catheter in place. Impression: Satisfactory nasogastric intubation Other findings as noted
[2019-11-01] MEDS ORDERED: Vancomycin 1.25gm/NS Premix q24h IVPB SCH (18:00)
--- NOTE | 2019-11-01 18:00 | NUR ---
NURSE NOTES: Husbands and friend at bedside. BS checked and Insulin given as per protocol. Pt is still not responding. No eye opening. Dr Alvarado here to see the patient. Updated him with pt's current condition. Dialysis nurse is getting ready at bedside.
--- NOTE | 2019-11-01 19:30 | NUR ---
HAND-OFF: Report given to Sharmaine Krishna RN.
--- NOTE | 2019-11-01 19:35 | NUR ---
NURSE NOTES: Report received from Alexandra ESCAMILLA.Pt resting quietly in bed,noted no resp distress or discomfort,noted starting to wake up,eyes slowly opening,orally intubated,ETT 7.5,lip line 24 cm, Vent settings :AC 18,TV 450,FIO2 100%,Peep 5,noted with clamped OGT, Peña cath in placed,with ongoing Hemodialysis,to RT IJ Haile Cath,IV site to RAC intact SR up x2 HOB elevated,bed lock in lowest position will continue with plans of care.
[2019-11-01] MEDS ORDERED: Carvedilol 12.5mg tab ORAL SCH (21:00)
[2019-11-01] MEDS ORDERED: Epoetin Alfa-EPBX(ESRD on dialysis)10,000 unit/ml vial SUBQ SCH ×2 (21:00)
--- NOTE | 2019-11-01 21:30 | NUR ---
NURSE NOTES: Ongoing Hemodialysis done,removed 2 L of fluid,HD tolerated,no distress presented,pt continue to sleep.
[2019-11-01] MEDS: Atorvastatin 20mg tab ORAL SCH (21:44)
[2019-11-01] MEDS: Iron Sucrose 100 MG in NS 55 ML IV SCH (21:44)
[2019-11-01] MEDS: Piperacillin/Tazobactam 2.25 GM in D5W 55 ML IVPB SCH (21:56)
[2019-11-01] MEDS ORDERED: Piperacillin/Tazobactam 2.25 GM in D5W 55 ML IVPB SCH (22:00)
--- NOTE | 2019-11-01 23:00 | NUR ---
NURSE NOTES: Pt asleep noted no distress stable V/S.
[2019-11-02] VITALS (42 sets, daily range): BP systolic 78–169; BP diastolic 35–136
--- NOTE | 2019-11-02 01:45 | Progress Note ---
DATE: 11/01/2019 SUBJECTIVE: This is elderly female who has cardiopulmonary arrest this morning secondary to fluid overload and acute renal failure. The patient for resuscitate was transferred to ICU. The patient currently nonverbal, intubated. Still looks swollen. OBJECTIVE: VITAL SIGNS: Blood pressure 149/46, pulse 69, respirations 18. HEENT: Eyes are closed. NECK: Supple. CHEST: Bilateral decreased breath sounds. CARDIOVASCULAR: Regular rhythm. No gallop. No murmur. ABDOMEN: Soft. Positive bowel sounds, nontender. EXTREMITIES: No edema. GENITOURINARY: Deferred. LABORATORY DATA: White count 7.9, hemoglobin 8.5, hematocrit 26, platelets are 112,000. Chemistry panel, sodium 143, potassium 3.8, BUN 58, creatinine 4.3, glucose is 299. Troponin 1.583. BNP was 95340. ASSESSMENT AND PLAN: 1. Acute cardiopulmonary arrest. 2. CHF. 3. End-stage renal disease. 4. History of hypertension. 5. Anemia. PLAN: We will currently NPO, IV fluids, vancomycin, and Zosyn. Continue bronchodilator treatment. Pulmonary, Cardiology is on consult. Discussed with the . The patient's prognosis is guarded. Mike Alvarado M.D. DR: NICHO JOB#: [id number] CC:
--- NOTE | 2019-11-02 02:00 | NUR ---
NURSE NOTES: Pt awake ,pulled out her heplock to RAC,mittens applied to Lt hand.
--- NOTE | 2019-11-02 04:35 | NUR ---
NURSE NOTES: Bed bath given,kept dry and clean, turned and repositioned
[2019-11-02 05:42] LABS: HEMATOCRIT 25.2 % (37.0-47.0); HEMOGLOBIN 8.7 G/DL (12.0-16.0); MEAN CORPUSCULAR VOLUME 91 FL (80-99); PLATELET COUNT 105 K/UL (150-450); RED BLOOD COUNT 2.76 M/UL (4.20-5.40); RED CELL DISTRIBUTION WIDTH 17.2 % (11.6-14.8); WHITE BLOOD COUNT 6.6 K/UL (4.8-10.8)
[2019-11-02] MEDS ORDERED: Rocuronium Bromide 50mg/5ml Inj IV ONE (06:20)
[2019-11-02] MEDS ORDERED: Etomidate 40mg/20ml Inj IV ONE (06:20)
[2019-11-02 06:24] LABS: ALANINE AMINOTRANSFERASE 420 U/L (12-78); ALBUMIN 1.7 G/DL (3.4-5.0); ALBUMIN/GLOBULIN RATIO 0.4 (1.0-2.7); ALKALINE PHOSPHATASE 204 U/L (46-116); ANION GAP 13 mmol/L (5-15); ASPARTATE AMINO TRANSFERASE 302 U/L (15-37); BILIRUBIN,TOTAL 0.8 MG/DL (0.2-1.0); BLOOD UREA NITROGEN 40 mg/dL (7-18); CALCIUM 8.2 MG/DL (8.5-10.1); CARBON DIOXIDE 25 MMOL/L (21-32); CHLORIDE 106 MMOL/L (98-107); CREATININE 3.6 MG/DL (0.55-1.30); POTASSIUM 3.4 MMOL/L (3.5-5.1); SODIUM 144 MMOL/L (136-145)
[2019-11-02] MEDS: NovoLOG Insulin Flexpen SUBQ SCH ×4 (06:30→21:30)
--- NOTE | 2019-11-02 06:35 | NUR ---
NURSE NOTES: Called Dr Wood to inform pt is a hard stick and okayed to use pigtail of RT LOAN villagomez.okayed also to apply wrist restraints if needed.
--- NOTE | 2019-11-02 06:41 | NUR ---
RESPIRATORY NOTE: Received pt on ETT 7.5@ 24cm lip line with vent with settings of AC 18 450ml FIO2 100% PEEP 7, saturates at 94%. Pt is resting in bed, awake, alert and able to follow commands. No SOB or resp distress noted. Breath sounds are Rhonchi bilaterally and sxn minimal to small amount of thin salazar brown secretions. Pt is desat to low 80s and yocasta down to low 40s when suction. It takes a while to bring the saturation and heart back to normal range. ANDI Bey made aware. Vent is plugged into the red outlet and alarms are on and audible. Ambu bag is at bedside. Will continue to monitor. Addendum: 11/02/19 at 1737 by Kane Perez RT saturation is 91% on 100%FiO2 peep 7. Will minimize endotracheal suction pt due to bradycardia happen when suction.
[2019-11-02] MEDS: Piperacillin/Tazobactam 2.25 GM in D5W 55 ML IVPB SCH ×2 (06:48→14:11)
--- NOTE | 2019-11-02 07:15 | NUR ---
HAND-OFF: Report given to Alexandra PEÑA.
--- NOTE | 2019-11-02 07:16 | NUR ---
NURSE NOTES: Report received from Sharmaine Krihsna RN. Pt is awake and oriented x3-4. Able to answer for questions and follow commands. Sinus rhythm on monitor technician. ETT 7.5/24cm at mid lip line. AC 18, TV 450, P 7, FiO2 100%. O2 sat 82-86%. Temp 101.8 orally. Will start cooling measures. Peña in place. Right IJ Haile with pigtail for HD noted. Bed in lowest position. Side rails up x3. Seizure precaution continued. Will resume plan of care.
--- NOTE | 2019-11-02 08:00 | NUR ---
NURSE NOTES: Temp 101.8 orally. Cooling measures initiated.
[2019-11-02] MEDS: Renvela 800mg Pkt ORAL SCH ×3 (08:48→18:00)
--- NOTE | 2019-11-02 08:55 | NUR ---
NURSE NOTES: O2 sat is still 82-86% on FiO2 100%. RT manually bagged the patient. O2 sat went up to max 94%. Will notify .
--- NOTE | 2019-11-02 08:55 | NUR ---
RESPIRATORY NOTE: Pt is desat to low 80s, bagged pt via ambu bag 15L 100% with peep valve of 10, saturation up to 91%, placed back on vent with the same settings, pt desat again to 85-86%. ANDI Bey at bedside and aware. Awaiting for Dr. Matos's order. Will continue to monitor pt closely.
[2019-11-02] MEDS ORDERED: Zinc Sulfate 220mg cap ORAL SCH (09:00)
[2019-11-02] MEDS ORDERED: Ascorbic Acid 500mg tab ORAL SCH (09:00)
[2019-11-02] MEDS ORDERED: Pantoprazole Inj IVP SCH ×2 (09:00)
[2019-11-02] MEDS ORDERED: Losartan 50mg tab ORAL SCH (09:00)
[2019-11-02] MEDS ORDERED: Vancomycin 1gm in D5W 275ml IVPB SCH (09:00)
[2019-11-02] MEDS ORDERED: Allopurinol 100mg Tab ORAL SCH (09:00)
[2019-11-02] MEDS: cloNIDine 0.2mg Tab ORAL SCH ×2 (09:00→18:00)
--- NOTE | 2019-11-02 09:07 | NUR ---
NURSE NOTES: Temp 100.[address] Alvarado here to see the patient. Updated him with pt's current condition including fever and low saturation. Order for ABG and feeding received, noted, and carried out.
--- NOTE | 2019-11-02 09:37 | NUR ---
NURSE NOTES: Called Dr Bower for ABG result. He will get there within 15 minutes.
--- NOTE | 2019-11-02 09:49 | Nephrology Progress Note ---
Assessment/Plan Assessment 1.HEIDI 2.CKD 3.Respiratory failure 4.fever 5.NSTEMI 6.s/p code blue 7.hypocalcemia 8.hypokalemia Plan 1.DIALYSIS today 2.monitoring renal function 3.avoid NSIAD 4.HTN 5.d/c lasix Subjective ROS Limited/Unobtainable: Yes Subjective s/p code blue intubation and transferring t icu she had dialysis and removed 2 litter she is alert and awake open her eyes and fallows command Objective Objective Last 24 Hour Vital Signs Date Time Temp Pulse Resp B/P (MAP) Pulse Ox O2 Delivery O2 Flow Rate FiO2 11/02/19 08:00 101.8 81 23 150/60 (90) 84 11/02/19 07:00 83 22 168/48 (88) 93 11/02/19 06:41 79 25 100 11/02/19 06:00 81 24 156/62 (93) 92 11/02/19 05:30 80 24 100 11/02/19 05:00 79 22 128/75 (92) 93 11/02/19 04:00 78 11/02/19 04:00 99.7 81 152/62 (92) 11/02/19 03:52 82 18 97 Mechanical Ventilator 100 80 18 92 11/02/19 03:30 72 20 100 11/02/19 03:00 77 22 130/100 (110) 93 11/02/19 02:00 75 21 151/49 (83) 95 11/02/19 01:30 76 22 100 11/02/19 01:00 72 19 144/50 (81) 97 11/02/19 00:00 98.6 74 19 140/56 (84) 97 11/02/19 00:00 72 11/01/19 23:23 71 22 100 11/01/19 22:45 71 22 143/79 (100) 99 11/01/19 22:30 72 21 145/65 (91) 97 11/01/19 22:15 70 21 149/48 (81) 100 11/01/19 22:00 71 20 144/84 (104) 98 11/01/19 21:45 70 21 152/64 (93) 100 11/01/19 21:30 71 23 145/44 (77) 96 11/01/19 21:30 60 21 100 11/01/19 21:15 72 19 144/61 (88) 96 11/01/19 21:00 71 21 143/48 (79) 95 11/01/19 20:45 66 21 131/103 (112) 93 11/01/19 20:31 71 19 99 Mechanical Ventilator 100 11/01/19 20:31 93 Mechanical Ventilator 100 11/01/19 20:30 66 20 134/108 (117) 94 11/01/19 20:15 65 20 148/49 (82) 95 11/01/19 20:00 98.9 67 19 144/53 (83) 96 11/01/19 20:00 67 11/01/19 20:00 Mechanical Ventilator 11/01/19 19:30 66 23 100 11/01/19 19:00 66 13 150/50 (83) 100 11/01/19 18:00 69 18 149/46 (80) 100 11/01/19 18:00 69 18 149/46 (80) 100 11/01/19 17:07 70 18 100 11/01/19 17:00 69 14 152/49 (83) 100 11/01/19 16:13 100 11/01/19 16:00 69 11/01/19 16:00 70 16 150/51 (84) 100 11/01/19 16:00 Mechanical Ventilator 11/01/19 15:00 78 18 153/53 (86) 95 11/01/19 14:44 94 Mechanical Ventilator 100 11/01/19 14:15 Mechanical Ventilator 11/01/19 14:15 98.1 79 18 158/57 (90) 90 11/01/19 14:00 70 11/01/19 14:00 100 11/01/19 14:00 78 18 100 11/01/19 14:00 76 18 94 Mechanical Ventilator 100 11/01/19 12:00 Non-Rebreather Intake and Output 11/01/19 11/02/19 19:00 07:00 Intake Total 2275.000 ml Output Total 30 ml 70 ml Balance -30 ml 2205.000 ml IV Total 275.000 ml Hemodialysis 2000 ml Output Urine Total 30 ml 70 ml Laboratory Tests 11/01/19 13:50: Sodium Level 143, Potassium Level 3.9, Chloride Level 107, Carbon Dioxide Level 21, Anion Gap 15, Blood Urea Nitrogen 54H, Creatinine 4.3H, Estimat Glomerular Filtration Rate 12.7, Glucose Level 302H, Calcium Level 7.8L 11/01/19 14:05: Arterial Blood pH 7.282L, Arterial Blood Partial Pressure CO2 40.6, Arterial Blood Partial Pressure O2 58.9L, Arterial Blood HCO3 18.7L, Arterial Blood Oxygen Saturation 89.2*L, Arterial Blood Base Excess -7.4L, Karan Test Positive 11/01/19 15:50: Sodium Level 143, Potassium Level 3.8, Chloride Level 107, Carbon Dioxide Level 20L, Anion Gap 16H, Blood Urea Nitrogen 58H, Creatinine 4.3H, Estimat Glomerular Filtration Rate 12.7, Glucose Level 299H, Calcium Level 8.2L, White Blood Count 7.9, Red Blood Count 2.82L, Hemoglobin 8.5L, Hematocrit 26.0L, Mean Corpuscular Volume 92, Mean Corpuscular Hemoglobin 30.3, Mean Corpuscular Hemoglobin Concent 32.8, Red Cell Distribution Width 17.4H, Platelet Count 112L , Mean Platelet Volume 8.9, Neutrophils (%) (Auto) , Lymphocytes (%) (Auto) , Monocytes (%) (Auto) , Eosinophils (%) (Auto) , Basophils (%) (Auto) , Differential Total Cells Counted 100, Neutrophils % (Manual) 97H, Lymphocytes % (Manual) 2L, Monocytes % (Manual) 1, Eosinophils % (Manual) 0, Basophils % ( Manual) 0, Band Neutrophils 0, Platelet Estimate DecreasedL, Platelet Morphology Normal, Anisocytosis 1+, Total Bilirubin 0.7, Aspartate Amino Transf (AST/SGOT) 335H, Alanine Aminotransferase (ALT/SGPT) 462H, Alkaline Phosphatase 191H, Total Protein 6.6, Albumin 1.8L, Globulin 4.8, Albumin/Globulin Ratio 0.4L 11/02/19 03:25: Sodium Level 144, Potassium Level 3.4L, Chloride Level 106, Carbon Dioxide Level 25, Anion Gap 13, Blood Urea Nitrogen 40H, Creatinine 3.6H, Estimat Glomerular Filtration Rate 15.5, Glucose Level 177#H, Calcium Level 8.2L, White Blood Count 6.6, Red Blood Count 2.76L, Hemoglobin 8.7L, Hematocrit 25.2L, Mean Corpuscular Volume 91, Mean Corpuscular Hemoglobin 31.4H, Mean Corpuscular Hemoglobin Concent 34.4, Red Cell Distribution Width 17.2H, Platelet Count 105L , Mean Platelet Volume 7.6, Neutrophils (%) (Auto) , Lymphocytes (%) (Auto) , Monocytes (%) (Auto) , Eosinophils (%) (Auto) , Basophils (%) (Auto) , Total Bilirubin 0.8, Aspartate Amino Transf (AST/SGOT) 302H, Alanine Aminotransferase (ALT/SGPT) 420H, Alkaline Phosphatase 204H, Total Protein 6.5, Albumin 1.7L, Globulin 4.8, Albumin/Globulin Ratio 0.4L, Hemoglobin A1c 8.0H, Random Vancomycin Level 9.7 11/02/19 09:15: Arterial Blood pH 7.381, Arterial Blood Partial Pressure CO2 43.3, Arterial Blood Partial Pressure O2 45.3*L, Arterial Blood HCO3 25.1, Arterial Blood Oxygen Saturation 78.7*L, Arterial Blood Base Excess -0.1, Karan Test Positive Height (Feet): 5 Height (Inches): 4.00 Weight (Pounds): 193 Objective HEAD AND NECK: No JVP. No LAD. No thyromegaly. Extraocular movements intact. Pupils are reactive to light and accommodation. LUNGS: Bilateral crackles and diffuse wheezing. CARDIAC: Regular rate and rhythm. S1-S2 tachy. No murmur. No rub. ABDOMEN: Soft, nontender, nondistended. EXTREMITIES: Status post toe amputation and has 2+ edema. No clubbing. No cyanosis. Waleska Pyle MD Nov 02, 2019 09:49
--- NOTE | 2019-11-02 09:55 | NUR ---
NURSE NOTES: Dr Pyle and Aguila here to see the patient. Order for dialysis for today noted. Called [facility] for HD today. Notified Dr Bower regarding ABG result and low O2 sat. Order to change peep to 10 received, noted, and carried out. Notified RT.
--- NOTE | 2019-11-02 09:55 | NUR ---
RESPIRATORY NOTE: Increase Peep to [address] Bower's order due to low saturation. Pt still saturates at 85-86% on 100% FiO2 peep 10. Dr. Bower at bedside and aware of the low saturation. RN Rosangela Bey and RACHEL Leiva also aware. Will continue to monitor.
--- NOTE | 2019-11-02 10:38 | NUR ---
CLIENT ADVISORFUEL VERIFICATION TECHNICIAN SI: S/P CODE BLUE ETT/VENT SUPPORT T. 101.8 HR 81 RR 23 B/P 150/60 AC 18 TV 450 FIO2 100% PEEP 7 ABD US= NEGATIVE FOR GALLSTONES IS: VANCO IV ZOSYN IV IRON IV ICU STATUS
--- NOTE | 2019-11-02 11:09 | NUR ---
RD ASSESSMENT & RECOMMENDATIONS SEE CARE ACTIVITY FOR COMPLETE ASSESSMENT DAILY ESTIMATED NEEDS: Needs based on HEIDI + HD, Wounds, now critical care/ 62.8kg abw 25-30 kcals/kg 9153-2866 total kcals 1.25-1.8 g protein/kg 78-113 g total protein Fluids per MD NUTRITION DIAGNOSIS: * Increased kcal/prot needs R/T wound healing, on HD as evidenced by admitted w/ multiple wounds including full thickness wounds @ sacrum and plantar R foot, partial thickness wound @ medial upper L thigh, unstageable wound @ R heel, admitted w/ HEIDI, s/p urgent HD. * Altered nutrition related lab values R/T h/o DM and HEIDI as evidenced by elev BGs ([phone]), elev creat (5.0 -> 3.8), elev K (6.0 -> wnl), elev phos (5.2), elev BNP >10576. CURRENT TF: Nepro @20ml/hr ENTERAL NUTRITION RECOMMENDATIONS: As medically able, rec goal of NEPRO @40ml/hr x24 hrs + Prosource qd to provide 960ml, 1728 kcal, 78g + 11g pro, 698ml ree H2O - As medically able, rec to advance TF by 10ml/hr q4-6 hrs to goal of 40ml/hr x24 hrs - Add Prosource qdaily via OGT to better meet est pro needs for HD and wound care - Flush per MD, HOB over 30 degrees for feeds. ADDITIONAL RECOMMENDATIONS: * Calibrated bedscale wt- w/ added P200 mattress + pump * Monitor for continuity of HD (first HD on 10/31) * Rec NISS- h/o DM, w/ hyperglycemia * Wound healing: Add Denilson 1pkt BID Continue MVI / Vit C per Nephro MD * TF recs as above as medically able .
--- NOTE | 2019-11-02 11:25 | NUR ---
NURSE NOTES: Dr Toribio here to see the patient. Updated him with pt's current condition. Order to change tube feeding rate to 35cc/hr. Order noted and carried out.
--- NOTE | 2019-11-02 11:27 | General Progress Note ---
Assessment/Plan Status: unchanged Assessment/Plan: Problems: (1) Shock liver ICD Codes: K72.00 - Acute and subacute hepatic failure without coma SNOMED: 509106601 (2) Elevated troponin ICD Codes: R79.89 - Other specified abnormal findings of blood chemistry SNOMED: 965228180, [id number], [id number] (3) Profound anemia (4) UTI Assessment/Plan Patient will need endoscopy and colonoscopy to evaluate anemia at some point, but will require cardiac clearance given elevated troponin levels. Monitor H&H, as needed transfusions >> patient status post 2 units of packed RBCs sudden spike in LFTs most likely 2/2 to shock liver, trend LFTs Occult blood stool to evaluate GI bleed Anemia work-up fu cardio and nephro recommendations Electrolyte correction PPI abx per ID will start ngtf today we will follow along on a daily basis with any additional recommendations Subjective ROS Limited/Unobtainable: No Allergies: Coded Allergies: No Known Allergies (Unverified , 08/03/19) Objective Last 24 Hour Vital Signs Date Time Temp Pulse Resp B/P (MAP) Pulse Ox O2 Delivery O2 Flow Rate FiO2 11/02/19 11:00 75 20 124/59 (80) 85 11/02/19 11:00 75 22 143/48 (79) 84 11/02/19 10:51 75 26 100 11/02/19 10:00 75 22 143/48 (79) 84 11/02/19 09:55 100 11/02/19 09:00 100.1 79 24 137/49 (78) 86 11/02/19 08:55 82 26 100 11/02/19 08:00 101.8 81 23 150/60 (90) 84 11/02/19 07:00 83 22 168/48 (88) 93 11/02/19 06:41 79 25 100 11/02/19 06:00 81 24 156/62 (93) 92 11/02/19 05:30 80 24 100 11/02/19 05:00 79 22 128/75 (92) 93 11/02/19 04:00 78 11/02/19 04:00 99.7 81 152/62 (92) 11/02/19 03:52 82 18 97 Mechanical Ventilator 100 80 18 92 11/02/19 03:30 72 20 100 11/02/19 03:00 77 22 130/100 (110) 93 1/30/20 02:00 75 21 151/49 (83) 95 11/02/19 01:30 76 22 100 11/02/19 01:00 72 19 144/50 (81) 97 11/02/19 00:00 98.6 74 19 140/56 (84) 97 11/02/19 00:00 72 11/01/19 23:23 71 22 100 11/01/19 22:45 71 22 143/79 (100) 99 11/01/19 22:30 72 21 145/65 (91) 97 11/01/19 22:15 70 21 149/48 (81) 100 11/01/19 22:00 71 20 144/84 (104) 98 11/01/19 21:45 70 21 152/64 (93) 100 11/01/19 21:30 71 23 145/44 (77) 96 11/01/19 21:30 60 21 100 11/01/19 21:15 72 19 144/61 (88) 96 11/01/19 21:00 71 21 143/48 (79) 95 11/01/19 20:45 66 21 131/103 (112) 93 11/01/19 20:31 71 19 99 Mechanical Ventilator 100 11/01/19 20:31 93 Mechanical Ventilator 100 11/01/19 20:30 66 20 134/108 (117) 94 11/01/19 20:15 65 20 148/49 (82) 95 11/01/19 20:00 98.9 67 19 144/53 (83) 96 11/01/19 20:00 67 11/01/19 20:00 Mechanical Ventilator 11/01/19 19:30 66 23 100 11/01/19 19:00 66 13 150/50 (83) 100 11/01/19 18:00 69 18 149/46 (80) 100 11/01/19 18:00 69 18 149/46 (80) 100 11/01/19 17:07 70 18 100 11/01/19 17:00 69 14 152/49 (83) 100 11/01/19 16:13 100 11/01/19 16:00 69 11/01/19 16:00 70 16 150/51 (84) 100 11/01/19 16:00 Mechanical Ventilator 11/01/19 15:00 78 18 153/53 (86) 95 11/01/19 14:44 94 Mechanical Ventilator 100 11/01/19 14:15 Mechanical Ventilator 11/01/19 14:15 98.1 79 18 158/57 (90) 90 11/01/19 14:00 70 11/01/19 14:00 100 11/01/19 14:00 78 18 100 11/01/19 14:00 76 18 94 Mechanical Ventilator 100 11/01/19 12:00 Non-Rebreather Intake and Output 11/01/19 11/02/19 19:00 07:00 Intake Total 2275.000 ml Output Total 30 ml 70 ml Balance -30 ml 2205.000 ml IV Total 275.000 ml Hemodialysis 2000 ml Output Urine Total 30 ml 70 ml Laboratory Tests 11/01/19 13:50: Sodium Level 143, Potassium Level 3.9, Chloride Level 107, Carbon Dioxide Level 21, Anion Gap 15, Blood Urea Nitrogen 54H, Creatinine 4.3H, Estimat Glomerular Filtration Rate 12.7, Glucose Level 302H, Calcium Level 7.8L 11/01/19 14:05: Arterial Blood pH 7.282L, Arterial Blood Partial Pressure CO2 40.6, Arterial Blood Partial Pressure O2 58.9L, Arterial Blood HCO3 18.7L, Arterial Blood Oxygen Saturation 89.2*L, Arterial Blood Base Excess -7.4L, Karan Test Positive 11/01/19 15:50: Sodium Level 143, Potassium Level 3.8, Chloride Level 107, Carbon Dioxide Level 20L, Anion Gap 16H, Blood Urea Nitrogen 58H, Creatinine 4.3H, Estimat Glomerular Filtration Rate 12.7, Glucose Level 299H, Calcium Level 8.2L, White Blood Count 7.9, Red Blood Count 2.82L, Hemoglobin 8.5L, Hematocrit 26.0L, Mean Corpuscular Volume 92, Mean Corpuscular Hemoglobin 30.3, Mean Corpuscular Hemoglobin Concent 32.8, Red Cell Distribution Width 17.4H, Platelet Count 112L , Mean Platelet Volume 8.9, Neutrophils (%) (Auto) , Lymphocytes (%) (Auto) , Monocytes (%) (Auto) , Eosinophils (%) (Auto) , Basophils (%) (Auto) , Differential Total Cells Counted 100, Neutrophils % (Manual) 97H, Lymphocytes % (Manual) 2L, Monocytes % (Manual) 1, Eosinophils % (Manual) 0, Basophils % ( Manual) 0, Band Neutrophils 0, Platelet Estimate DecreasedL, Platelet Morphology Normal, Anisocytosis 1+, Total Bilirubin 0.7, Aspartate Amino Transf (AST/SGOT) 335H, Alanine Aminotransferase (ALT/SGPT) 462H, Alkaline Phosphatase 191H, Total Protein 6.6, Albumin 1.8L, Globulin 4.8, Albumin/Globulin Ratio 0.4L 11/02/19 03:25: Sodium Level 144, Potassium Level 3.4L, Chloride Level 106, Carbon Dioxide Level 25, Anion Gap 13, Blood Urea Nitrogen 40H, Creatinine 3.6H, Estimat Glomerular Filtration Rate 15.5, Glucose Level 177#H, Calcium Level 8.2L, White Blood Count 6.6, Red Blood Count 2.76L, Hemoglobin 8.7L, Hematocrit 25.2L, Mean Corpuscular Volume 91, Mean Corpuscular Hemoglobin 31.4H, Mean Corpuscular Hemoglobin Concent 34.4, Red Cell Distribution Width 17.2H, Platelet Count 105L , Mean Platelet Volume 7.6, Neutrophils (%) (Auto) , Lymphocytes (%) (Auto) , Monocytes (%) (Auto) , Eosinophils (%) (Auto) , Basophils (%) (Auto) , Total Bilirubin 0.8, Aspartate Amino Transf (AST/SGOT) 302H, Alanine Aminotransferase (ALT/SGPT) 420H, Alkaline Phosphatase 204H, Total Protein 6.5, Albumin 1.7L, Globulin 4.8, Albumin/Globulin Ratio 0.4L, Hemoglobin A1c 8.0H, Random Vancomycin Level 9.7 11/02/19 09:15: Arterial Blood pH 7.381, Arterial Blood Partial Pressure CO2 43.3, Arterial Blood Partial Pressure O2 45.3*L, Arterial Blood HCO3 25.1, Arterial Blood Oxygen Saturation 78.7*L, Arterial Blood Base Excess -0.1, Karan Test Positive 11/02/19 10:35: D-Dimer [Pending] Height (Feet): 5 Height (Inches): 4.00 Weight (Pounds): 193 General Appearance: lethargic EENT: normal ENT inspection Neck: supple Cardiovascular: normal rate Respiratory/Chest: decreased breath sounds Abdomen: normal bowel sounds, non tender, soft Extremities: other - right toe amputation Davi Toribio MD Nov 02, 2019 11:26
--- NOTE | 2019-11-02 11:35 | Diagnostic Imaging Report ---
Indication: Dyspnea Technique: One view of the chest Comparison: 11/01/2019 Findings: Bilateral interstitial and airspace infiltrates versus edema appears slightly increased, with some shifting of consolidation. Interim placement of a nasogastric tube, tip of which projects beyond the edge of the image, demonstrated to be in good position on recent abdominal radiograph. Other tube and line positions are stable, satisfactory. Impression: Over one day, slight worsening of bilateral interstitial and airspace infiltrates versus edema. Stable cardiomegaly Satisfactory nasogastric intubation
--- NOTE | 2019-11-02 11:51 | Podiatric Progress Note ---
Assessment/Plan Patient Christal Concepcion is a 64 year old female who was admitted on Oct 29, 2019 at 19:21 with Problems: (1) Peripheral angiopathy (2) Peripheral vascular disease (3) Ulcer of amputation stump of foot (4) Foot ulceration (5) UTI (urinary tract infection) (6) Renal failure (7) Elevated troponin Assessment/Plan R foot ulceration surgical debridement of distal and plantar ulceration utilizing sharp instrument to the level of subq. order was written for Xeroform to distal and planar ulcers and Santyl to R Heel. Patient will be followed Subjective Reason for consult R foot ulcer Allergies: Coded Allergies: No Known Allergies (Unverified , 08/03/19) Subjective Patient seen in ICU for R foot ulcer. Patient is s/p R foot TMA which has dehisced. Objective Exam Last 24 Hour Vital Signs Date Time Temp Pulse Resp B/P (MAP) Pulse Ox O2 Delivery O2 Flow Rate FiO2 11/02/19 11:00 75 20 124/59 (80) 85 11/02/19 11:00 75 22 143/48 (79) 84 11/02/19 10:51 75 26 100 11/02/19 10:00 75 22 143/48 (79) 84 11/02/19 09:55 100 11/02/19 09:00 100.1 79 24 137/49 (78) 86 11/02/19 08:55 82 26 100 11/02/19 08:00 101.8 81 23 150/60 (90) 84 11/02/19 07:00 83 22 168/48 (88) 93 11/02/19 06:41 79 25 100 11/02/19 06:00 81 24 156/62 (93) 92 11/02/19 05:30 80 24 100 11/02/19 05:00 79 22 128/75 (92) 93 11/02/19 04:00 78 11/02/19 04:00 99.7 81 152/62 (92) 11/02/19 03:52 82 18 97 Mechanical Ventilator 100 80 18 92 11/02/19 03:30 72 20 100 11/02/19 03:00 77 22 130/100 (110) 93 11/02/19 02:00 75 21 151/49 (83) 95 11/02/19 01:30 76 22 100 11/02/19 01:00 72 19 144/50 (81) 97 11/02/19 00:00 98.6 74 19 140/56 (84) 97 11/02/19 00:00 72 11/01/19 23:23 71 22 100 11/01/19 22:45 71 22 143/79 (100) 99 11/01/19 22:30 72 21 145/65 (91) 97 11/01/19 22:15 70 21 149/48 (81) 100 11/01/19 22:00 71 20 144/84 (104) 98 11/01/19 21:45 70 21 152/64 (93) 100 11/01/19 21:30 71 23 145/44 (77) 96 11/01/19 21:30 60 21 100 11/01/19 21:15 72 19 144/61 (88) 96 11/01/19 21:00 71 21 143/48 (79) 95 11/01/19 20:45 66 21 131/103 (112) 93 11/01/19 20:31 71 19 99 Mechanical Ventilator 100 11/01/19 20:31 93 Mechanical Ventilator 100 11/01/19 20:30 66 20 134/108 (117) 94 11/01/19 20:15 65 20 148/49 (82) 95 11/01/19 20:00 98.9 67 19 144/53 (83) 96 11/01/19 20:00 67 11/01/19 20:00 Mechanical Ventilator 11/01/19 19:30 66 23 100 11/01/19 19:00 66 13 150/50 (83) 100 11/01/19 18:00 69 18 149/46 (80) 100 11/01/19 18:00 69 18 149/46 (80) 100 11/01/19 17:07 70 18 100 11/01/19 17:00 69 14 152/49 (83) 100 11/01/19 16:13 100 11/01/19 16:00 69 11/01/19 16:00 70 16 150/51 (84) 100 11/01/19 16:00 Mechanical Ventilator 11/01/19 15:00 78 18 153/53 (86) 95 11/01/19 14:44 94 Mechanical Ventilator 100 11/01/19 14:15 Mechanical Ventilator 11/01/19 14:15 98.1 79 18 158/57 (90) 90 11/01/19 14:00 70 11/01/19 14:00 100 11/01/19 14:00 78 18 100 11/01/19 14:00 76 18 94 Mechanical Ventilator 100 11/01/19 12:00 Non-Rebreather Laboratory Tests Test 11/01/19 13:50 11/01/19 14:05 11/01/19 15:50 11/02/19 03:25 Sodium Level 143 MMOL/L (136-145) 143 MMOL/L (136-145) 144 MMOL/L (136-145) Potassium Level 3.9 MMOL/L (3.5-5.1) 3.8 MMOL/L (3.5-5.1) 3.4 MMOL/L (3.5-5.1) L Chloride Level 107 MMOL/L (98-107) 107 MMOL/L (98-107) 106 MMOL/L (98-107) Carbon Dioxide Level 21 MMOL/L (21-32) 20 MMOL/L (21-32) L 25 MMOL/L (21-32) Anion Gap 15 mmol/L (5-15) 16 mmol/L (5-15) H 13 mmol/L (5-15) Blood Urea Nitrogen 54 mg/dL (7-18) H 58 mg/dL (7-18) H 40 mg/dL (7-18) H Creatinine 4.3 MG/DL (0.55-1.30) H 4.3 MG/DL (0.55-1.30) H 3.6 MG/DL (0.55-1.30) H Estimat Glomerular Filtration Rate 12.7 mL/min (>60) 12.7 mL/min (>60) 15.5 mL/min (>60) Glucose Level 302 MG/DL (74-106) H 299 MG/DL (74-106) H 177 MG/DL (74-106) #H Calcium Level 7.8 MG/DL (8.5-10.1) L 8.2 MG/DL (8.5-10.1) L 8.2 MG/DL (8.5-10.1) L Arterial Blood pH 7.282 (7.350-7.450) Arterial Blood Partial Pressure CO2 40.6 mmHg (35.0-45.0) Arterial Blood Partial Pressure O2 58.9 mmHg (75.0-100.0) L Arterial Blood HCO3 18.7 mmol/L (22.0-26.0) L Arterial Blood Oxygen Saturation 89.2 % (95-100) *L Arterial Blood Base Excess -7.4 (-2-2) L Karan Test Positive White Blood Count 7.9 K/UL (4.8-10.8) 6.6 K/UL (4.8-10.8) Red Blood Count 2.82 M/UL (4.20-5.40) L 2.76 M/UL (4.20-5.40) L Hemoglobin 8.5 G/DL (12.0-16.0) L 8.7 G/DL (12.0-16.0) L Hematocrit 26.0 % (37.0-47.0) L 25.2 % (37.0-47.0) L Mean Corpuscular Volume 92 FL (80-99) 91 FL (80-99) Mean Corpuscular Hemoglobin 30.3 PG (27.0-31.0) 31.4 PG (27.0-31.0) H Mean Corpuscular Hemoglobin Concent 32.8 G/DL (32.0-36.0) 34.4 G/DL (32.0-36.0) Red Cell Distribution Width 17.4 % (11.6-14.8) H 17.2 % (11.6-14.8) H Platelet Count 112 K/UL (150-450) L 105 K/UL (150-450) L Mean Platelet Volume 8.9 FL (6.5-10.1) 7.6 FL (6.5-10.1) Neutrophils (%) (Auto) % (45.0-75.0) % (45.0-75.0) Lymphocytes (%) (Auto) % (20.0-45.0) % (20.0-45.0) Monocytes (%) (Auto) % (1.0-10.0) % (1.0-10.0) Eosinophils (%) (Auto) % (0.0-3.0) % (0.0-3.0) Basophils (%) (Auto) % (0.0-2.0) % (0.0-2.0) Differential Total Cells Counted 100 Neutrophils % (Manual) 97 % (45-75) H Lymphocytes % (Manual) 2 % (20-45) L Monocytes % (Manual) 1 % (1-10) Eosinophils % (Manual) 0 % (0-3) Basophils % (Manual) 0 % (0-2) Band Neutrophils 0 % (0-8) Platelet Estimate Decreased L Platelet Morphology Normal Anisocytosis 1+ Total Bilirubin 0.7 MG/DL (0.2-1.0) 0.8 MG/DL (0.2-1.0) Aspartate Amino Transf (AST/SGOT) 335 U/L (15-37) H 302 U/L (15-37) H Alanine Aminotransferase (ALT/SGPT) 462 U/L (12-78) H 420 U/L (12-78) H Alkaline Phosphatase 191 U/L (46-116) H 204 U/L (46-116) H Total Protein 6.6 G/DL (6.4-8.2) 6.5 G/DL (6.4-8.2) Albumin 1.8 G/DL (3.4-5.0) L 1.7 G/DL (3.4-5.0) L Globulin 4.8 g/dL 4.8 g/dL Albumin/Globulin Ratio 0.4 (1.0-2.7) L 0.4 (1.0-2.7) L Hemoglobin A1c 8.0 % (4.3-6.0) H Random Vancomycin Level 9.7 ug/mL Test 11/02/19 09:15 11/02/19 10:35 Arterial Blood pH 7.381 (7.350-7.450) Arterial Blood Partial Pressure CO2 43.3 mmHg (35.0-45.0) Arterial Blood Partial Pressure O2 45.3 mmHg (75.0-100.0) Arterial Blood HCO3 25.1 mmol/L (22.0-26.0) Arterial Blood Oxygen Saturation 78.7 % (95-100) *L Arterial Blood Base Excess -0.1 (-2-2) Karan Test Positive D-Dimer Pending Microbiology Date/Time Source Procedure Growth Status 10/30/19 21:00 Blood Blood Culture - Preliminary NO GROWTH AFTER 48 HOURS Resulted 10/30/19 00:00 Nasal Nares MRSA Culture - Final NO METHICILLIN RESISTANT STAPH AUREUS... Complete 10/29/19 21:20 Urine,Clean Catch Urine Culture - Final Proteus Mirabilis Complete 10/31/19 22:15 Foot Right Gram Stain - Final Resulted 10/31/19 22:15 Foot Right Wound Culture - Preliminary Resulted Musculoskeletal Muscle strength grading: grade 3 - muscle strength of Assistive devices: other Vascular Pulses: 0 dorsalis pedis (R), 0 dorsalis pedis (L), 0 posterior tibial (R), 0 posterior tibial (L) Edema: 1+ (<2mm) foot (L), 1+ (<2mm) ankle (L) Temperature: within normal limits Dermatological Dermatological Narrative R foot s/p TMA noted ulceration at the stump probing to subq. no drainage or discharge is seen no pus. no erythema or cellulitis seen stable., no mal odor. beefy granulating tissue seen after debridement. Ulceration is identified plantar mid foot 1 x .8 cm in diameter probing to sub q. no drainage or discharge no cellulites;. Ulceration to the posterior R heel noted. dry eschar is seen no pus no drainage or discharge no cellulitis Bk Cole DPM Nov 02, 2019 11:51
--- NOTE | 2019-11-02 12:51 | NUR ---
NURSE NOTES: Called and left a message to Dr Bower regarding elevated D-dimer level. Awaiting call back for new orders.
--- NOTE | 2019-11-02 13:00 | Surgery Progress Note ---
Surgery Progress Note Subjective Additional Comments more awake today labs noted slight improvement exam stable Objective Last 24 Hour Vital Signs Date Time Temp Pulse Resp B/P (MAP) Pulse Ox O2 Delivery O2 Flow Rate FiO2 11/02/19 12:00 99.5 74 24 112/45 (67) 76 11/02/19 12:00 74 11/02/19 11:00 75 20 124/59 (80) 85 11/02/19 11:00 75 22 143/48 (79) 84 11/02/19 10:51 75 26 100 11/02/19 10:00 75 22 143/48 (79) 84 11/02/19 09:55 100 11/02/19 09:00 100.1 79 24 137/49 (78) 86 11/02/19 08:55 82 26 100 11/02/19 08:00 80 11/02/19 08:00 101.8 81 23 150/60 (90) 84 11/02/19 07:00 83 22 168/48 (88) 93 11/02/19 06:41 79 25 100 11/02/19 06:00 81 24 156/62 (93) 92 11/02/19 05:30 80 24 100 11/02/19 05:00 79 22 128/75 (92) 93 11/02/19 04:00 78 11/02/19 04:00 99.7 81 152/62 (92) 11/02/19 03:52 82 18 97 Mechanical Ventilator 100 80 18 92 11/02/19 03:30 72 20 100 11/02/19 03:00 77 22 130/100 (110) 93 11/02/19 02:00 75 21 151/49 (83) 95 11/02/19 01:30 76 22 100 11/02/19 01:00 72 19 144/50 (81) 97 11/02/19 00:00 98.6 74 19 140/56 (84) 97 11/02/19 00:00 72 11/01/19 23:23 71 22 100 11/01/19 22:45 71 22 143/79 (100) 99 11/01/19 22:30 72 21 145/65 (91) 97 11/01/19 22:15 70 21 149/48 (81) 100 11/01/19 22:00 71 20 144/84 (104) 98 11/01/19 21:45 70 21 152/64 (93) 100 11/01/19 21:30 71 23 145/44 (77) 96 11/01/19 21:30 60 21 100 11/01/19 21:15 72 19 144/61 (88) 96 11/01/19 21:00 71 21 143/48 (79) 95 11/01/19 20:45 66 21 131/103 (112) 93 11/01/19 20:31 71 19 99 Mechanical Ventilator 100 11/01/19 20:31 93 Mechanical Ventilator 100 11/01/19 20:30 66 20 134/108 (117) 94 11/01/19 20:15 65 20 148/49 (82) 95 11/01/19 20:00 98.9 67 19 144/53 (83) 96 11/01/19 20:00 67 11/01/19 20:00 Mechanical Ventilator 11/01/19 19:30 66 23 100 11/01/19 19:00 66 13 150/50 (83) 100 11/01/19 18:00 69 18 149/46 (80) 100 11/01/19 18:00 69 18 149/46 (80) 100 11/01/19 17:07 70 18 100 11/01/19 17:00 69 14 152/49 (83) 100 11/01/19 16:13 100 11/01/19 16:00 69 11/01/19 16:00 70 16 150/51 (84) 100 11/01/19 16:00 Mechanical Ventilator 11/01/19 15:00 78 18 153/53 (86) 95 11/01/19 14:44 94 Mechanical Ventilator 100 11/01/19 14:15 Mechanical Ventilator 11/01/19 14:15 98.1 79 18 158/57 (90) 90 11/01/19 14:00 70 11/01/19 14:00 100 11/01/19 14:00 78 18 100 11/01/19 14:00 76 18 94 Mechanical Ventilator 100 I&O Intake and Output 11/01/19 11/02/19 19:00 07:00 Intake Total 2275.000 ml Output Total 30 ml 70 ml Balance -30 ml 2205.000 ml IV Total 275.000 ml Hemodialysis 2000 ml Output Urine Total 30 ml 70 ml Dressing: other Wound: other Drains: other Cardiovascular: RSR Respiratory: decreased breath sounds Abdomen: soft, present bowel sounds Extremities: no cyanosis Laboratory Tests Test 11/01/19 13:50 11/01/19 14:05 11/01/19 15:50 11/02/19 03:25 Sodium Level 143 MMOL/L (136-145) 143 MMOL/L (136-145) 144 MMOL/L (136-145) Potassium Level 3.9 MMOL/L (3.5-5.1) 3.8 MMOL/L (3.5-5.1) 3.4 MMOL/L (3.5-5.1) L Chloride Level 107 MMOL/L (98-107) 107 MMOL/L (98-107) 106 MMOL/L (98-107) Carbon Dioxide Level 21 MMOL/L (21-32) 20 MMOL/L (21-32) L 25 MMOL/L (21-32) Anion Gap 15 mmol/L (5-15) 16 mmol/L (5-15) H 13 mmol/L (5-15) Blood Urea Nitrogen 54 mg/dL (7-18) H 58 mg/dL (7-18) H 40 mg/dL (7-18) H Creatinine 4.3 MG/DL (0.55-1.30) H 4.3 MG/DL (0.55-1.30) H 3.6 MG/DL (0.55-1.30) H Estimat Glomerular Filtration Rate 12.7 mL/min (>60) 12.7 mL/min (>60) 15.5 mL/min (>60) Glucose Level 302 MG/DL (74-106) H 299 MG/DL (74-106) H 177 MG/DL (74-106) #H Calcium Level 7.8 MG/DL (8.5-10.1) L 8.2 MG/DL (8.5-10.1) L 8.2 MG/DL (8.5-10.1) L Arterial Blood pH 7.282 (7.350-7.450) Arterial Blood Partial Pressure CO2 40.6 mmHg (35.0-45.0) Arterial Blood Partial Pressure O2 58.9 mmHg (75.0-100.0) L Arterial Blood HCO3 18.7 mmol/L (22.0-26.0) L Arterial Blood Oxygen Saturation 89.2 % (95-100) *L Arterial Blood Base Excess -7.4 (-2-2) L Karan Test Positive White Blood Count 7.9 K/UL (4.8-10.8) 6.6 K/UL (4.8-10.8) Red Blood Count 2.82 M/UL (4.20-5.40) L 2.76 M/UL (4.20-5.40) L Hemoglobin 8.5 G/DL (12.0-16.0) L 8.7 G/DL (12.0-16.0) L Hematocrit 26.0 % (37.0-47.0) L 25.2 % (37.0-47.0) L Mean Corpuscular Volume 92 FL (80-99) 91 FL (80-99) Mean Corpuscular Hemoglobin 30.3 PG (27.0-31.0) 31.4 PG (27.0-31.0) H Mean Corpuscular Hemoglobin Concent 32.8 G/DL (32.0-36.0) 34.4 G/DL (32.0-36.0) Red Cell Distribution Width 17.4 % (11.6-14.8) H 17.2 % (11.6-14.8) H Platelet Count 112 K/UL (150-450) L 105 K/UL (150-450) L Mean Platelet Volume 8.9 FL (6.5-10.1) 7.6 FL (6.5-10.1) Neutrophils (%) (Auto) % (45.0-75.0) % (45.0-75.0) Lymphocytes (%) (Auto) % (20.0-45.0) % (20.0-45.0) Monocytes (%) (Auto) % (1.0-10.0) % (1.0-10.0) Eosinophils (%) (Auto) % (0.0-3.0) % (0.0-3.0) Basophils (%) (Auto) % (0.0-2.0) % (0.0-2.0) Differential Total Cells Counted 100 Neutrophils % (Manual) 97 % (45-75) H Lymphocytes % (Manual) 2 % (20-45) L Monocytes % (Manual) 1 % (1-10) Eosinophils % (Manual) 0 % (0-3) Basophils % (Manual) 0 % (0-2) Band Neutrophils 0 % (0-8) Platelet Estimate Decreased L Platelet Morphology Normal Anisocytosis 1+ Total Bilirubin 0.7 MG/DL (0.2-1.0) 0.8 MG/DL (0.2-1.0) Aspartate Amino Transf (AST/SGOT) 335 U/L (15-37) H 302 U/L (15-37) H Alanine Aminotransferase (ALT/SGPT) 462 U/L (12-78) H 420 U/L (12-78) H Alkaline Phosphatase 191 U/L (46-116) H 204 U/L (46-116) H Total Protein 6.6 G/DL (6.4-8.2) 6.5 G/DL (6.4-8.2) Albumin 1.8 G/DL (3.4-5.0) L 1.7 G/DL (3.4-5.0) L Globulin 4.8 g/dL 4.8 g/dL Albumin/Globulin Ratio 0.4 (1.0-2.7) L 0.4 (1.0-2.7) L Hemoglobin A1c 8.0 % (4.3-6.0) H Random Vancomycin Level 9.7 ug/mL Test 11/02/19 09:15 11/02/19 10:35 Arterial Blood pH 7.381 (7.350-7.450) Arterial Blood Partial Pressure CO2 43.3 mmHg (35.0-45.0) Arterial Blood Partial Pressure O2 45.3 mmHg (75.0-100.0) Arterial Blood HCO3 25.1 mmol/L (22.0-26.0) Arterial Blood Oxygen Saturation 78.7 % (95-100) *L Arterial Blood Base Excess -0.1 (-2-2) Karan Test Positive D-Dimer 37.10 mg/L FEU (0.00-0.49) H Plan Problems: (1) Shock liver Assessment & Plan: Findings: Gallbladder is unremarkable, without stones, wall thickening, nor pericholecystic fluid. Sonographic Kang's sign is negative. Common bile duct measures 7 mm in diameter. No intrahepatic biliary ductal dilatation. Liver demonstrates normal echogenicity, no focal abnormality. Portal vein and hepatic veins are patent. Pancreas is unremarkable. Spleen is unremarkable. Left kidney measures 10.5 cm in length. Right kidney measures 9.8 cm length. Both kidneys demonstrate slightly increased echogenicity. There are bilateral cysts in the kidneys. There is no hydronephrosis. There is trace right pleural fluid. Abdominal aorta is partially obscured by bowel gas, visualized portions are non- aneurysmal . Impression: Negative for gallstones Minimally dilated common bile duct. Downstream obstruction not completely excludable. Correlate with liver function tests, consider MRCP for further evaluation if clinically indicated Slightly increased renal echogenicity bilaterally. Negative for hydronephrosis Trace right pleural fluid No acute surgical intervention planned resuscitate fluids trend labs (2) Sepsis Assessment & Plan: 64-year-old female multiple comorbidities altered level consciousness now in the intensive care unit on ventilator support. Liver functions noted likely related shock liver Ultrasound reviewed Abdominal exam benign Continue resuscitation HD as per nephrology KUB ordered Labs ordered Trend labs We will follow the recommendations thank you (3) Decubitus skin ulcer Assessment & Plan: Pt presented on admission with full thickness stage 4 sacral pressure injury Base of wound is beefy red with macerated borders further extending into cleft of buttocks.Small amt sanguineous exudate.Periwound is excoriated.(L)3.5cm x (W)5cm x (D)0.2cm. Partial thickness stage 2 wound noted to medial upper L thigh. Base of wound is moist and viable. Edges adherent and flat with an extended elongated black border without induration or fluctuance that extends to posterior L upper thigh( L)0.5cm x (W)2.5cm. Unstageable pressure injury R heel. Base of wound is 100% soft necrosis.(L)2cm x (W)4.3cm. Non-blanching erythema with fluctuance. TMA R foot. Open surgical incision which extends well into plantar aspect is open. Base of wound has 90% slough,10% alyssa with rolled edges.(L)2cm x (W) 13.5cm. Second full thickness ulcer Plantar R foot that is in close proximity to surgical wound . Base of wound has 100% yellow slough . Borders are macerated. Small amt purulent exudate noted. Tx.Plan: Cleanse Sacral wound with Saline. Apply Moisture Barrier Paste.Cover with Optifoam narcisog. Change every 3 days and prn. Wash Right foot with NS daily. Apply dakins 1/4 % gauze and dressings BID Reposition at least every 2hours or as tolerated. Off-load heels with pillow. APM/CHRISTELLE mattress overlay. Thony Powers Nov 02, 2019 13:00
[2019-11-02] MEDS ORDERED: Heparin 5000 units/ml inj IV ONE (13:30)
--- NOTE | 2019-11-02 13:30 | NUR ---
NURSE NOTES: Dr Bower called back. Notified Dr Bower regarding elevated D-dimer. Order for Heprain drip received, noted, and carried out.
--- NOTE | 2019-11-02 13:38 | NUR ---
RADIOLOGY DEPT., CHEST X-RAY DONE.-P.DYE
--- NOTE | 2019-11-02 13:58 | NUR ---
NURSE NOTES: Right toe amputation site and both heel dressing changed as ordered.
[2019-11-02] MEDS ORDERED: Heparin 25,000u/D5W 500ml 500 ML IV SCH ×2 (14:12→23:30)
[2019-11-02 14:32] LABS: INR 1.2 (0.9-1.1)
--- NOTE | 2019-11-02 14:36 | NUR ---
NURSE NOTES: Heparin drip started at 18 units/kg/hr as per protocol. and brother at bedside. Pt is lethargic but oriented x3-4.
[2019-11-02] MEDS ORDERED: Tubing IV Secondary IV ONE (15:04)
[2019-11-02] MEDS ORDERED: NS 275ml ONE (15:04)
--- NOTE | 2019-11-02 15:31 | NUR ---
NURSE NOTES: Dr Antoine here at bedside, assessing the patient. Notified him regarding fever 101.8 this AM. Awaiting new orders.
--- NOTE | 2019-11-02 15:51 | Infectious Diseases Prog Note ---
Assessment/Plan Assessment/Plan ASSESSMENT AND PLAN: 1. proteus uti/pyelonephritis, pna vs edema, sepsis, fevers, influenza screen negative, right foot wound infection respiratory failure and vent, renal failure, elevated lft's - change to meropenem, vancomycin and azithromycin - check sputum culture, wound culture, labs and chest x-ray - wound care per podiatry, x-ray without osteomyelitis 2. sob, vent - per pulmonary medicine 3. Renal failure, on hemodialysis. 4. Anemia. 5. Diabetes. 6. Hypertension. 7. Blood sugar and blood pressure treatment for diabetes and hypertension per primary care team. 8. Dyslipidemia. 9. Gout. 10. Chronic renal failure. 11. Peripheral vascular disease. 12. Right partial foot amputation. 13. Looks like history of possible CVA. 14. Skin care protocol. 15. Continue treatment per primary consultants. 16. No known allergies. 17. Social history is negative. 18. Family history is noncontributory. 19. MAR is noted. 20. Case was discussed with RN. Subjective Constitutional: Reports: fever, fatigue, other - on vent, intubated, alert, HEENT: Reports: congestion Respiratory: Reports: shortness of breath Cardiovascular: Denies: chest pain Gastrointestinal/Abdominal: Reports: other - no abdominal pain ; Denies: nausea , vomiting, diarrhea Genitourinary: Reports: other - + matute Neurologic: Denies: headache Psychiatric: Denies: depression Skin: Denies: rash Hematologic: Denies: bleeding Musculoskeletal: Denies: pain Allergies: Coded Allergies: No Known Allergies (Unverified , 08/03/19) Objective Vital Signs Last 24 Hour Vital Signs Date Time Temp Pulse Resp B/P (MAP) Pulse Ox O2 Delivery O2 Flow Rate FiO2 11/02/19 15:02 70 22 100 11/02/19 15:00 68 20 111/42 (65) 85 11/02/19 15:00 70 20 111/42 (65) 87 11/02/19 14:00 71 19 124/44 (70) 84 11/02/19 14:00 72 19 120/66 (84) 82 11/02/19 13:00 74 19 121/48 (72) 83 11/02/19 12:37 75 25 100 11/02/19 12:00 99.5 74 24 112/45 (67) 76 11/02/19 12:00 74 11/02/19 11:00 75 20 124/59 (80) 85 11/02/19 11:00 75 22 143/48 (79) 84 11/02/19 10:51 75 26 100 11/02/19 10:00 75 22 143/48 (79) 84 11/02/19 09:55 100 11/02/19 09:00 100.1 79 24 137/49 (78) 86 11/02/19 08:55 82 26 100 11/02/19 08:00 80 11/02/19 08:00 101.8 81 23 150/60 (90) 84 11/02/19 07:00 83 22 168/48 (88) 93 11/02/19 06:41 79 25 100 11/02/19 06:00 81 24 156/62 (93) 92 11/02/19 05:30 80 24 100 11/02/19 05:00 79 22 128/75 (92) 93 11/02/19 04:00 78 11/02/19 04:00 99.7 81 152/62 (92) 11/02/19 03:52 82 18 97 Mechanical Ventilator 100 80 18 92 11/02/19 03:30 72 20 100 11/02/19 03:00 77 22 130/100 (110) 93 11/02/19 02:00 75 21 151/49 (83) 95 11/02/19 01:30 76 22 100 11/02/19 01:00 72 19 144/50 (81) 97 11/02/19 00:00 98.6 74 19 140/56 (84) 97 11/02/19 00:00 72 11/01/19 23:23 71 22 100 11/01/19 22:45 71 22 143/79 (100) 99 11/01/19 22:30 72 21 145/65 (91) 97 11/01/19 22:15 70 21 149/48 (81) 100 11/01/19 22:00 71 20 144/84 (104) 98 11/01/19 21:45 70 21 152/64 (93) 100 11/01/19 21:30 71 23 145/44 (77) 96 11/01/19 21:30 60 21 100 11/01/19 21:15 72 19 144/61 (88) 96 11/01/19 21:00 71 21 143/48 (79) 95 11/01/19 20:45 66 21 131/103 (112) 93 11/01/19 20:31 71 19 99 Mechanical Ventilator 100 11/01/19 20:31 93 Mechanical Ventilator 100 11/01/19 20:30 66 20 134/108 (117) 94 11/01/19 20:15 65 20 148/49 (82) 95 11/01/19 20:00 98.9 67 19 144/53 (83) 96 11/01/19 20:00 67 11/01/19 20:00 Mechanical Ventilator 11/01/19 19:30 66 23 100 11/01/19 19:00 66 13 150/50 (83) 100 11/01/19 18:00 69 18 149/46 (80) 100 11/01/19 18:00 69 18 149/46 (80) 100 11/01/19 17:07 70 18 100 11/01/19 17:00 69 14 152/49 (83) 100 11/01/19 16:13 100 11/01/19 16:00 69 11/01/19 16:00 70 16 150/51 (84) 100 11/01/19 16:00 Mechanical Ventilator Height (Feet): 5 Height (Inches): 4.00 Weight (Pounds): 213 General Appearance: no acute distress HEENT: normocephalic, atraumatic, anicteric, EOMI, other - oral - intubated Respiratory/Chest: crackles/rales, rhonchi - bilaterally Cardiovascular: normal rate, regular rhythm, no gallop/murmur, no JVD Abdomen: normal bowel sounds, soft, non tender, no organomegaly, non distended Genitourinary: other - + matute - urine slt cloudy Extremities: no cyanosis, other - right foot covered Skin: no rash Neurologic/Psychiatric: inspector conveyor line II-XII grossly normal, alert, responsive Lymphatic: no neck adenopathy Musculoskeletal: no effusion Objective Chest x-ray - 11/02/19 - Procedure: XRAY Chest 1v Indication: Dyspnea Technique: One view of the chest Comparison: 11/01/2019 Findings: Bilateral interstitial and airspace infiltrates versus edema appears slightly increased, with some shifting of consolidation. Interim placement of a nasogastric tube, tip of which projects beyond the edge of the image, demonstrated to be in good position on recent abdominal radiograph. Other tube and line positions are stable, satisfactory. Impression: Over one day, slight worsening of bilateral interstitial and airspace infiltrates versus edema. Stable cardiomegaly Satisfactory nasogastric intubation Microbiology Date/Time Source Procedure Growth Status 10/30/19 21:00 Blood Blood Culture - Preliminary NO GROWTH AFTER 48 HOURS Resulted 10/30/19 20:50 Blood Blood Culture - Preliminary NO GROWTH AFTER 48 HOURS Resulted 10/31/19 22:15 Foot Right Gram Stain - Final Resulted 10/31/19 22:15 Foot Right Wound Culture - Preliminary Resulted Laboratory Tests Test 11/01/19 15:50 11/02/19 03:25 11/02/19 09:15 11/02/19 10:35 White Blood Count 7.9 K/UL (4.8-10.8) 6.6 K/UL (4.8-10.8) Red Blood Count 2.82 M/UL (4.20-5.40) L 2.76 M/UL (4.20-5.40) L Hemoglobin 8.5 G/DL (12.0-16.0) L 8.7 G/DL (12.0-16.0) L Hematocrit 26.0 % (37.0-47.0) L 25.2 % (37.0-47.0) L Mean Corpuscular Volume 92 FL (80-99) 91 FL (80-99) Mean Corpuscular Hemoglobin 30.3 PG (27.0-31.0) 31.4 PG (27.0-31.0) H Mean Corpuscular Hemoglobin Concent 32.8 G/DL (32.0-36.0) 34.4 G/DL (32.0-36.0) Red Cell Distribution Width 17.4 % (11.6-14.8) H 17.2 % (11.6-14.8) H Platelet Count 112 K/UL (150-450) L 105 K/UL (150-450) L Mean Platelet Volume 8.9 FL (6.5-10.1) 7.6 FL (6.5-10.1) Neutrophils (%) (Auto) % (45.0-75.0) % (45.0-75.0) Lymphocytes (%) (Auto) % (20.0-45.0) % (20.0-45.0) Monocytes (%) (Auto) % (1.0-10.0) % (1.0-10.0) Eosinophils (%) (Auto) % (0.0-3.0) % (0.0-3.0) Basophils (%) (Auto) % (0.0-2.0) % (0.0-2.0) Differential Total Cells Counted 100 Neutrophils % (Manual) 97 % (45-75) H Lymphocytes % (Manual) 2 % (20-45) L Monocytes % (Manual) 1 % (1-10) Eosinophils % (Manual) 0 % (0-3) Basophils % (Manual) 0 % (0-2) Band Neutrophils 0 % (0-8) Platelet Estimate Decreased L Platelet Morphology Normal Anisocytosis 1+ Sodium Level 143 MMOL/L (136-145) 144 MMOL/L (136-145) Potassium Level 3.8 MMOL/L (3.5-5.1) 3.4 MMOL/L (3.5-5.1) L Chloride Level 107 MMOL/L (98-107) 106 MMOL/L (98-107) Carbon Dioxide Level 20 MMOL/L (21-32) L 25 MMOL/L (21-32) Anion Gap 16 mmol/L (5-15) H 13 mmol/L (5-15) Blood Urea Nitrogen 58 mg/dL (7-18) H 40 mg/dL (7-18) H Creatinine 4.3 MG/DL (0.55-1.30) H 3.6 MG/DL (0.55-1.30) H Estimat Glomerular Filtration Rate 12.7 mL/min (>60) 15.5 mL/min (>60) Glucose Level 299 MG/DL (74-106) H 177 MG/DL (74-106) #H Calcium Level 8.2 MG/DL (8.5-10.1) L 8.2 MG/DL (8.5-10.1) L Total Bilirubin 0.7 MG/DL (0.2-1.0) 0.8 MG/DL (0.2-1.0) Aspartate Amino Transf (AST/SGOT) 335 U/L (15-37) H 302 U/L (15-37) H Alanine Aminotransferase (ALT/SGPT) 462 U/L (12-78) H 420 U/L (12-78) H Alkaline Phosphatase 191 U/L (46-116) H 204 U/L (46-116) H Total Protein 6.6 G/DL (6.4-8.2) 6.5 G/DL (6.4-8.2) Albumin 1.8 G/DL (3.4-5.0) L 1.7 G/DL (3.4-5.0) L Globulin 4.8 g/dL 4.8 g/dL Albumin/Globulin Ratio 0.4 (1.0-2.7) L 0.4 (1.0-2.7) L Hemoglobin A1c 8.0 % (4.3-6.0) H Random Vancomycin Level 9.7 ug/mL Arterial Blood pH 7.381 (7.350-7.450) Arterial Blood Partial Pressure CO2 43.3 mmHg (35.0-45.0) Arterial Blood Partial Pressure O2 45.3 mmHg (75.0-100.0) Arterial Blood HCO3 25.1 mmol/L (22.0-26.0) Arterial Blood Oxygen Saturation 78.7 % (95-100) *L Arterial Blood Base Excess -0.1 (-2-2) Karan Test Positive D-Dimer 37.10 mg/L FEU (0.00-0.49) H Test 11/02/19 12:00 11/02/19 13:45 Stool Occult Blood Pending Prothrombin Time 12.4 SEC (9.30-11.50) H Prothromb Time International Ratio 1.2 (0.9-1.1) H Activated Partial Thromboplast Time 40 SEC (23-33) H Current Medications Medications (Trade) Dose Ordered Sig/Cb Route PRN Reason Start Time Stop Time Status Last Admin Dose Admin Acetaminophen/ Hydrocodone Bitart ([place] 5/325) 1 tab Q6H PRN ORAL For Pain 11/01/19 14:37 11/08/19 14:36 Albuterol/ Ipratropium (Albuterol/ Ipratropium) 3 ml Q4H PRN HHN Shortness of Breath 11/01/19 14:36 11/06/19 14:35 11/02/19 03:52 Allopurinol (Zyloprim) 100 mg DAILY ORAL 11/02/19 09:00 11/29/19 08:59 11/02/19 08:48 Ascorbic Acid (Vitamin C) 500 mg DAILY ORAL 11/02/19 09:00 11/29/19 08:59 11/02/19 08:51 Atorvastatin Calcium (Lipitor) 40 mg BEDTIME ORAL 11/01/19 21:00 11/29/19 20:59 11/01/19 21:44 Chlorhexidine Gluconate (Chandni-Hex 2%) 1 applic DAILY@2000 TOPIC 11/02/19 20:00 12/02/19 19:59 Clonidine HCl (Catapres tab) 0.2 mg BID ORAL 11/01/19 18:00 11/29/19 08:59 Collagenase (Santyl) 1 applic DAILY TOPIC 11/03/19 09:00 12/03/19 08:59 Dextrose (Dextrose 50%) 25 ml Q30M PRN IV Hypoglycemia 11/01/19 14:45 12/01/19 13:14 Dextrose (Dextrose 50%) 50 ml Q30M PRN IV Hypoglycemia 11/01/19 14:45 12/01/19 13:14 Epoetin Julio (Epoetin Julio(ESRD on dialysis)) 10,000 unit WED-WED-WED SUBQ 11/01/19 21:00 12/01/19 20:59 11/01/19 21:42 Heparin Sodium/ Dextrose 500 ml @ 34.781 mls/ hr ADJUST PER PROTOCOL IV 11/02/19 14:12 12/02/19 14:11 11/02/19 14:37 Insulin Aspart (NovoLOG) BEFORE MEALS AND HS SUBQ 11/01/19 16:30 12/01/19 16:29 11/02/19 11:20 Iron Sucrose 100 mg/Sodium Chloride 60 ml @ 240 mls/hr BEDTIME IV 11/01/19 21:00 11/04/19 21:14 11/01/19 21:44 Levetiracetam (Keppra) 500 mg Q12HR ORAL 11/01/19 21:00 11/29/19 20:59 11/02/19 08:48 Losartan Potassium (Cozaar) 100 mg DAILY ORAL 11/02/19 09:00 11/30/19 08:59 Multivitamins (Multivitamins) 1 tab DAILY ORAL 11/02/19 09:00 11/29/19 08:59 11/02/19 08:48 Norepinephrine Bitartrate 4 mg/ Dextrose 250 ml @ 0 mls/hr Q24H IV 11/01/19 14:32 12/01/19 14:31 Pantoprazole (Protonix) 40 mg DAILY IVP 11/02/19 09:00 12/02/19 08:59 11/02/19 08:48 Piperacillin Sod/ Tazobactam Sod 2.25 gm/Dextrose 55 ml @ 110 mls/hr Q8HR IVPB 11/01/19 22:00 11/06/19 21:59 11/02/19 14:11 Sevelamer Carbonate (Renvela) 800 mg THREE TIMES A DAY ORAL 11/01/19 18:00 11/30/19 17:59 11/02/19 14:11 Vancomycin HCl (Vanco rx to dose) 1 ea DAILY PRN MISC Per rx protocol 11/02/19 09:00 12/01/19 14:14 Zinc Sulfate (Zinc Sulfate) 220 mg DAILY ORAL 11/02/19 09:00 11/29/19 08:59 11/02/19 08:52 Brijesh Miller MD Nov 02, 2019 15:51
[2019-11-02] MEDS ORDERED: Azithromycin 250mg tab ORAL SCH (16:00)
--- NOTE | 2019-11-02 16:31 | Pulmonology Progress Note ---
Assessment/Plan Assessment/Plan IMPRESSION: 1. Pulmonary edema with infiltrate/mass in the right upper lobe. 2. UTI. 3. Acute renal failure. 4. Hypoxemia. 5. Respiratory failure. now intubated 6. Anemia. DISCUSSION: I will follow as plate grainer. continue assist control mode. Is on 100% FiO2 and PEEP of 10 Has positive d-dimer. Will initiate heparin drip needs aggressive ultra filtration and dialysis Discussed with nephrology. Faraz Bower M.D. Subjective Interval Events: doing poorly, intubated Constitutional: Reports: no symptoms HEENT: Repors: no symptoms Respiratory: Reports: no symptoms Cardiovascular: Reports: no symptoms Gastrointestinal/Abdominal: Reports: no symptoms Allergies: Coded Allergies: No Known Allergies (Unverified , 08/03/19) Objective Last 24 Hour Vital Signs Date Time Temp Pulse Resp B/P (MAP) Pulse Ox O2 Delivery O2 Flow Rate FiO2 11/02/19 15:02 70 22 100 11/02/19 15:00 68 20 111/42 (65) 85 11/02/19 15:00 70 20 111/42 (65) 87 11/02/19 14:00 71 19 124/44 (70) 84 11/02/19 14:00 72 19 120/66 (84) 82 11/02/19 13:00 74 19 121/48 (72) 83 11/02/19 12:37 75 25 100 11/02/19 12:00 99.5 74 24 112/45 (67) 76 11/02/19 12:00 74 11/02/19 11:00 75 20 124/59 (80) 85 11/02/19 11:00 75 22 143/48 (79) 84 11/02/19 10:51 75 26 100 11/02/19 10:00 75 22 143/48 (79) 84 11/02/19 09:55 100 11/02/19 09:00 100.1 79 24 137/49 (78) 86 11/02/19 08:55 82 26 100 11/02/19 08:00 80 11/02/19 08:00 101.8 81 23 150/60 (90) 84 11/02/19 07:00 83 22 168/48 (88) 93 11/02/19 06:41 79 25 100 11/02/19 06:00 81 24 156/62 (93) 92 11/02/19 05:30 80 24 100 11/02/19 05:00 79 22 128/75 (92) 93 11/02/19 04:00 78 11/02/19 04:00 99.7 81 152/62 (92) 11/02/19 03:52 82 18 97 Mechanical Ventilator 100 80 18 92 11/02/19 03:30 72 20 100 11/02/19 03:00 77 22 130/100 (110) 93 11/02/19 02:00 75 21 151/49 (83) 95 11/02/19 01:30 76 22 100 11/02/19 01:00 72 19 144/50 (81) 97 11/02/19 00:00 98.6 74 19 140/56 (84) 97 11/02/19 00:00 72 11/01/19 23:23 71 22 100 11/01/19 22:45 71 22 143/79 (100) 99 11/01/19 22:30 72 21 145/65 (91) 97 11/01/19 22:15 70 21 149/48 (81) 100 11/01/19 22:00 71 20 144/84 (104) 98 11/01/19 21:45 70 21 152/64 (93) 100 11/01/19 21:30 71 23 145/44 (77) 96 11/01/19 21:30 60 21 100 11/01/19 21:15 72 19 144/61 (88) 96 11/01/19 21:00 71 21 143/48 (79) 95 11/01/19 20:45 66 21 131/103 (112) 93 11/01/19 20:31 71 19 99 Mechanical Ventilator 100 11/01/19 20:31 93 Mechanical Ventilator 100 11/01/19 20:30 66 20 134/108 (117) 94 11/01/19 20:15 65 20 148/49 (82) 95 11/01/19 20:00 98.9 67 19 144/53 (83) 96 11/01/19 20:00 67 11/01/19 20:00 Mechanical Ventilator 11/01/19 19:30 66 23 100 11/01/19 19:00 66 13 150/50 (83) 100 11/01/19 18:00 69 18 149/46 (80) 100 11/01/19 18:00 69 18 149/46 (80) 100 11/01/19 17:07 70 18 100 11/01/19 17:00 69 14 152/49 (83) 100 Intake and Output 11/01/19 11/02/19 19:00 07:00 Intake Total 2275.000 ml Output Total 30 ml 70 ml Balance -30 ml 2205.000 ml IV Total 275.000 ml Hemodialysis 2000 ml Output Urine Total 30 ml 70 ml General Appearance: no acute distress HEENT: normocephalic Respiratory/Chest: chest wall non-tender, decreased breath sounds Cardiovascular: normal peripheral pulses, normal rate Abdomen: soft, non tender Microbiology Date/Time Source Procedure Growth Status 10/30/19 21:00 Blood Blood Culture - Preliminary NO GROWTH AFTER 48 HOURS Resulted 10/30/19 20:50 Blood Blood Culture - Preliminary NO GROWTH AFTER 48 HOURS Resulted 10/31/19 22:15 Foot Right Gram Stain - Final Resulted 10/31/19 22:15 Foot Right Wound Culture - Preliminary Resulted Laboratory Tests 11/02/19 03:25: White Blood Count 6.6, Red Blood Count 2.76L, Hemoglobin 8.7L, Hematocrit 25.2L , Mean Corpuscular Volume 91, Mean Corpuscular Hemoglobin 31.4H, Mean Corpuscular Hemoglobin Concent 34.4, Red Cell Distribution Width 17.2H, Platelet Count 105L, Mean Platelet Volume 7.6, Neutrophils (%) (Auto) , Lymphocytes (%) (Auto) , Monocytes (%) (Auto) , Eosinophils (%) (Auto) , Basophils (%) (Auto) , Sodium Level 144, Potassium Level 3.4L, Chloride Level 106, Carbon Dioxide Level 25, Anion Gap 13, Blood Urea Nitrogen 40H, Creatinine 3.6H, Estimat Glomerular Filtration Rate 15.5, Glucose Level 177#H, Hemoglobin A1c 8.0H, Calcium Level 8.2L, Total Bilirubin 0.8, Aspartate Amino Transf (AST/ SGOT) 302H, Alanine Aminotransferase (ALT/SGPT) 420H, Alkaline Phosphatase 204H , Total Protein 6.5, Albumin 1.7L, Globulin 4.8, Albumin/Globulin Ratio 0.4L, Random Vancomycin Level 9.7 11/02/19 09:15: Arterial Blood pH 7.381, Arterial Blood Partial Pressure CO2 43.3, Arterial Blood Partial Pressure O2 45.3*L, Arterial Blood HCO3 25.1, Arterial Blood Oxygen Saturation 78.7*L, Arterial Blood Base Excess -0.1, Karan Test Positive 11/02/19 10:35: D-Dimer 37.10H 11/02/19 12:00: Stool Occult Blood [Pending] 11/02/19 13:45: Prothrombin Time 12.4H, Prothromb Time International Ratio 1.2H, Activated Partial Thromboplast Time 40H Current Medications Medications (Trade) Dose Ordered Sig/Cb Route PRN Reason Start Time Stop Time Status Last Admin Dose Admin Acetaminophen/ Hydrocodone Bitart ([place] 5/325) 1 tab Q6H PRN ORAL For Pain 11/01/19 14:37 11/08/19 14:36 Albuterol/ Ipratropium (Albuterol/ Ipratropium) 3 ml Q4H PRN HHN Shortness of Breath 11/01/19 14:36 11/06/19 14:35 11/02/19 03:52 Allopurinol (Zyloprim) 100 mg DAILY ORAL 11/02/19 09:00 11/29/19 08:59 11/02/19 08:48 Ascorbic Acid (Vitamin C) 500 mg DAILY ORAL 11/02/19 09:00 11/29/19 08:59 11/02/19 08:51 Atorvastatin Calcium (Lipitor) 40 mg BEDTIME ORAL 11/01/19 21:00 11/29/19 20:59 11/01/19 21:44 Azithromycin (Zithromax) 250 mg DAILY ORAL 11/03/19 09:00 11/10/19 08:59 Azithromycin (Zithromax) 500 mg ONCE ORAL 11/02/19 16:00 11/02/19 17:30 Chlorhexidine Gluconate (Chandni-Hex 2%) 1 applic DAILY@1999 TOPIC 11/02/19 20:00 12/02/19 19:59 Clonidine HCl (Catapres tab) 0.2 mg BID ORAL 11/01/19 18:00 11/29/19 08:59 Collagenase (Santyl) 1 applic DAILY TOPIC 11/03/19 09:00 12/03/19 08:59 Dextrose (Dextrose 50%) 25 ml Q30M PRN IV Hypoglycemia 11/01/19 14:45 12/01/19 13:14 Dextrose (Dextrose 50%) 50 ml Q30M PRN IV Hypoglycemia 11/01/19 14:45 12/01/19 13:14 Epoetin Julio (Epoetin Julio(ESRD on dialysis)) 10,000 unit WED-WED-WED SUBQ 11/01/19 21:00 12/01/19 20:59 11/01/19 21:42 Heparin Sodium/ Dextrose 500 ml @ 34.781 mls/ hr ADJUST PER PROTOCOL IV 11/02/19 14:12 12/02/19 14:11 11/02/19 14:37 Insulin Aspart (NovoLOG) BEFORE MEALS AND HS SUBQ 11/01/19 16:30 12/01/19 16:29 11/02/19 11:20 Iron Sucrose 100 mg/Sodium Chloride 60 ml @ 240 mls/hr BEDTIME IV 11/01/19 21:00 11/04/19 21:14 11/01/19 21:44 Levetiracetam (Keppra) 500 mg Q12HR ORAL 11/01/19 21:00 11/29/19 20:59 11/02/19 08:48 Losartan Potassium (Cozaar) 100 mg DAILY ORAL 11/02/19 09:00 11/30/19 08:59 Meropenem 500 mg/ Sodium Chloride 50 ml @ 100 mls/hr Q24HRS IVPB 11/02/19 16:30 11/07/19 16:29 Multivitamins (Multivitamins) 1 tab DAILY ORAL 11/02/19 09:00 11/29/19 08:59 11/02/19 08:48 Norepinephrine Bitartrate 4 mg/ Dextrose 250 ml @ 0 mls/hr Q24H IV 11/01/19 14:32 12/01/19 14:31 Pantoprazole (Protonix) 40 mg DAILY IVP 11/02/19 09:00 12/02/19 08:59 11/02/19 08:48 Sevelamer Carbonate (Renvela) 800 mg THREE TIMES A DAY ORAL 11/01/19 18:00 11/30/19 17:59 11/02/19 14:11 Vancomycin HCl (Vanco rx to dose) 1 ea DAILY PRN MISC Per rx protocol 11/02/19 09:00 12/01/19 14:14 Zinc Sulfate (Zinc Sulfate) 220 mg DAILY ORAL 11/02/19 09:00 11/29/19 08:59 11/02/19 08:52 Faraz Bower MD Nov 02, 2019 16:31
--- NOTE | 2019-11-02 16:37 | Diagnostic Imaging Report ---
Indication: Bilateral leg pain Technique: Grayscale and duplex images of bilateral lower extremity veins Comparison: 10/30/2019 Findings: Bilaterally, grayscale and duplex images demonstrate no evidence of intraluminal thrombus. Normal phasic Doppler waveforms, demonstrating normal augmentation response and no evidence of valvular insufficiency. The greater saphenous veins and tibial veins are patent bilaterally. Normal compressibility. Incidental finding of prominent lymph node in the left groin, demonstrating normal architecture. There is no significant interim change Impression: Unchanged over 3 days. Negative for lower extremity deep venous thrombosis
--- NOTE | 2019-11-02 17:05 | Cardiac Electrophysiology PN ---
Assessment/Plan Assessment/Plan 1. Non-ST elevation myocardial infarction with elevated troponin of 3.38. Down to 2 to 1. The patient however has renal failure and Hb 6.5. The EKG also showed inferolateral T-wave inversion. The patient however does not have any chest pain. Off Coreg for bradycardia. Continue Lipitor 40 mg daily and Imdur 20 mg daily. EF 65% 2. Bradycardia, likley due to respiratory failur. No further yocasta since intubation. 3. Respiratory failure, Intubated on the Vent 4. Hypertension. On Cozaar 100 mg daily, HD and clonidine 0.2 b.i.d. DC Coreg 5. Chronic kidney disease. 6. Severe anemia with hemoglobin of 6.5. S/P 3 units of PRBC. Hold off on EGD and colonoscopy DW RN Subjective Subjective S/P rapid response for bradycardia and respiratory failure, coded and was intubated. In ICU on the Vent. Had HD yesterday and another HD today Objective Last 24 Hour Vital Signs Date Time Temp Pulse Resp B/P (MAP) Pulse Ox O2 Delivery O2 Flow Rate FiO2 11/02/19 17:00 68 22 90/69 (76) 86 11/02/19 16:00 66 11/02/19 16:00 100 11/02/19 16:00 99.3 65 27 94/43 (60) 95 11/02/19 16:00 Mechanical Ventilator 11/02/19 15:02 70 22 100 11/02/19 15:00 68 20 111/42 (65) 85 11/02/19 15:00 70 20 111/42 (65) 87 11/02/19 14:00 71 19 124/44 (70) 84 11/02/19 14:00 72 19 120/66 (84) 82 11/02/19 13:00 74 19 121/48 (72) 83 11/02/19 12:37 75 25 100 11/02/19 12:00 99.5 74 24 112/45 (67) 76 11/02/19 12:00 74 11/02/19 12:00 Mechanical Ventilator 11/02/19 11:00 75 20 124/59 (80) 85 11/02/19 11:00 75 22 143/48 (79) 84 11/02/19 10:51 75 26 100 11/02/19 10:00 75 22 143/48 (79) 84 11/02/19 09:55 100 11/02/19 09:00 100.1 79 24 137/49 (78) 86 11/02/19 08:55 82 26 100 11/02/19 08:00 80 11/02/19 08:00 Mechanical Ventilator 11/02/19 08:00 101.8 81 23 150/60 (90) 84 11/02/19 07:00 83 22 168/48 (88) 93 11/02/19 06:41 79 25 100 11/02/19 06:00 81 24 156/62 (93) 92 11/02/19 05:30 80 24 100 11/02/19 05:00 79 22 128/75 (92) 93 11/02/19 04:00 78 11/02/19 04:00 99.7 81 152/62 (92) 11/02/19 03:52 82 18 97 Mechanical Ventilator 100 80 18 92 11/02/19 03:30 72 20 100 11/02/19 03:00 77 22 130/100 (110) 93 11/02/19 02:00 75 21 151/49 (83) 95 11/02/19 01:30 76 22 100 11/02/19 01:00 72 19 144/50 (81) 97 11/02/19 00:00 98.6 74 19 140/56 (84) 97 11/02/19 00:00 72 11/01/19 23:23 71 22 100 11/01/19 22:45 71 22 143/79 (100) 99 11/01/19 22:30 72 21 145/65 (91) 97 11/01/19 22:15 70 21 149/48 (81) 100 11/01/19 22:00 71 20 144/84 (104) 98 11/01/19 21:45 70 21 152/64 (93) 100 11/01/19 21:30 71 23 145/44 (77) 96 11/01/19 21:30 60 21 100 11/01/19 21:15 72 19 144/61 (88) 96 11/01/19 21:00 71 21 143/48 (79) 95 11/01/19 20:45 66 21 131/103 (112) 93 11/01/19 20:31 71 19 99 Mechanical Ventilator 100 11/01/19 20:31 93 Mechanical Ventilator 100 11/01/19 20:30 66 20 134/108 (117) 94 11/01/19 20:15 65 20 148/49 (82) 95 11/01/19 20:00 98.9 67 19 144/53 (83) 96 11/01/19 20:00 67 11/01/19 20:00 Mechanical Ventilator 11/01/19 19:30 66 23 100 11/01/19 19:00 66 13 150/50 (83) 100 11/01/19 18:00 69 18 149/46 (80) 100 11/01/19 18:00 69 18 149/46 (80) 100 11/01/19 17:07 70 18 100 Intake and Output 11/01/19 11/02/19 19:00 07:00 Intake Total 2275.000 ml Output Total 30 ml 70 ml Balance -30 ml 2205.000 ml IV Total 275.000 ml Hemodialysis 2000 ml Output Urine Total 30 ml 70 ml Laboratory Tests Test 11/02/19 03:25 11/02/19 09:15 11/02/19 10:35 11/02/19 12:00 White Blood Count 6.6 K/UL (4.8-10.8) Red Blood Count 2.76 M/UL (4.20-5.40) L Hemoglobin 8.7 G/DL (12.0-16.0) L Hematocrit 25.2 % (37.0-47.0) L Mean Corpuscular Volume 91 FL (80-99) Mean Corpuscular Hemoglobin 31.4 PG (27.0-31.0) H Mean Corpuscular Hemoglobin Concent 34.4 G/DL (32.0-36.0) Red Cell Distribution Width 17.2 % (11.6-14.8) H Platelet Count 105 K/UL (150-450) L Mean Platelet Volume 7.6 FL (6.5-10.1) Neutrophils (%) (Auto) % (45.0-75.0) Lymphocytes (%) (Auto) % (20.0-45.0) Monocytes (%) (Auto) % (1.0-10.0) Eosinophils (%) (Auto) % (0.0-3.0) Basophils (%) (Auto) % (0.0-2.0) Sodium Level 144 MMOL/L (136-145) Potassium Level 3.4 MMOL/L (3.5-5.1) L Chloride Level 106 MMOL/L (98-107) Carbon Dioxide Level 25 MMOL/L (21-32) Anion Gap 13 mmol/L (5-15) Blood Urea Nitrogen 40 mg/dL (7-18) H Creatinine 3.6 MG/DL (0.55-1.30) H Estimat Glomerular Filtration Rate 15.5 mL/min (>60) Glucose Level 177 MG/DL (74-106) #H Hemoglobin A1c 8.0 % (4.3-6.0) H Calcium Level 8.2 MG/DL (8.5-10.1) L Total Bilirubin 0.8 MG/DL (0.2-1.0) Aspartate Amino Transf (AST/SGOT) 302 U/L (15-37) H Alanine Aminotransferase (ALT/SGPT) 420 U/L (12-78) H Alkaline Phosphatase 204 U/L (46-116) H Total Protein 6.5 G/DL (6.4-8.2) Albumin 1.7 G/DL (3.4-5.0) L Globulin 4.8 g/dL Albumin/Globulin Ratio 0.4 (1.0-2.7) L Random Vancomycin Level 9.7 ug/mL Arterial Blood pH 7.381 (7.350-7.450) Arterial Blood Partial Pressure CO2 43.3 mmHg (35.0-45.0) Arterial Blood Partial Pressure O2 45.3 mmHg (75.0-100.0) Arterial Blood HCO3 25.1 mmol/L (22.0-26.0) Arterial Blood Oxygen Saturation 78.7 % (95-100) *L Arterial Blood Base Excess -0.1 (-2-2) Karan Test Positive D-Dimer 37.10 mg/L FEU (0.00-0.49) H Stool Occult Blood Pending Test 11/02/19 13:45 Prothrombin Time 12.4 SEC (9.30-11.50) H Prothromb Time International Ratio 1.2 (0.9-1.1) H Activated Partial Thromboplast Time 40 SEC (23-33) H Microbiology Date/Time Source Procedure Growth Status 10/30/19 21:00 Blood Blood Culture - Preliminary NO GROWTH AFTER 48 HOURS Resulted 10/30/19 20:50 Blood Blood Culture - Preliminary NO GROWTH AFTER 48 HOURS Resulted 10/31/19 22:15 Foot Right Gram Stain - Final Resulted 10/31/19 22:15 Foot Right Wound Culture - Preliminary Resulted Objective HEAD AND NECK: No JVD.Orally intubated. Right IJ Haile in place LUNGS: Clear. CARDIOVASCULAR: Regular S1 and S2 with no gallop or murmur. ABDOMEN: Soft. EXTREMITIES: No pitting edema. Status post right toe amputation. Henry Fuentes MD Nov 02, 2019 17:05
--- NOTE | 2019-11-02 17:50 | NUR ---
NURSE NOTES: Cleaned pt for 1 moderate amount of soft brown BM. Repositioned pt. Lethargic. O2 sat 75-85%. Will notify
--- NOTE | 2019-11-02 17:50 | NUR ---
RESPIRATORY NOTE: Get a call fro ANDI Bey regarding about pt desat to 65% on 100%FiO2 peep 10 after having a bath. Come and start bagged pt via ambu bag 15L 100%FiO2 with peep valve of 10 then 15, able to bring saturation to 90%. Placed pt back on vent with the same settings, saturation went back down and stay at 84% ( Pt's base line during my shift 85-86%). ANDI Bey made aware. Will continue to monitor pt.
--- NOTE | 2019-11-02 18:00 | NUR ---
NURSE NOTES: Started dialysis at bedside. BP is low. Will titrate up Levophed.
--- NOTE | 2019-11-02 18:01 | NUR ---
NURSE NOTES: Levophed started at 2mcg/min since BP is low 94/35 HR 60. Will continue to monitor.
--- NOTE | 2019-11-02 18:08 | NUR ---
NURSE NOTES: Called and notified Dr Bower regarding low BP, low O2 sat 60's-70%, and low HR 50's. Also notified him that RT manually bagged her. O2 sat came up to 85% but it dropped right away. No new orders.
--- NOTE | 2019-11-02 18:15 | Progress Note ---
DATE: 11/02/2019 SUBJECTIVE: This is elderly female who had cardiac arrest, intubated last night, severe metabolic acidosis, . The patient is currently more awake and comfortable, doing better. PHYSICAL EXAMINATION: VITAL SIGNS: Blood pressure 137/49, pulse 79, T-max 100.1. HEENT: AT/NC. EOMI. PERRLA. NECK: Supple. No JVD. CHEST: Bilaterally decreased breath sounds. CARDIOVASCULAR: Regular rhythm. No gallop. No murmur. ABDOMEN: Soft. Positive bowel sounds. EXTREMITIES: CCE NEUROLOGICAL: Generalized weakness. LABORATORY DATA: White count 6.6, hemoglobin 8.7, hematocrit 25, platelets are 105. Chemistry panel, sodium 144, potassium 3.4, BUN 40, creatinine 3.6. A1c is 8.0. Troponin is 1.583. ASSESSMENT: 1. Acute cardiopulmonary arrest. 2. Fluid overload. 3. CHF. 4. Acute renal failure. 5. Generalized weakness. PLAN: 1. We will currently continue current treatment. 2. Added NG tube feeding with Nepro. 3. Continue bronchodilator treatment. 4. Weaning protocols. 5. Continue antibiotics. 6. ID is on consult and discussed with continued hemodialysis. Mike Alvarado M.D. DR: Francisco JOB#: [id number] CC:
--- NOTE | 2019-11-02 19:05 | NUR ---
RESPIRATORY NOTE: R$eceived pt on AC 18, 450VT, 100%, PEEP +10. Pt intubated w/ ETT 7.5 @ 24cm lipline, secured by anchorfast. Pt is alert/awake, responds to stimuli. B/S betty. diminished, sxn small amounts of thick/thin, pale-yellow secretions. Pt's SpO2 is unstable, dropping as low as 68%, MD aware of desaturation on current vent settings. Vent plugged into red outlet, ambubag at bedside. Pt in no apparent distress at this time. Will continue to monitor pt.
--- NOTE | 2019-11-02 19:20 | NUR ---
HAND-OFF: Report given to ANDI Jeffers.
--- NOTE | 2019-11-02 19:30 | NUR ---
NURSE NOTES: Received pt having hemodialysis at this time. Pt was having hypotensive problems on dialysis and currently on Levophed gtt at 20mcg/min. Pt however opens eyes to name, denies pain currently. Orally intubated and on vent settings of AC18 TV 450 fiO2 1.0 peep 10 but saturating btwn 70-78%. NSR on the monitor. OGT in place but TF currently on hold. Will continue to monitor and get full assessment once HD finished.
[2019-11-02] MEDS ORDERED: Dyna-Hex 2% Top Sol 2oz TOPIC SCH (20:00)
--- NOTE | 2019-11-02 20:30 | NUR ---
NURSE NOTES: HD finished and HD nurse reports a UF of 3000mls. Tolerated dialysis as reported. Pt opens eyes to name and responds by shaking head. right IJ Haile cath with pigtail intact, Levophed increased to 30mcg/min. Heparin gtt also infuses at 18units/kg/h via Left AC. NGTF resumed at 20ml/h. FC still in but currently anuric. Right toes amputated; wrapped with Kerlix and elevated on pillows. Right arm edematous. Will continue to monitor VS, O2 sats and titrate Levophed accordingly
[2019-11-02] MEDS: Iron Sucrose 100 MG in NS 55 ML IV SCH (21:31)
[2019-11-02] MEDS: Atorvastatin 20mg tab ORAL SCH (21:37)
--- NOTE | 2019-11-02 22:30 | NUR ---
NURSE NOTES: PTT >150. [facility] called and gave new orders for Heparin. Gtt to be stopped for 60min to resume at 14units/kg/h ; next PTT at 0530.
--- NOTE | 2019-11-02 23:30 | NUR ---
NURSE NOTES: Still O2 sats continue to read 70-75% even with new probes. Pt's breathing agonal, HR 42-45; RT manually bagged pt. Informed Dr Bower and aware of low sats. Ordered to add Dopamine gtt for bradycardia. Pt's O2 sat improved slightly after manual bagging.
[2019-11-03] VITALS (34 sets, daily range): BP systolic 40–179; BP diastolic 14–81
[2019-11-03] MEDS ORDERED: DOPamine 400mg/250ml 250 ML IV SCH
--- NOTE | 2019-11-03 | NUR ---
NURSE NOTES: Afebrile, extremities cold. O2 sat 81%, NSR, Levophed gtt continues at 30mcg/min. Will start Dopamine and slowly titrate Levophed down. Suctioned but pt dry. Anuric
--- NOTE | 2019-11-03 02:00 | NUR ---
NURSE NOTES: Remains to have low O2 sats but pt doesn't appear to be in any distress. fiO2 continues at 100% with peep 10. Dopamine now also infusing at 5mcg/kg/min. Levophed at 20mcg/min.
--- NOTE | 2019-11-03 04:00 | NUR ---
NURSE NOTES: No BM, anuric but noted some milky material on the matute tube. Irrigated. PIV site on LAC intact. Right foot dressing dry and intact. Complete bed bath done. Replaced new sat probe. still showing low sats, in the 60's. Pt shows no signs of any distress otherwise. Grimaces to pain; femoral pulses palpable.
[2019-11-03] MEDS: NovoLOG Insulin Flexpen SUBQ SCH (05:42)
--- NOTE | 2019-11-03 06:00 | NUR ---
NURSE NOTES: O2 sats remains low but pt appears to be not in distress. No changes on vent settings. MD aware of low sat readings.
[2019-11-03 06:09] LABS: HEMATOCRIT 25.5 % (37.0-47.0); HEMOGLOBIN 8.3 G/DL (12.0-16.0); MEAN CORPUSCULAR VOLUME 94 FL (80-99); PLATELET COUNT 123 K/UL (150-450); RED BLOOD COUNT 2.73 M/UL (4.20-5.40); RED CELL DISTRIBUTION WIDTH 17.7 % (11.6-14.8); WHITE BLOOD COUNT 6.4 K/UL (4.8-10.8)
[2019-11-03 06:40] LABS: ALANINE AMINOTRANSFERASE 305 U/L (12-78); ALBUMIN 1.5 G/DL (3.4-5.0); ALBUMIN/GLOBULIN RATIO 0.3 (1.0-2.7); ALKALINE PHOSPHATASE 273 U/L (46-116); ANION GAP 12 mmol/L (5-15); ASPARTATE AMINO TRANSFERASE 260 U/L (15-37); BILIRUBIN,TOTAL 1.1 MG/DL (0.2-1.0); BLOOD UREA NITROGEN 35 mg/dL (7-18); CALCIUM 7.9 MG/DL (8.5-10.1); CARBON DIOXIDE 23 MMOL/L (21-32); CHLORIDE 102 MMOL/L (98-107); CREATININE 3.7 MG/DL (0.55-1.30); SODIUM 137 MMOL/L (136-145)
[2019-11-03 06:46] LABS: BILIRUBIN,DIRECT 0.9 MG/DL (0.0-0.3)
[2019-11-03] MEDS ORDERED: Heparin 25,000u/D5W 500ml 500 ML IV SCH ×2 (07:15→08:00)
--- NOTE | 2019-11-03 07:15 | NUR ---
HAND-OFF: Report given to Marian Figueroa RN.
--- NOTE | 2019-11-03 07:27 | NUR ---
NURSE NOTES: Called and spoke with DOROTHY at this time. Informed him of change of condition. Currently her heart has stopped and ICU team is working on her. Wants everything done. Full code.
--- NOTE | 2019-11-03 07:35 | NUR ---
JOSH SILVER 1: Josh silver was called at 0724. Took pt off vent and start bagging via ambu bag 15L 100%FiO2 with peep valve of 15 by me and chest compression was done by RN Alan. Dr. Randolph felt pulses at 0729.ROSC at 0735. ABG was drawn by Dr. Randolph at femoral artery and was run by me, reported result to Dr. Randolph. Pt was back on the vent with the same settings per RT Hilaria.
[2019-11-03] MEDS ORDERED: Sodium Bicarbonate 50ml Carp ONE (07:39)
[2019-11-03] MEDS ORDERED: NS 275ml ONE (07:39)
[2019-11-03] MEDS ORDERED: D5W 550ml IV ONE (07:39)
[2019-11-03] MEDS ORDERED: Tubing IV Secondary IV ONE (07:39)
--- NOTE | 2019-11-03 07:40 | NUR ---
JOSH SILVER 2: Josh silver was called again at 0737. Took pt off vent and start bagging via ambu bag 15L 100%FiO2 with peep valve of 15 by me and chest compression was done by Dr. Randolph. Patient was pronounced at [address] Randolph.
[2019-11-03] MEDS ORDERED: EPINEPHrine 1mg/1ml Amp 1 MG in D5W 249 ML IV SCH (08:00)
--- NOTE | 2019-11-03 08:21 | Emergency Room Report ---
Physical Exam Called for Code Blue. Patient on Dopamine and Levophed maxed. Decreasing O2 sats. Apparently unresponsive this morning. Mike. One epi administered before my arrival. Last 24 Hour Vital Signs Date Time Temp Pulse Resp B/P (MAP) Pulse Ox O2 Delivery O2 Flow Rate FiO2 11/03/19 06:45 77 22 114/46 (68) 39 11/03/19 06:30 77 18 113/48 (69) 80 11/03/19 06:15 77 19 110/46 (67) 81 11/03/19 06:00 76 16 101/40 (60) 81 11/03/19 06:00 113/48 11/03/19 06:00 113/48 11/03/19 05:53 75 14 11/03/19 05:45 76 18 117/43 (67) 86 11/03/19 05:30 72 19 112/44 (66) 68 11/03/19 05:28 79 13 111/41 (64) 68 11/03/19 05:15 76 18 85/74 (78) 63 11/03/19 05:15 80 22 100 11/03/19 05:00 77 17 106/42 (63) 58 11/03/19 05:00 106/42 11/03/19 05:00 106/42 11/03/19 04:45 73 18 113/42 (65) 59 11/03/19 04:30 73 15 112/44 (66) 37 11/03/19 04:15 73 18 99/34 (55) 39 11/03/19 04:00 98.6 74 19 93/81 (85) 45 11/03/19 04:00 93/81 11/03/19 04:00 93/81 11/03/19 04:00 100 11/03/19 04:00 69 11/03/19 04:00 Mechanical Ventilator 11/03/19 03:45 81 19 126/48 (74) 47 11/03/19 03:30 71 17 120/44 (69) 47 11/03/19 03:15 89 22 125/44 (71) 49 11/03/19 03:00 165/71 11/03/19 03:00 165/71 11/03/19 03:00 104 22 165/51 (89) 62 11/03/19 02:50 77 22 100 11/03/19 02:45 89 20 127/48 (74) 50 11/03/19 02:30 81 19 128/46 (73) 45 11/03/19 02:27 125/50 11/03/19 02:15 84 22 125/50 (75) 45 11/03/19 02:00 122/43 11/03/19 02:00 122/43 11/03/19 02:00 88 20 122/43 (69) 47 11/03/19 01:45 112 20 163/58 (93) 66 11/03/19 01:30 105 21 172/53 (92) 63 11/03/19 01:15 109 22 178/52 (94) 71 11/03/19 01:05 108 22 100 11/03/19 01:00 108 20 179/55 (96) 80 11/03/19 01:00 179/55 11/03/19 01:00 179/55 11/03/19 00:45 69 20 126/51 (76) 56 11/03/19 00:45 114/44 11/03/19 00:30 64 19 114/44 (67) 54 11/03/19 00:15 60 19 89/40 (56) 40 11/03/19 00:00 98.6 81 25 159/45 (83) 79 11/03/19 00:00 82 11/03/19 00:00 100 11/03/19 00:00 159/45 11/03/19 00:00 Mechanical Ventilator 11/02/19 23:45 66 47 169/50 (89) 91 11/02/19 23:30 71 18 121/44 (69) 57 11/02/19 23:15 78 22 161/136 (144) 74 11/02/19 23:00 69 18 145/118 (127) 56 11/02/19 23:00 121/44 11/02/19 23:00 67 20 100 11/02/19 22:45 64 21 116/43 (67) 49 11/02/19 22:30 61 21 123/44 (70) 38 11/02/19 22:15 63 22 118/43 (68) 51 11/02/19 22:00 71 20 143/44 (77) 65 11/02/19 22:00 143/44 11/02/19 21:45 60 20 78/39 (52) 78 11/02/19 21:42 101/43 11/02/19 21:30 72 20 101/43 (62) 76 11/02/19 21:15 77 22 145/45 (78) 80 11/02/19 21:10 73 21 100 11/02/19 21:00 141/39 11/02/19 21:00 61 23 141/39 (73) 68 11/02/19 20:45 70 24 128/43 (71) 70 11/02/19 20:30 71 26 145/43 (77) 69 11/02/19 20:15 73 26 142/44 (76) 70 11/02/19 20:00 100 11/02/19 20:00 Mechanical Ventilator 11/02/19 20:00 128/53 11/02/19 20:00 98.7 69 26 128/53 (78) 68 11/02/19 20:00 69 11/02/19 19:45 73 23 148/46 (80) 82 11/02/19 19:30 75 24 142/49 (80) 77 11/02/19 19:15 73 25 136/54 (81) 75 11/02/19 19:01 75 28 100 11/02/19 19:00 75 24 144/47 (79) 70 11/02/19 19:00 144/47 11/02/19 18:42 71 19 148/47 (80) 71 11/02/19 18:30 106/54 11/02/19 18:30 50 16 88/44 (59) 71 11/02/19 18:15 67 19 118/40 (66) 77 11/02/19 18:00 60 19 84/35 (51) 70 11/02/19 18:00 83/64 11/02/19 17:58 83/64 11/02/19 17:00 68 22 90/69 (76) 86 11/02/19 17:00 63 23 100 11/02/19 16:00 66 11/02/19 16:00 100 11/02/19 16:00 99.3 65 27 94/43 (60) 95 11/02/19 16:00 Mechanical Ventilator 11/02/19 15:02 70 22 100 11/02/19 15:00 68 20 111/42 (65) 85 11/02/19 15:00 70 20 111/42 (65) 87 11/02/19 14:00 71 19 124/44 (70) 84 11/02/19 14:00 72 19 120/66 (84) 82 11/02/19 13:00 74 19 121/48 (72) 83 11/02/19 12:37 75 25 100 11/02/19 12:00 99.5 74 24 112/45 (67) 76 11/02/19 12:00 74 11/02/19 12:00 Mechanical Ventilator 11/02/19 11:00 75 20 124/59 (80) 85 11/02/19 11:00 75 22 143/48 (79) 84 11/02/19 10:51 75 26 100 11/02/19 10:00 75 22 143/48 (79) 84 11/02/19 09:55 100 11/02/19 09:00 100.1 79 24 137/49 (78) 86 11/02/19 08:55 82 26 100 Sp02 EP Interpretation: reviewed, abnormal - interpreted as low by me General Appearance: other - unresponsive, Chronically Ill Eyes: bilateral eye other - unreactive pupils ENT: moist mucus membranes, other - ET tube Neck: other - symmetrical Respiratory: other - equal BS Cardiovascular #1: other, edema Cardiovascular #2: 1+ femoral (R) - CPR Gastrointestinal: other - G tube, overweight Genitourinary: other - Peña Musculoskeletal: other - BKA L Neurologic: other - unresponsive Psychiatric: other - unresponsive CPR/Code Blue CPR/Code Blue Narrative Code Blue #1 Code began at 724 CPR under progress when I arrived. CPR was supervised by me Epinephrine 1 amp had been given prior Patient was asystolic. Soon there were bradycardic complexes. Epinephrine was repeated. Atropine was given Equal breath sounds Heart rate increased and there were pulses. I obtained a blood gas from the right femoral area. Pulses were restored. H6.88, PCO2 89, PO2 45. This most likely was venous. 1 amp of bicarb was given. CODE BLUE #2 Patient became bradycardic. Epinephrine was given at 737. There were no pulses at this time and patient demonstrated PEA. At this point it was felt that further attempts at resuscitation were futile. The code was stopped and the patient was pronounced at 740 Medical Decision Making Diagnostic Impression: Primary Impression: Cardiopulmonary arrest ER Course This is the patient's second and 3rd codes during this hospitalization. She was admitted with sepsis. She is on maximal pressors. Initial code resulted in return of spontaneous circulation. Second code ended with termination of resuscitation attempts as the patient demonstrated futile care. Patient pronounced at 740. Rhythm Strip Diag. Results EP Interpretation: yes Rhythm: no PVC's, no ectopy, other - Atrial fibrillation Status: worsened Disposition: Condition: Referrals: Jake Alvarado MD (PCP) Bk Randolph MD Nov 03, 2019 08:21
[2019-11-03] MEDS ORDERED: Azithromycin 250mg tab ORAL SCH (09:00)
--- NOTE | 2019-11-03 09:00 | NUR ---
NURSE NOTES: Report received from ANDI Craft. Pt received not responsive to verbal or physical stimuli. HR on monitor and storage bin tender in the 40's- 50's. B/P: 114/46. O2Sat in the 50's. Orally intubated and on vent settings of AC18 TV 450 fiO2 1.0 peep 10. RT attempted to bag pt; however no changes in O2Sat. Right IJ Haile cath with pigtail noted. Left AC 20g. Pt on Levophed at 20mcg/min and Dopamine running at 10mcg/kg/min. Heparin drip at 14 units/kg- held at 0718 as instructed by pharmacy d/t PTT results. OGT in place running Nepro @ 35mL/hr. CODE BLUE 1: Pt became hypotensive, despite pressors, 40/14. HR Mike at 28. Pt checked for pulse, however pulseless. Sam silver was called at 0724. Chest compressions initiated and RT took pt off vent and started bagging via ambu bag 15L 100%FiO2 with peep valve of 15. Dr. Randolph felt pulses at 0729. ROSC at 0735. ABG was drawn by Dr. Randolph at femoral artery. pH 6.866, pCO2 89.7, pO2 45.3, HCO3 15.9. Pt was back on the vent settings AC 20, TV 450, FiO2 100%, PEEP 10. CODE BLUE 2: Sam silver was called again at 0737. Chest compressions began by Dr. Randolph. RT Took pt off of vent and start bagging via ambu bag 15L 100% FiO2 with peep valve of 15. Pt remained in PEA, despite resuscitation attempt.Patient was pronounced at [address] Alvarado notified via voicemail at 0751. Pt's , Vic Frias, notified. [employer] notified at 08:13, spoke to Jonelle (Ref# [id number]). Shop Repairer notified at 0900, spoke to Ms. 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
--- NOTE | 2019-11-03 12:45 | NUR ---
NURSE NOTES: Pt's body was removed off of the unit and released to a removal tech from [facility] services, as consented by pt's , Vic Frias.
--- NOTE | 2019-11-03 21:15 | Discharge Summary ---
DATE OF ADMISSION: 10/29/2019 DATE OF DISCHARGE: 11/03/2019 HOSPITAL COURSE: The patient was an elderly 64-year-old female who came to the emergency room for feeling generalized weakness and was found as in acute renal failure which was before. The patient was admitted on [place], also had UTI and septic shock. Discussed with Nephrology. Hemodialysis catheter was placed, was dialyzed. The patient had Code Blue where she was intubated, was transferred to ICU. The patient did slightly better. Next day, she was a little bit more responsive, but later on this morning, the patient had cardiopulmonary arrest. We tried to resuscitate run Code Blue two times. The patient finally due to the multiorgan failure. Discussed with the who is on the way to see the patient. Mike Alvarado M.D. DR: Francisco JOB#: [id number] CC:
--- NOTE | 2019-11-05 11:35 | Discharge Summary ---
Discharge Summary Discharge Summary _ DATE OF ADMISSION: 10/29/2019 DATE OF DISCHARGE: 11/03/2019 Addendum: FINAL DIAGNOSES: Acute cardiopulmonary arrest Sepsis Fluid overload with pulmonary edema and infiltrate/mass in the right upper lobe Acute renal failure Generalized weakness Non-ST elevated LA with elevation of troponin Acute respiratory failure, intubated on vent Severe anemia requiring blood transfusion Hypertension Proteus UTI/pyelonephritis Right foot wound infection Shock liver Full-thickness stage IV sacral pressure injury; partial-thickness stage II on the medial left upper thigh; unstageable pressure injury to the right heel; TMA right foot; 01 full-thickness ulcer right plantar foot, present on admission DISPOSITION: Patient . I have been assigned to complete a discharge summary on this account, I was not involved with the patient's management.--KODY Tate Jacqueline Robles NP Nov 05, 2019 11:35
== END 2019-11-03 07:40 | disposition expired | DRG 871 ==
LOC: EDBD 18:02 → EDBEDREQ 18:44 → EMR 19:13 → 2W 19:21 → EDBEDREQ 21:05 → EDBEDREQSVC 21:05 → EDBEDREQ 23:22 → ICU 11-01 14:27
PROC: 30233N1 Transfusion of Nonautologous Red Blood Cells into Peripheral Vein, Percutaneous Approach (ICD-10-PCS; principal; 2019-10-29)
PROC: 5A12012 Performance of Cardiac Output, Single, Manual (ICD-10-PCS; principal; 2019-10-29)
PROC: 05HM33Z Insertion of Infusion Device into Right Internal Jugular Vein, Percutaneous Approach (ICD-10-PCS; 2019-10-31)
PROC: 3E03328 Introduction of Oxazolidinones into Peripheral Vein, Percutaneous Approach (ICD-10-PCS; 2019-11-01)
PROC: 5A1945Z Respiratory Ventilation, 24-96 Consecutive Hours (ICD-10-PCS; 2019-11-01)
PROC: 0BH17EZ Insertion of Endotracheal Airway into Trachea, Via Natural or Artificial Opening (ICD-10-PCS; 2019-11-01)
DX: A41.9 Sepsis, unspecified organism (principal); L89.154 Pressure ulcer of sacral region, stage 4; L89.893 Pressure ulcer of other site, stage 3; K72.00 Acute and subacute hepatic failure without coma; I21.4 Non-ST elevation (NSTEMI) myocardial infarction; R65.21 Severe sepsis with septic shock; N18.6 End stage renal disease; J96.91 Respiratory failure, unspecified with hypoxia; N39.0 Urinary tract infection, site not specified; N17.9 Acute kidney failure, unspecified; I13.2 Hypertensive heart and chronic kidney disease with heart failure and with stage 5 chronic kidney disease, or end stage renal disease; R56.9 Unspecified convulsions; I50.9 Heart failure, unspecified; E87.5 Hyperkalemia; D64.9 Anemia, unspecified; E87.70 Fluid overload, unspecified; B96.4 Proteus (mirabilis) (morganii) as the cause of diseases classified elsewhere; L08.89 Other specified local infections of the skin and subcutaneous tissue; L89.892 Pressure ulcer of other site, stage 2; L89.610 Pressure ulcer of right heel, unstageable; I73.9 Peripheral vascular disease, unspecified; Z86.73 Personal history of transient ischemic attack (TIA), and cerebral infarction without residual deficits; I12.9 Hypertensive chronic kidney disease with stage 1 through stage 4 chronic kidney disease, or unspecified chronic kidney disease; E83.39 Other disorders of phosphorus metabolism; Z89.431 Acquired absence of right foot; E78.5 Hyperlipidemia, unspecified
CPT/HCPCS: 36415; 36569; 36600; 71045; 74018; 76700; 76937; 80048; 80053; 80202; 80299; 81003; 82140; 82248; 82270; 82550; 82553; 82570; 82607; 82728; 82746; 82803; 82962; 83036; 83540; 83550; 83605; 83690; 83735; 83880; 84100; 84300; 84439; 84443; 84484; 85007; 85025; 85044; 85379; 85610; 85730; 86706; 86710; 86850; 86900; 86901; 86920; 87040; 87070; 87081; 87086; 87181; 87205; 92950; 93005; 93306; 93970; 94002; 94003; 94640; 94664; 96361; 96374; 96375; 99291; 99292; J0171; J1815; J7030; J7620; J8499